=== PATIENT | female | born 1970 | race Caucasian/White ===

== ENCOUNTER 2016-03-31 09:43 | Emergency (ER) | payer OTHER ==
[~2016-03-31] VITALS: Ht 162.6 cm; Wt 61.2 kg
[~2016-03-31 09:43] MED LIST: ACID1TAB14 PO; ASPI81TA44 PO; Cholestyramine/Aspartame PO; EZET10TA3 PO; FAMO-63 PO; FLUC100T7 PO; HYDR-2762 PO; HYDR-971 PO; HYDR200T PO; LEVO150T PO; LEVO50TA PO; METO25TA2 PO; ORPH100T PO; OXYC-323 PO; PRAV40TA2 PO; PRED-220 PO; PRED20TA PO; PRED50TA PO; PRED5TAB PO; SULF1TAB24 PO; Vancomycin Hcl PO
[2016-03-31 10:50] VITALS: BP 146/79
[2016-03-31] MEDS ORDERED: PRED20TA PO (11:39)
--- NOTE | 2016-03-31 11:39 | PHYS DOC ---
Past Medical History Past Medical History: Arthritis, High Cholesterol, Hypertension, Kidney Stone, Other Additional Past Medical Histor: RA, CDiff Past Surgical History: Cholecystectomy, Hysterectomy, Other Additional Past Surgical Histo: cystoscopy, C4C5 fusion, ACL repair Alcohol Use: None Drug Use: None Adult General Chief Complaint Chief Complaint: Neck Pain HPI HPI Patient is a 46 year old female presents emergency department stating she is having neck pain and right upper back pain. She states the pain radiates into her chest and down into her right arm. She was seen here recently for the same type of pain and discomfort was placed on prednisone Norflex and Percocet. She states that this really didn't help she does state the prednisone helped quite a bit. She still has the Norflex but is completely out of the Percocet. She does have an appointment with her physician on Friday. Patient states that she has been placing heat on the neck and upper back area without relief. Patient denies any numbness or tingling down to her arms. She does have equal strength and equal uat tester bilaterally. Review of Systems Review of Systems Constitutional: Denies fever or chills [] Eyes: Denies change in visual acuity, redness, or eye pain [] HENT: Denies nasal congestion or sore throat [] Respiratory: Denies cough or shortness of breath [] Cardiovascular: No additional information not addressed in HPI [] GI: Denies abdominal pain, nausea, vomiting, bloody stools or diarrhea [] : Denies dysuria or hematuria [] Musculoskeletal: C/o upper right back pain and discomfort with increase pain turning the head to the left Integument: Denies rash or skin lesions [] Neurologic: Denies headache, focal weakness or sensory changes [] [] Allergies Allergies Allergies Coded Allergies Type Severity Reaction Last Updated Verified Iodinated Contrast Media - Oral and Allergy Severe Anaphylaxis 05/26/15 Yes cefdinir Allergy Severe anaphylaxis 03/19/16 Yes ceftriaxone Allergy Severe anaphylaxis 03/19/16 Yes shellfish derived Allergy Severe 05/26/15 Yes cefazolin Allergy Intermediate 05/26/15 Yes ciprofloxacin Allergy Intermediate 03/19/16 Yes codeine Allergy Intermediate MORPHINE OK, HYDROCODONE AT HOME 03/19/16 Yes erythromycin base Allergy Intermediate 12/01/14 Yes latex Allergy Intermediate Rash 05/26/15 Yes strawberry Allergy Unknown 03/19/16 Yes Physical Exam Physical Exam Constitutional: Well developed, well nourished, no acute distress, non-toxic appearance. [] HENT: Normocephalic, atraumatic, bilateral external ears normal, oropharynx moist, no oral exudates, nose normal. [] Eyes: PERRLA, EOMI, conjunctiva normal, no discharge. [] Neck: Normal range of motion, no tenderness, supple, no stridor. [] Cardiovascular:Heart rate regular rhythm, no murmur [] Lungs & Thorax: Bilateral breath sounds clear to auscultation [] Skin: Warm, dry, no erythema, no rash. [] Back: right paraspinal tenderness Extremities: No tenderness, no cyanosis, no clubbing, ROM intact, no edema. Equal uat tester, equal strength to upper extremities noted. Neurologic: Alert and oriented X 3, normal motor function, normal sensory function, no focal deficits noted. [] Psychologic: Affect normal, judgement normal, mood normal. [] Current Patient Data Vital Signs Vital Signs Date Time Temp Pulse Resp B/P Pulse Ox O2 Delivery O2 Flow Rate FiO2 03/31/16 10:50 99.0 106 18 100 Room Air 99.0 EKG EKG [] Radiology/Procedures Radiology/Procedures [] Course & Med Decision Making Course & Med Decision Making Pertinent Labs and Imaging studies reviewed. (See chart for details) Patient was recommended to continue to use the Norflex which she states she has plenty of pills left. We'll provide her with further prednisone for the next 5 days. We'll also recommended ibuprofen for pain and discomfort. Ice packs on 20 minutes off 20 minutes several times a day. Patient will be discharged home in stable condition signs and symptoms to return back to emergency department been provided. Patient agrees with treatment regimens and follow-up recommendations. [] Dragon Disclaimer Dragon Disclaimer This electronic medical record was generated, in whole or in part, using a voice recognition dictation system. Departure Departure Impression: Primary Impression: Cervical radiculopathy Disposition: HOME, SELF-CARE Condition: STABLE Referrals: EVELIA CORBETT (PCP) Patient Instructions: Soft Tissue Injury of the Neck, [id number] Additional Instructions: Activity as tolerated. Continue using her Norflex as you've been prescribed. Ibuprofen 800 mg every 8 hours with food stop taking few develop an upset stomach. Medications as prescribed. Ice packs on 20 minutes off 20 minutes several times a day. Keep your follow-up appointment that you have on Friday. Return back to emergency department sign symptoms of become worse. Scripts Prednisone 20 Mg Etvpep64 Mg PO DAILY #10 TAB Prov:CORY JIANG NP 03/31/16 CORY JIANG NP Mar 31, 2016 11:39
== END 2016-03-31 11:44 | disposition home or self-care (01) ==
LOC: ER 09:43
DX: M54.12 Radiculopathy, cervical region (principal); M19.90 Unspecified osteoarthritis, unspecified site; E78.00 Pure hypercholesterolemia, unspecified; I10 Essential (primary) hypertension; Z90.49 Acquired absence of other specified parts of digestive tract; Z87.442 Personal history of urinary calculi; Z90.710 Acquired absence of both cervix and uterus; Z91.041 Radiographic dye allergy status; Z91.040 Latex allergy status; Z88.5 Allergy status to narcotic agent; Z91.013 Allergy to seafood; Z88.8 Allergy status to other drugs, medicaments and biological substances; Z91.018 Allergy to other foods
CPT/HCPCS: 99283

== ENCOUNTER → 2016-04-05 | Outpatient (CLI) | payer OTHER ==
[2016-03-31 10:50] VITALS: BP 146/79
[~2016-04-05] MED LIST changes: +ALBU2.5V14 NEB; +BUDE10.2 IH; +IOHEXOL 180 MG/ML 10 ML VIAL. ONE; +ONDA4TAB7 PO; +VENTOLIN HFA18 GM INH; +methylPREDNISolone ACETATE 40 MG/ML VIAL. ONE; +methylPREDNISolone ACETATE 80 MG/ML VIAL. ONE
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
== END ==
LOC: PNCL 07:23
PROVIDERS: ATTEND Anesthesiology
DX: M50.123 Cervical disc disorder at C6-C7 level with radiculopathy (principal); I10 Essential (primary) hypertension; M19.90 Unspecified osteoarthritis, unspecified site; E03.9 Hypothyroidism, unspecified
CPT/HCPCS: 62321; J1030; J1040

== ENCOUNTER 2016-04-06 18:43 | Emergency (ER) | payer OTHER ==
[~2016-04-06] VITALS: Ht 162.6 cm; Wt 61.2 kg
[~2016-04-06 18:43] MED LIST changes: -IOHEXOL 180 MG/ML 10 ML VIAL. ONE; -ONDA4TAB7 PO; -methylPREDNISolone ACETATE 40 MG/ML VIAL. ONE; -methylPREDNISolone ACETATE 80 MG/ML VIAL. ONE
[2016-04-06] MEDS ORDERED: ONDANSETRON ODT 4 MG TAB.RAPDIS PO ONE (20:00)
[2016-04-06] MEDS ORDERED: HYDROMORPHONE 2 MG/ML VIAL. IM ONE (20:00)
[2016-04-06] MEDS ORDERED: OXYC-323 PO (20:40)
[2016-04-06] MEDS ORDERED: ONDA4TAB7 PO (20:40)
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
[2016-04-07 02:44] VITALS: BP 141/81
== END 2016-04-06 20:24 | disposition home or self-care (01) ==
LOC: ER 18:43
DX: M54.12 Radiculopathy, cervical region (principal); E78.00 Pure hypercholesterolemia, unspecified; I10 Essential (primary) hypertension; Z87.442 Personal history of urinary calculi; M19.90 Unspecified osteoarthritis, unspecified site; Z90.710 Acquired absence of both cervix and uterus; Z90.49 Acquired absence of other specified parts of digestive tract; Z88.2 Allergy status to sulfonamides; Z88.8 Allergy status to other drugs, medicaments and biological substances; Z88.1 Allergy status to other antibiotic agents; Z91.041 Radiographic dye allergy status; Z91.040 Latex allergy status; Z91.018 Allergy to other foods; Z88.5 Allergy status to narcotic agent
CPT/HCPCS: 96372; 99283; J1170; Q0162

== ENCOUNTER → 2016-04-11 | Outpatient (CLI) | payer OTHER ==
[2016-04-07 02:44] VITALS: BP 141/81
[~2016-04-11] MED LIST changes: +ONDA4TAB7 PO
--- NOTE | 2016-04-11 16:13 | KCIC ---
PROCEDURE CT cervical spine without contrast. HISTORY Cervical stenosis, fusion, history of fracture TECHNIQUE Noncontrast CT imaging was performed of the cervical spine, multiplanar reconstruction images submitted. Exposure: One or more of the following individualized dose reduction techniques were utilized for this exam: 1. Automated exposure control. 2. Adjustment of the mA and/or kV according to patient size. 3. Use of iterative reconstruction technique. COMPARISON 03/18/2016 MRI cervical spine exam [facility], no previous C cervical spine t exam available FINDINGS There again has been anterior cervical fusion at C4-C5 with intact anterior metallic plate and screws. There is likely at least partial interbody fusion at this level. There is mild degenerative disc disease at C3-4 and C5-C6, some endplate irregularity of C5-C6. Atlantoaxial distance is within normal limits, mild associated degenerative change. There is adequate alignment of the lateral masses C1 relative to C2. Occipital condylar-C1 articulation is maintained. C2-3: Spinal canal and neural foramina are adequate. C3-C4: There is minimal posterior bulge better seen on MRI, overall mild spinal stenosis. Osseous neural foramina are adequate. C4-5: Osseous spinal canal and neural foramina are adequate. C5-C6: There is minimal disc osteophyte complex somewhat greater in the left lateral recess. There is again likely mild spinal stenosis. There is left uncovertebral degenerative change, mild facet degenerative change. There is moderate narrowing of the left neural foramen, right neural foramen adequate. C6-7: Osseous spinal canal and neural foramina are adequate C7-T1: Osseous spinal canal and neural foramina are adequate. IMPRESSION 1. There is intact anterior cervical fusion hardware C4-5, partial interbody fusion at this level. 2. There is mild degenerative disc disease at C3-4 and C5-C6, mild spondylosis. There is again suspected mild spinal stenosis at C5-C6 and C3-4. 3. There is moderate narrowing of the left C5-C6 neural foramen due to uncovertebral degenerative change. Electronically signed by: Michi Monet MD (Apr 11, 2016 16:11:51)
== END | disposition home or self-care (01) ==
LOC: KCIC CT 13:33
PROVIDERS: ATTEND Neurological Surgery
DX: M50.322 Other cervical disc degeneration at C5-C6 level (principal); M47.892 Other spondylosis, cervical region
CPT/HCPCS: 72125

== ENCOUNTER → 2016-04-12 | Outpatient (CLI) | payer OTHER ==
[2016-04-07 02:44] VITALS: BP 141/81
--- NOTE | 2016-04-12 15:50 | KCIC ---
PROCEDURE MRI cervical spine without contrast. HISTORY Cervical radiculopathy, previous anterior cervical fusion, headaches and right arm pain TECHNIQUE Multiplanar, multi sequential non contrast MR imaging was performed of the cervical spine. COMPARISON CT cervical spine April 11, 2016, also MRI cervical spine 03/18/2016 FINDINGS As seen previously, there has been anterior cervical fusion at C4-C5. Cervical vertebral body stature and AP alignment are maintained. Cervical cord caliber is within normal limits without convincing, reproducible signal abnormality on the various image sequences. There is no significant marrow edema, some artifact created by hardware. There is mild degenerative disc disease at C3-4 and C5-C6. C2-3: Spinal canal and neural foramina are adequate. C3-C4: There is again minimal bulge. There is posterior annular tear. Central canal is minimally narrowed to 8 millimeters. Neural foramina are adequate. C4-5: Spinal canal and neural foramina are adequate. C5-C6: There is some artifact created by hardware. There is minimal disc osteophyte complex relatively greater in the left lateral recess. Central canal is minimally narrowed to approximately 9 millimeters. Right neural foramen is adequate. There is left uncovertebral and facet degenerative change, moderate narrowing of the left neural foramen. C6-7: Spinal canal and neural foramina are adequate. C7-T1: Spinal canal and neural foramina are adequate. IMPRESSION 1. There again has been anterior cervical fusion C4-5. 2. There is mild spinal stenosis C3-4 and C5-C6. 3. There is moderate narrowing of the left C5-C6 neural foramen due to facet and uncovertebral degenerative change, right neural foramen adequate at this level. 4. There is mild degenerative disc disease and spondylosis at C5-C6, mild degenerative disc disease C3-4. Electronically signed by: Michi Monet MD (Apr 12, 2016 15:49:23)
== END | disposition home or self-care (01) ==
LOC: KCIC MRI 14:12
PROVIDERS: ATTEND Neurological Surgery
DX: M48.02 Spinal stenosis, cervical region (principal); M50.31 Other cervical disc degeneration, high cervical region; M50.322 Other cervical disc degeneration at C5-C6 level; M47.892 Other spondylosis, cervical region
CPT/HCPCS: 72141

== ENCOUNTER 2016-07-13 23:23 | Inpatient (IN) | payer OTHER ==
[~2016-07-13] VITALS: Ht 162.6 cm; Wt 59.0 kg
[~2016-07-13 23:23] MED LIST changes: +EZET10TA18 PO; -EZET10TA3 PO
[2016-07-13 23:56] LABS: BASO # 0.1 x10^3/uL (0.0-0.2); BASO % 0 % (0-3); EOS % 0 % (0-3); HEMATOCRIT 41.9 % (36.0-47.0); HEMOGLOBIN 13.6 g/dL (12.0-15.5); LYMPH # 5.2 x10^3/uL (1.0-4.8); LYMPH % 33 % (24-48); MEAN CORPUSCULAR HEMOGLOBIN 29 pg (25-35); MEAN CORPUSCULAR HGB CONC 33 g/dL (31-37); MEAN CORPUSCULAR VOLUME 91 fL (79-100); MONO % 7 % (0-9); NEUT % 59 % (31-73); PLATELET COUNT 356 x10^3/uL (140-400); RED BLOOD COUNT 4.62 x10^6/uL (3.50-5.40); RED CELL DISTRIBUTION WIDTH 14.3 % (11.5-14.5); WHITE BLOOD COUNT 15.9 x10^3/uL (4.0-11.0)
[2016-07-14] LABS: BILIRUBIN,URINE NEGATIVE (NEG); GLUCOSE,URINE NEGATIVE (NEG); NITRITE,URINE NEGATIVE (NEG); PH,URINE 6.5; PROTEIN,URINE NEGATIVE (NEG-TRACE); UROBILINOGEN,URINE 0.2 mg/dL (0.2 mg/dL)
[2016-07-14] MEDS ORDERED: IV NORMAL SALINE 1000ML BAG 1,000 ML IV ONE
[2016-07-14] MEDS ORDERED: KETOROLAC TROMETHAMINE 30 MG/ML INJ. IV ONE
[2016-07-14] MEDS ORDERED: MORPHINE SULFATE 4 MG/ML DISP.SYRIN. IV ONE
--- NOTE | 2016-07-14 00:09 | PHYS DOC ---
Past Medical History Past Medical History: Kidney Stone Additional Past Medical Histor: pancreatitis, C-diff, thyroid cancer, rheumatoid arthritis Past Surgical History: Hysterectomy, Other Additional Past Surgical Histo: thyroidectomy Alcohol Use: None Drug Use: None Adult General Chief Complaint Chief Complaint: FLANK PAIN HPI HPI This is a 46-year-old female who's had some right-sided flank pain that wraps around from her right flank her right upper quadrant for the last day. Patient states she's had multiple episodes of nausea and vomiting as well. She states she's had some dysuria type symptoms but denies any hematuria. She rates her pain a 7 out of 10 on the pain scale. She states she's had history of gallbladder surgery. On arrival, the patient does not appear to be in any acute distress. Patient is afebrile and nontoxic in appearance. Review of Systems Review of Systems Constitutional: Denies fever or chills [] Eyes: Denies change in visual acuity, redness, or eye pain [] HENT: Denies nasal congestion or sore throat [] Respiratory: Denies cough or shortness of breath [] Cardiovascular: No additional information not addressed in HPI [] GI: Denies abdominal pain, nausea, vomiting, bloody stools or diarrhea [] : Has dysuria, denies hematuria [] Musculoskeletal: Denies back pain or joint pain [] Integument: Denies rash or skin lesions [] Neurologic: Denies headache, focal weakness or sensory changes [] Endocrine: Denies polyuria or polydipsia [] Current Medications Current Medications Current Medications Medications (Trade) Dose Ordered Sig/Adia Start Time Stop Time Status Last Admin Dose Admin Ceftriaxone Sodium 0 ml @ As Directed STK-MED ONCE 07/14/16 01:05 07/14/16 01:06 DC Diphenhydramine HCl (Benadryl) 50 mg 1X ONCE 07/14/16 01:30 07/14/16 01:31 DC Hydromorphone HCl (Dilaudid) 1 mg 1X ONCE 07/14/16 01:00 07/14/16 01:01 DC 07/14/16 01:20 1 MG Ketorolac Tromethamine (Toradol) 30 mg 1X ONCE 07/14/16 00:00 07/14/16 00:01 DC 07/14/16 00:10 30 MG Levofloxacin/ Dextrose 150 ml @ 100 mls/hr 1X ONCE 07/14/16 01:30 07/14/16 02:59 DC 07/14/16 01:19 100 MLS/HR Morphine Sulfate 4 mg 1X ONCE 07/14/16 00:00 07/14/16 00:01 DC 07/14/16 00:10 4 MG Ondansetron HCl (Zofran) 4 mg 1X ONCE 07/14/16 01:30 07/14/16 01:31 DC 07/14/16 01:20 4 MG Sodium Chloride 1,000 ml @ 1,000 mls/hr 1X ONCE 07/14/16 00:00 07/14/16 00:59 DC 07/14/16 00:10 1,000 MLS/HR Allergies Allergies Allergies Coded Allergies Type Severity Reaction Last Updated Verified Iodinated Contrast Media - Oral and Allergy Severe Anaphylaxis 05/26/15 Yes cefdinir Allergy Severe anaphylaxis 03/19/16 Yes ceftriaxone Allergy Severe anaphylaxis 03/19/16 Yes shellfish derived Allergy Severe 05/26/15 Yes cefazolin Allergy Intermediate 05/26/15 Yes ciprofloxacin Allergy Intermediate RASH ONLY 07/14/16 Yes codeine Allergy Intermediate MORPHINE OK, HYDROCODONE AT HOME 03/19/16 Yes erythromycin base Allergy Intermediate 12/01/14 Yes latex Allergy Intermediate Rash 05/26/15 Yes strawberry Allergy Unknown 03/19/16 Yes Physical Exam Physical Exam Constitutional: Well developed, well nourished, no acute distress, non-toxic appearance. [] HENT: Normocephalic, atraumatic, bilateral external ears normal, oropharynx moist, no oral exudates, nose normal. [] Eyes: PERRLA, EOMI, conjunctiva normal, no discharge. [] Neck: Normal range of motion, no tenderness, supple, no stridor. [] Cardiovascular:Heart rate regular rhythm, no murmur [] Lungs & Thorax: Bilateral breath sounds clear to auscultation [] Abdomen: Bowel sounds normal, soft, no tenderness, no masses, no pulsatile masses. [] Skin: Warm, dry, no erythema, no rash. [] Back: No tenderness, right CVA tenderness. [] Extremities: No tenderness, no cyanosis, no clubbing, ROM intact, no edema. [] Neurologic: Alert and oriented X 3, normal motor function, normal sensory function, no focal deficits noted. [] Psychologic: Affect normal, judgement normal, mood normal. [] Current Patient Data Vital Signs Vital Signs Date Time Temp Pulse Resp B/P (MAP) Pulse Ox O2 Delivery O2 Flow Rate FiO2 07/14/16 02:30 68 18 141/79 (99) 96 Room Air 07/13/16 23:54 99.3 99.3 Lab Values Laboratory Tests Test 07/13/16 23:40 07/13/16 23:50 White Blood Count 15.9 x10^3/uL (4.0-11.0) H Red Blood Count 4.62 x10^6/uL (3.50-5.40) Hemoglobin 13.6 g/dL (12.0-15.5) Hematocrit 41.9 % (36.0-47.0) Mean Corpuscular Volume 91 fL (79-100) Mean Corpuscular Hemoglobin 29 pg (25-35) Mean Corpuscular Hemoglobin Concent 33 g/dL (31-37) Red Cell Distribution Width 14.3 % (11.5-14.5) Platelet Count 356 x10^3/uL (140-400) Neutrophils (%) (Auto) 59 % (31-73) Lymphocytes (%) (Auto) 33 % (24-48) Monocytes (%) (Auto) 7 % (0-9) Eosinophils (%) (Auto) 0 % (0-3) Basophils (%) (Auto) 0 % (0-3) Neutrophils # (Auto) 9.4 x10^3uL (1.8-7.7) H Lymphocytes # (Auto) 5.2 x10^3/uL (1.0-4.8) H Monocytes # (Auto) 1.2 x10^3/uL (0.0-1.1) H Eosinophils # (Auto) 0.0 x10^3/uL (0.0-0.7) Basophils # (Auto) 0.1 x10^3/uL (0.0-0.2) Sodium Level 143 mmol/L (136-145) Potassium Level 3.9 mmol/L (3.5-5.1) Chloride Level 105 mmol/L (98-107) Carbon Dioxide Level 32 mmol/L (21-32) Anion Gap 6 (6-14) Blood Urea Nitrogen 19 mg/dL (7-20) Creatinine 0.7 mg/dL (0.6-1.0) Estimated GFR (Cockcroft-Gault) 90.1 Glucose Level 91 mg/dL (70-99) Calcium Level 8.6 mg/dL (8.5-10.1) Urine Collection Type U cath Urine Color Yellow Urine Clarity Clear Urine pH 6.5 Urine Specific Piru 1.020 Urine Protein Negative mg/dL (NEG-TRACE) Urine Glucose (UA) Negative mg/dL (NEG) Urine Ketones (Stick) Negative mg/dL (NEG) Urine Blood Negative (NEG) Urine Nitrite Negative (NEG) Urine Bilirubin Negative (NEG) Urine Urobilinogen Dipstick 0.2 mg/dL (0.2 mg/dL) Urine Leukocyte Esterase Moderate (NEG) Urine RBC 3-5 /HPF (0-2) Urine WBC >40 /HPF (0-4) Urine Squamous Epithelial Cells Few /LPF Urine Bacteria Few /HPF (0-FEW) Laboratory Tests 07/13/16 23:40 Laboratory Tests 07/13/16 23:40 EKG EKG [] Radiology/Procedures Radiology/Procedures CT abdomen and pelvis without contrast: Reason for examination: Right flank pain for one day. No hematuria. Helical images were obtained through the abdomen and pelvis with no intravenous or oral contrast administered. Reconstruction was performed in sagittal and coronal plane. Exposure: One or more of the following individualized dose reduction techniques were utilized for this examination: 1. Automated exposure control 2. Adjustment of the mA and/or kV according to patient size 3. Use of iterative reconstruction technique. The lung bases are clear. The heart size is normal with no pericardial effusion seen. The liver shows no focal lesions. There is some pneumobilia. Gallbladder is surgically absent. No abnormality is seen at the spleen, adrenal glands or pancreas. The abdominal aorta and inferior vena cava show no abnormalities. The kidneys bilaterally show no masses. There are nonobstructing renal calculi bilaterally. The right renal pelvis is mildly prominent and there does appear to be a tiny calculus in the right pelvis which is probably in the distal right ureter and measures approximately 3.7 mm in size. No abnormality seen in the appendix. The intestinal tract shows moderate amount of fecal material within the colon. There is no evidence of diverticulitis. There is no evidence of bowel obstruction or abnormally thickened bowel grijalva. No abnormality is seen at the bladder or vaginal cuff. No free fluid or free air is seen in the abdomen. No acute bony abnormalities are seen. IMPRESSION: Pneumobilia post cholecystectomy. Bilateral nonobstructing renal calculi. Mild right hydronephrosis with a 3.7 mm calculus in the distal right ureter. Electronically signed by: Rupa Gruber MD (07/14/2016 2:24 AM) Course & Med Decision Making Course & Med Decision Making Pertinent Labs and Imaging studies reviewed. (See chart for details) This 46-year-old female who's having some right-sided flank pain will have full laboratory work including a UA and a CT of her abdomen pelvis without contrast to rule out a ureteral stone as the cause of her symptoms. She has required multiple doses of Dilaudid. Her laboratory workup is fairly unremarkable other than a urinalysis that demonstrates moderate amount of leukocyte esterase and WBCs. Her CT of her abdomen and pelvis demonstrated a mild right-sided hydronephrosis with a 3.7 mm stone in the distal right ureter. In light of the fact that she has a UTI and a stone I will be admitting her for further treatment. A dose of IV Levaquin was given as the patient has significant cephalosporin allergy. A urology consult will be placed. I'll discuss the need to admit the patient with the hospitalist, Dr. Shen. As needed Dilaudid orders were given for her continued pain. Dragon Disclaimer Dragon Disclaimer This electronic medical record was generated, in whole or in part, using a voice recognition dictation system. Departure Departure Impression: Primary Impression: Pyelonephritis Additional Impression: Ureteral stone Disposition: ADMITTED INPATIENT Admitting Physician: Paula Shen Condition: STABLE Referrals: EVELIA CORBETT (PCP) Problem Qualifiers STEVE MORALES DO Jul 14, 2016 00:09
[2016-07-14 00:10] LABS: CALCIUM 8.6 mg/dL (8.5-10.1); CREATININE 0.7 mg/dL (0.6-1.0); GFR 90.1; POTASSIUM 3.9 mmol/L (3.5-5.1)
[2016-07-14 00:55] LABS: BACTERIA,URINE FEW /HPF (0-FEW); SQUAMOUS EPITHELIAL CELL,UR FEW /LPF; WBC,URINE >40 /HPF (0-4)
[2016-07-14] MEDS ORDERED: HYDROmorphone 2 MG/ML VIAL IV ONE ×2 (01:00→03:00)
[2016-07-14] MEDS ORDERED: CEFTRIAXONE 1 GM IV ONE (01:05)
[2016-07-14] MEDS ORDERED: [UNRECOGNIZED DRUG - OTHER] IV ONE (01:05)
[2016-07-14] MEDS ORDERED: ONDANSETRON PF 4 MG/2 ML VIAL. IV ONE ×2 (01:30)
[2016-07-14] MEDS ORDERED: diphenhydrAMINE 50 MG/ML VIAL IVP ONE (01:30)
--- NOTE | 2016-07-14 02:27 | RAD ---
CT abdomen and pelvis without contrast: Reason for examination: Right flank pain for one day. No hematuria. Helical images were obtained through the abdomen and pelvis with no intravenous or oral contrast administered. Reconstruction was performed in sagittal and coronal plane. Exposure: One or more of the following individualized dose reduction techniques were utilized for this examination: 1. Automated exposure control 2. Adjustment of the mA and/or kV according to patient size 3. Use of iterative reconstruction technique. The lung bases are clear. The heart size is normal with no pericardial effusion seen. The liver shows no focal lesions. There is some pneumobilia. Gallbladder is surgically absent. No abnormality is seen at the spleen, adrenal glands or pancreas. The abdominal aorta and inferior vena cava show no abnormalities. The kidneys bilaterally show no masses. There are nonobstructing renal calculi bilaterally. The right renal pelvis is mildly prominent and there does appear to be a tiny calculus in the right pelvis which is probably in the distal right ureter and measures approximately 3.7 mm in size. No abnormality seen in the appendix. The intestinal tract shows moderate amount of fecal material within the colon. There is no evidence of diverticulitis. There is no evidence of bowel obstruction or abnormally thickened bowel grijalva. No abnormality is seen at the bladder or vaginal cuff. No free fluid or free air is seen in the abdomen. No acute bony abnormalities are seen. IMPRESSION: Pneumobilia post cholecystectomy. Bilateral nonobstructing renal calculi. Mild right hydronephrosis with a 3.7 mm calculus in the distal right ureter. Electronically signed by: Rupa Gruber MD (07/14/2016 2:24 AM)
[2016-07-14] MEDS ORDERED: ACETAMINOPHEN 325 MG TABLET. PO PRN (02:45)
[2016-07-14] MEDS ORDERED: ONDANSETRON PF 4 MG/2 ML VIAL. IV PRN (03:00)
[2016-07-14 04:00] VITALS: BP 132/78
[2016-07-14] MEDS: HYDROmorphone 2 MG/ML VIAL IV PRN ×9 (04:47→22:24)
[2016-07-14] MEDS: IV NORMAL SALINE 1000ML BAG 1,000 ML IV SCH ×3 (04:48→17:44)
[2016-07-14 07:00] VITALS: BP 131/82
[2016-07-14 11:00] VITALS: BP 132/76
[2016-07-14] MEDS ORDERED: PROCHLORPERAZINE 10 MG/2 ML VIAL. IV PRN (13:00)
[2016-07-14] MEDS: KETOROLAC 15 MG/ML VIAL. IV PRN ×2 (13:17→19:54)
[2016-07-14] MEDS: TAMSULOSIN 0.4 MG CAP.ER.24H. PO SCH (14:30)
[2016-07-14 15:00] VITALS: BP 126/73
[2016-07-14] MEDS: EZETIMIBE 10 MG TABLET. PO SCH (15:00)
[2016-07-14] MEDS: LEVOTHYROXINE 100 MCG TABLET PO SCH (15:00)
[2016-07-14] MEDS: METOPROLOL SUCC 24HR ER 25 MG TAB.ER.24H. PO SCH (15:00)
[2016-07-14] MEDS: ONDANSETRON PF 4 MG/2 ML VIAL. IV PRN ×2 (15:36→22:24)
[2016-07-14 19:00] VITALS: BP 128/78
--- NOTE | 2016-07-14 19:23 | HP ---
ADMIT DATE: 07/14/2016 CHIEF COMPLAINT: Flank pain. HISTORY OF PRESENT ILLNESS: The patient is a pleasant 46-year-old female who presents with flank pain. She ranks it at 9/10. She has associated nausea. It has been occurring for a couple of days off and on. She has known previous kidney stones. We did a CAT scan ____ she has got another kidney stone. We are going to admit the patient and consult Dr. Oates. PAST MEDICAL HISTORY: Kidney stones, pancreatitis, C. difficile, thyroid cancer, rheumatoid arthritis, hysterectomy and thyroidectomy. ALLERGIES: IODINE, CEFAZOLIN, CIPRO, CODEINE, ERYTHROMYCIN, LATEX, STRAWBERRIES. FAMILY HISTORY: Kidney stones. SOCIAL HISTORY: She does not drink, smoke or take drugs. MEDICATIONS: Reviewed, please refer to the MRAD. REVIEW OF SYSTEMS: GENERAL: No history of weight change, weakness or fevers. SKIN: No bruising, hair changes or rashes. EYES: No blurred, double or loss of vision. NOSE AND THROAT: No history of nosebleeds, hoarseness or sore throat. HEART: No history of palpitations, chest pain or shortness of breath on exertion. LUNGS: Denies cough, hemoptysis, wheezing or shortness of breath. GASTROINTESTINAL: She complains of flank pain and nausea. GENITOURINARY: No history of frequency, urgency, hesitancy or nocturia. NEUROLOGIC: Denies history of numbness, tingling, tremor or weakness. PSYCHIATRIC: No history of panic, anxiety or depression. ENDOCRINE: No history of heat or cold intolerance, polyuria or polydipsia. EXTREMITIES: Denies muscle weakness, joint pain, pain on walking or stiffness. PHYSICAL EXAMINATION: VITAL SIGNS: Temperature afebrile, pulse 62, respirations 18, blood pressure 152/89. GENERAL: She is alert, cooperative, complaining of pain. HEART: Normal S1, S2. LUNGS: Clear. ABDOMEN: Soft. Decreased bowel sounds, tender in the right quadrant. EXTREMITIES: No edema. SKIN: No rashes. PSYCHIATRIC: She is anxious. VASCULAR: Good capillary refill. ENDOCRINE: No thyromegaly. LYMPHATICS: No cervical nodes. HEMATOPOIETIC: No bruising. LABORATORY DATA: White count 15, hemoglobin 14, platelets 356. ASSESSMENT AND PLAN: Symptomatic kidney stones. The patient has been admitted. We will strain her urine, IV antibiotics, IV fluids, p.r.n. narcotics, consult Dr. Oates, continue home medicines. PROGNOSIS: Guarded. ALVINO DUQUE DO DR: NICOLAS/sarah JOB#: [id number] / [id number]
[2016-07-14] MEDS: ATORVASTATIN CALCIUM 10 MG TABLET. PO SCH (19:54)
[2016-07-14 23:00] VITALS: BP 120/65
--- NOTE | 2016-07-15 00:03 | ACF ---
Admission Forms Criteria PYELONEPHRITIS, ACUTE Clinical Indications for Admission to Inpatient Care (Place 'X' for any and all applicable criteria): Admission is indicated for ANY ONE of the following 1,2,3,4,5 [ ]I. Outpatient treatment has failed or is not feasible (eg, multidrug- resistant organism).5 [ ]II. beyond 24 weeks' gestation6 [ ]III. Hemodynamic instability [ ]IV. Immunocompromised state (eg, AIDS, diabetes, sickle cell disease) [X]V. Known renal or urologic abnormalities (eg, indwelling catheter, structural abnormalities, renal calculi, urinary stent, previous urologic surgery) [ ]. Condition that requires drainage procedure, including ANY ONE of the following: [ ]a) Urinary obstruction [ ]b) Pyelitis [ ]c) Pyonephrosis [ ]d) Renal or perinephric abscess [ ]e) Emphysematous pyelonephritis 7 [ ]VII. Inpatient admission required rather than observation care (Also use Pyelonephritis, Acute: Observation Care Criteria as appropriate) because of ANY ONE of the following: [ ]a) High fever or infection requiring inpatient admission as indicated by ANY ONE of [id number] [ ]A. Documented bacteremia [ ]B. Temp>104.9 [id number] (oral) [ ]C. Temp>103.10F (oral) or <96.80F (rectal) that does not respond to all emergency treatment [ ]b) Acute renal failure [ ]c) Other significant finding or clinical condition judged not to be within the scope of observation care [ ]d) IV fluid to replace significant ongoing (eg, for over 24hrs) losses (> 3 L/m2 per day) [ ]e) Other condition,treatment or monitoring requiring inpatient admission The original [facility] content created by [facility] has been revised. The portions of the content which have been revised are identified through the use of italic text or in bold, and [facility] has neither reviewed nor approved the modified material. All other unmodified content is copyright [facility]. Please see references footnoted in the original [facility] edition 2016 Admission Criteria Met?: Yes DARRELL LOMBARDO Jul 15, 2016 00:03
[2016-07-15] MEDS: HYDROmorphone 2 MG/ML VIAL IV PRN ×10 (00:41→23:01)
--- NOTE | 2016-07-15 00:42 | CONS ---
DATE OF CONSULTATION: 07/14/2016 CHIEF COMPLAINT: Acute right flank pain. HISTORY OF PRESENT ILLNESS: This is a 46-year-old female admitted through the Emergency Room. She was experiencing acute right flank pain. A CT scan was performed which revealed a 4 mm calculus in the distal right ureter with mild obstructive changes. She also had bilateral nephrolithiasis. UROLOGICAL HISTORY: The patient has a history of multiple kidney stones. She states that she had 3 kidney stones last year. She is a patient of Dr. Stinson, a urologist in the [facility]. She has not been placed on medical preventive therapy in the past. She states that her stones have been calcium in nature. Occasionally, the patient states that she has passed her stones spontaneously, but other times she has needed intervention. PAST MEDICAL HISTORY: Significant for multiple kidney stones in the past, pancreatitis, C. diff, thyroid cancer and rheumatoid arthritis. PAST SURGICAL HISTORY: The patient has had a hysterectomy, thyroidectomy and cystoscopy procedures for kidney stones. ALLERGIES: THE PATIENT IS ALLERGIC TO MULTIPLE MEDICATIONS INCLUDING IV CONTRAST, CEFAZOLIN, CEFTRIAXONE, CIPROFLOXACIN, CODEINE, ERYTHROMYCIN, LATEX, SHELLFISH. REVIEW OF SYSTEMS: A 14-point review of systems performed, most significant is her HPI and history of multiple kidney stones in the past. PHYSICAL EXAMINATION: GENERAL DESCRIPTION: A 46-year-old female. She is alert and oriented, does not appear to be in any acute pain or discomfort at this time. ABDOMEN: Soft, nontender. Negative for guarding or rigidity, some mild right lower flank discomfort to palpation, the left flank was normal. No suprapubic tenderness. EXTREMITIES: Good range of motion. Negative for cyanosis or edema. LABORATORY STUDIES: The patient's white blood cell count slightly elevated at 15.9, hemoglobin 13.6, hematocrit 41.9, platelet count was adequate. Metabolic profile; normal electrolytes, BUN 19, creatinine 0.7, calcium 8.6. Urinalysis; juana in color, moderate leukocytes, 3-5 red blood cells, greater than 40 white blood cells, a few bacteria. Culture is pending at this time. X-RAY STUDIES: Noncontrast CT scan performed while the patient was in the Emergency Room reveals mild right hydronephrosis secondary to a 3.7 mm calculus in the distal right ureter. IMPRESSION: 1. Acute right ureteral colic - improved. 2. Distal right ureteral calculus (3.7 mm). 3. Bilateral nephrolithiasis. 4. Urinary tract infection. PLAN: 1. The patient has been placed on IV hydration at 125 mL an hour. 2. Flomax 0.4 mg daily. 3. We will strain her urine and see if we can get her to pass the stone with medical expulsive therapy. 4. I told the patient if she did not pass the stone, we probably schedule her for a cystoscopy, stent placement and then discharge her with the stent, so that she can follow up with her regular urologist, Dr. Stinson. She appears to understand and is agreeable. ROB HOWARD DO DR: KUMAR/sarah JOB#: [id number] / [id number]
[2016-07-15] MEDS: KETOROLAC 15 MG/ML VIAL. IV PRN ×2 (02:46→10:20)
[2016-07-15] MEDS: ONDANSETRON PF 4 MG/2 ML VIAL. IV PRN ×3 (02:46→23:05)
[2016-07-15 03:00] VITALS: BP 125/76
[2016-07-15] MEDS: LEVOTHYROXINE 100 MCG TABLET PO SCH (05:01)
[2016-07-15 05:41] LABS: BASO % 0 % (0-3); EOS % 1 % (0-3); HEMATOCRIT 36.8 % (36.0-47.0); HEMOGLOBIN 12.2 g/dL (12.0-15.5); LYMPH # 2.8 x10^3/uL (1.0-4.8); LYMPH % 26 % (24-48); MEAN CORPUSCULAR HEMOGLOBIN 30 pg (25-35); MEAN CORPUSCULAR HGB CONC 33 g/dL (31-37); MEAN CORPUSCULAR VOLUME 90 fL (79-100); MONO % 6 % (0-9); NEUT % 67 % (31-73); PLATELET COUNT 261 x10^3/uL (140-400); RED BLOOD COUNT 4.09 x10^6/uL (3.50-5.40); RED CELL DISTRIBUTION WIDTH 13.9 % (11.5-14.5); WHITE BLOOD COUNT 10.8 x10^3/uL (4.0-11.0)
[2016-07-15 05:57] LABS: CALCIUM 8.7 mg/dL (8.5-10.1); CREATININE 0.6 mg/dL (0.6-1.0); GFR 107.6; POTASSIUM 3.9 mmol/L (3.5-5.1)
[2016-07-15 07:00] VITALS: BP 124/74
[2016-07-15] MEDS: METOPROLOL SUCC 24HR ER 25 MG TAB.ER.24H. PO SCH (08:34)
[2016-07-15] MEDS: TAMSULOSIN 0.4 MG CAP.ER.24H. PO SCH (08:34)
[2016-07-15] MEDS: EZETIMIBE 10 MG TABLET. PO SCH (08:34)
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
[2016-07-15 10:47] VITALS: BP 112/77
[2016-07-15] MEDS: LACTOBACILLUS ACIDOPH & BULGAR 1 TABLET. PO SCH ×2 (13:13→17:37)
[2016-07-15 14:53] VITALS: BP 123/79
[2016-07-15] MEDS: IV NORMAL SALINE 1000ML BAG 1,000 ML IV SCH (16:39)
--- NOTE | 2016-07-15 16:47 | RAD ---
MR angiogram neck: Technique: 2-D [id number] MR angiogram of the neck was obtained. Additional 3-D [id number] MR angiogram through the region of the carotid bifurcations was also performed. Additional maximum intensity pixel projections were also obtained and presented in rotating format. Additional 3-D analysis was also performed. FINDINGS: No hemodynamically significant stenosis is identified in any of the visualized vessels of the neck. There is no evidence of dissection. The carotid bifurcations are widely patent bilaterally. There is antegrade flow in both vertebral arteries. The origins of the great vessels are within normal limits. IMPRESSION: Unremarkable MR angiogram of the neck. No evidence of hemodynamically significant stenosis. Electronically signed by: Andrea Delgado MD (07/15/2016 4:43 PM)
--- NOTE | 2016-07-15 16:59 | PDOC ---
Provider Note Provider Note Urology: Patient states she is still having right flank pain, she is on phone, does not appear to be in acute distress. Plan: I KUB in AM, may need cysto-stent. ROB HOWARD DO Jul 15, 2016 16:59
--- NOTE | 2016-07-15 17:41 | PDOC ---
PROGRESS NOTES Chief Complaint Chief Complaint Ureterolithiasis ASSESSMENT AND PLAN: 1. Renal colic R: sl improved. 3.7 mm stone in distal ureter. appreciate Dr Oates's input: conservative rx with IVF, flomax; if pain persists, plan for cystoscopy with stent placement 2. Pain control: continue current regimen (dilaudid PRN) 3. UTI: culture with low count mixed urogenital shekhar. no Abx indicated. 4. Diarrhea: hx of recurrent C.diff. PCR pending. HTN, HLD: well controlled. continue home meds History of Present Illness History of Present Illness pain tolerable on dilaudid. 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 Vitals Vitals Vital Signs Date Time Temp Pulse Resp B/P (MAP) Pulse Ox O2 Delivery O2 Flow Rate FiO2 07/15/16 16:39 Room Air 07/15/16 14:53 98.1 91 18 123/79 (94) 96 98.1 Physical Exam General: Alert, Oriented X3, Cooperative, No acute distress Heart: Regular rate Lungs: Clear, Other Abdomen: Normal bowel sounds, Other Extremities: No edema Skin: No rashes Labs LABS Laboratory Tests Test 07/15/16 05:20 White Blood Count 10.8 x10^3/uL (4.0-11.0) Red Blood Count 4.09 x10^6/uL (3.50-5.40) Hemoglobin 12.2 g/dL (12.0-15.5) Hematocrit 36.8 % (36.0-47.0) Mean Corpuscular Volume 90 fL (79-100) Mean Corpuscular Hemoglobin 30 pg (25-35) Mean Corpuscular Hemoglobin Concent 33 g/dL (31-37) Red Cell Distribution Width 13.9 % (11.5-14.5) Platelet Count 261 x10^3/uL (140-400) Neutrophils (%) (Auto) 67 % (31-73) Lymphocytes (%) (Auto) 26 % (24-48) Monocytes (%) (Auto) 6 % (0-9) Eosinophils (%) (Auto) 1 % (0-3) Basophils (%) (Auto) 0 % (0-3) Neutrophils # (Auto) 7.2 x10^3uL (1.8-7.7) Lymphocytes # (Auto) 2.8 x10^3/uL (1.0-4.8) Monocytes # (Auto) 0.7 x10^3/uL (0.0-1.1) Eosinophils # (Auto) 0.1 x10^3/uL (0.0-0.7) Basophils # (Auto) 0.0 x10^3/uL (0.0-0.2) Sodium Level 144 mmol/L (136-145) Potassium Level 3.9 mmol/L (3.5-5.1) Chloride Level 107 mmol/L (98-107) Carbon Dioxide Level 33 mmol/L (21-32) Anion Gap 4 (6-14) Blood Urea Nitrogen 7 mg/dL (7-20) Creatinine 0.6 mg/dL (0.6-1.0) Estimated GFR (Cockcroft-Gault) 107.6 Glucose Level 85 mg/dL (70-99) Calcium Level 8.7 mg/dL (8.5-10.1) Comment Review of Relevant I have reviewed the following items kristen (where applicable) has been applied. Labs Laboratory Tests Test 07/13/16 23:40 07/13/16 23:50 07/15/16 05:20 White Blood Count 15.9 x10^3/uL (4.0-11.0) 10.8 x10^3/uL (4.0-11.0) Red Blood Count 4.62 x10^6/uL (3.50-5.40) 4.09 x10^6/uL (3.50-5.40) Hemoglobin 13.6 g/dL (12.0-15.5) 12.2 g/dL (12.0-15.5) Hematocrit 41.9 % (36.0-47.0) 36.8 % (36.0-47.0) Mean Corpuscular Volume 91 fL (79-100) 90 fL (79-100) Mean Corpuscular Hemoglobin 29 pg (25-35) 30 pg (25-35) Mean Corpuscular Hemoglobin Concent 33 g/dL (31-37) 33 g/dL (31-37) Red Cell Distribution Width 14.3 % (11.5-14.5) 13.9 % (11.5-14.5) Platelet Count 356 x10^3/uL (140-400) 261 x10^3/uL (140-400) Neutrophils (%) (Auto) 59 % (31-73) 67 % (31-73) Lymphocytes (%) (Auto) 33 % (24-48) 26 % (24-48) Monocytes (%) (Auto) 7 % (0-9) 6 % (0-9) Eosinophils (%) (Auto) 0 % (0-3) 1 % (0-3) Basophils (%) (Auto) 0 % (0-3) 0 % (0-3) Neutrophils # (Auto) 9.4 x10^3uL (1.8-7.7) 7.2 x10^3uL (1.8-7.7) Lymphocytes # (Auto) 5.2 x10^3/uL (1.0-4.8) 2.8 x10^3/uL (1.0-4.8) Monocytes # (Auto) 1.2 x10^3/uL (0.0-1.1) 0.7 x10^3/uL (0.0-1.1) Eosinophils # (Auto) 0.0 x10^3/uL (0.0-0.7) 0.1 x10^3/uL (0.0-0.7) Basophils # (Auto) 0.1 x10^3/uL (0.0-0.2) 0.0 x10^3/uL (0.0-0.2) Sodium Level 143 mmol/L (136-145) 144 mmol/L (136-145) Potassium Level 3.9 mmol/L (3.5-5.1) 3.9 mmol/L (3.5-5.1) Chloride Level 105 mmol/L (98-107) 107 mmol/L (98-107) Carbon Dioxide Level 32 mmol/L (21-32) 33 mmol/L (21-32) Anion Gap 6 (6-14) 4 (6-14) Blood Urea Nitrogen 19 mg/dL (7-20) 7 mg/dL (7-20) Creatinine 0.7 mg/dL (0.6-1.0) 0.6 mg/dL (0.6-1.0) Estimated GFR (Cockcroft-Gault) 90.1 107.6 Glucose Level 91 mg/dL (70-99) 85 mg/dL (70-99) Calcium Level 8.6 mg/dL (8.5-10.1) 8.7 mg/dL (8.5-10.1) Urine Collection Type U cath Urine Color Yellow Urine Clarity Clear Urine pH 6.5 Urine Specific [place] 1.020 Urine Protein Negative mg/dL (NEG-TRACE) Urine Glucose (UA) Negative mg/dL (NEG) Urine Ketones (Stick) Negative mg/dL (NEG) Urine Blood Negative (NEG) Urine Nitrite Negative (NEG) Urine Bilirubin Negative (NEG) Urine Urobilinogen Dipstick 0.2 mg/dL (0.2 mg/dL) Urine Leukocyte Esterase Moderate (NEG) Urine RBC 3-5 /HPF (0-2) Urine WBC >40 /HPF (0-4) Urine Squamous Epithelial Cells Few /LPF Urine Bacteria Few /HPF (0-FEW) Laboratory Tests Test 07/15/16 05:20 White Blood Count 10.8 x10^3/uL (4.0-11.0) Red Blood Count 4.09 x10^6/uL (3.50-5.40) Hemoglobin 12.2 g/dL (12.0-15.5) Hematocrit 36.8 % (36.0-47.0) Mean Corpuscular Volume 90 fL (79-100) Mean Corpuscular Hemoglobin 30 pg (25-35) Mean Corpuscular Hemoglobin Concent 33 g/dL (31-37) Red Cell Distribution Width 13.9 % (11.5-14.5) Platelet Count 261 x10^3/uL (140-400) Neutrophils (%) (Auto) 67 % (31-73) Lymphocytes (%) (Auto) 26 % (24-48) Monocytes (%) (Auto) 6 % (0-9) Eosinophils (%) (Auto) 1 % (0-3) Basophils (%) (Auto) 0 % (0-3) Neutrophils # (Auto) 7.2 x10^3uL (1.8-7.7) Lymphocytes # (Auto) 2.8 x10^3/uL (1.0-4.8) Monocytes # (Auto) 0.7 x10^3/uL (0.0-1.1) Eosinophils # (Auto) 0.1 x10^3/uL (0.0-0.7) Basophils # (Auto) 0.0 x10^3/uL (0.0-0.2) Sodium Level 144 mmol/L (136-145) Potassium Level 3.9 mmol/L (3.5-5.1) Chloride Level 107 mmol/L (98-107) Carbon Dioxide Level 33 mmol/L (21-32) Anion Gap 4 (6-14) Blood Urea Nitrogen 7 mg/dL (7-20) Creatinine 0.6 mg/dL (0.6-1.0) Estimated GFR (Cockcroft-Gault) 107.6 Glucose Level 85 mg/dL (70-99) Calcium Level 8.7 mg/dL (8.5-10.1) Microbiology 07/14/16 Urine Culture - Preliminary, Resulted 07/14/16 Urine Culture Result 1 (ALEJANDRO) - Preliminary, Resulted Medications Current Medications Ketorolac Tromethamine (Toradol) 30 mg 1X ONCE IV Last administered on 00:10; Start 07/14/16 at 00:00; Stop 07/14/16 at 00:01; Status DC Morphine Sulfate 4 mg 1X ONCE IV Last administered on 07/14/16 00:10; Start at 00:00; Stop 07/14/16 at 00:01; Status DC Ondansetron HCl (Zofran) 4 mg 1X ONCE IV Last administered on 07/14/16 00:09; Start 07/14/16 at 00:00; Stop 07/14/16 at 00:01; Status DC Sodium Chloride 1,000 ml @ 1,000 mls/hr 1X ONCE IV Last administered on 00:10; Start 07/14/16 at 00:00; Stop 07/14/16 at 00:59; Status DC Hydromorphone HCl (Dilaudid) 1 mg 1X ONCE IV Last administered on 07/14/16 01: 20; Start 07/14/16 at 01:00; Stop 07/14/16 at 01:01; Status DC Ceftriaxone Sodium 50 ml @ 100 mls/hr 1X ONCE IV ; Start 07/14/16 at 01:00; Stop 07/14/16 at 01:29; Status UNV Levofloxacin/ Dextrose 150 ml @ 100 mls/hr 1X ONCE IV Last administered on 01:19; Start 07/14/16 at 01:30; Stop 07/14/16 at 02:59; Status DC Ceftriaxone Sodium 0 ml @ As Directed STK-MED ONCE IV ; Start 07/14/16 at 01:05; Stop 07/14/16 at 01:06; Status DC Ondansetron HCl (Zofran) 4 mg 1X ONCE IV Last administered on 07/14/16 01:20; Start 07/14/16 at 01:30; Stop 07/14/16 at 01:31; Status DC Diphenhydramine HCl (Benadryl) 50 mg 1X ONCE IVP ; Start 07/14/16 at 01:30; Stop 07/14/16 at 01:31; Status DC Ondansetron HCl (Zofran) 4 mg PRN Q8HRS PRN IV NAUSEA/VOMITING Last administered on 07/14/16 08:54; Start 07/14/16 at 03:00; Stop 07/14/16 at 15:21; Status DC Sodium Chloride 1,000 ml @ 125 mls/hr Q8H IV Last administered on 07/14/16 17: 44; Start 07/14/16 at 03:00; Stop 07/15/16 at 02:59; Status DC Acetaminophen (Tylenol) 650 mg PRN Q4HRS PRN PO FEVER; Start 07/14/16 at 02:45; Stop 07/15/16 at 02:44; Status DC Hydromorphone HCl (Dilaudid) 1 mg 1X ONCE IV Last administered on 07/14/16 03: 27; Start 07/14/16 at 03:00; Stop 07/14/16 at 03:01; Status DC Hydromorphone HCl (Dilaudid) 1 mg PRN Q2HR PRN IV PAIN Last administered on 07/15 16:39; Start 07/14/16 at 03:00 Ketorolac Tromethamine (Toradol) 15 mg PRN Q6HRS PRN IV PAIN Last administered on 07/15/16 10:20; Start 07/14/16 at 13:00; Stop 07/19/16 at 12:59 Prochlorperazine Edisylate (Compazine) 10 mg PRN Q6HRS PRN IV NAUSEA/VOMITING; Start 07/14/16 at 13:00; Stop 07/14/16 at 17:42; Status DC Tamsulosin HCl (Flomax) 0.4 mg DAILY PO Last administered on 07/15/16 08:34; Start 07/14/16 at 14:30 EZETIMIBE (Zetia) 10 mg DAILY PO Last administered on 07/15/16 08:34; Start 07/14/16 at 15:00 Levothyroxine Sodium (Synthroid) 100 mcg DAILY07 PO Last administered on 05:01; Start 07/14/16 at 15:00 Metoprolol Succinate (Toprol Xl) 25 mg DAILY PO Last administered on 07/15/16 08:34; Start 07/14/16 at 15:00 Atorvastatin Calcium (Lipitor) 10 mg QHS PO Last administered on 07/14/16 19:54 ; Start 07/14/16 at 21:00 Ondansetron HCl (Zofran) 4 mg PRN Q6HRS PRN IV NAUSEA/VOMITING Last administered on 07/15/16 10:20; Start 07/14/16 at 15:20 Lactobacillus Acidophilus (Bacid, Colleen-Bid) 1 tab TIDWMEALS PO Last administered on 07/15/16 13:13; Start 07/15/16 at 12:00 Sodium Chloride 1,000 ml @ 150 mls/hr Q6H40M IV Last administered on 07/15/16 16:39; Start 07/15/16 at 16:00 Active Scripts Active Zofran (Ondansetron Hcl) 4 Mg Tablet 4 Mg PO BID PRN Percocet 5-325 Mg Tablet (Oxycodone/Acetaminophen) 1 Each Tablet 1 Tab PO PRN Q6HRS PRN Prednisone 20 Mg Tablet 20 Mg PO DAILY Toprol Xl (Metoprolol Succinate) 25 Mg Tab.er.24h 25 Mg PO DAILY Synthroid (Levothyroxine Sodium) 50 Mcg Tablet 100 Mcg PO DAILY07 Reported Albuterol Sulfate Conc Neb Soln (Albuterol Sulfate) 2.5 Mg/0.5 Ml Vial.neb 1 Vial NEB Q6HRS Ventolin Hfa Inhaler (Albuterol Sulfate) 18 Gm Hfa.aer.ad 2 Puff INH QID Symbicort 160-4.5 Mcg Inhaler (Budesonide/Formoterol Fumarate) 10.2 Gm Hfa.aer.ad 2 Puff IH BID Pravastatin Sodium 40 Mg Tablet 40 Mg PO DAILY Zetia (Ezetimibe) 10 Mg Tablet 10 Mg PO DAILY Vitals/I & O Vital Sign - Last 24 Hours 07/14/16 07/14/16 07/14/16 07/14/16 19:00 19:10 19:55 22:24 Temp 97.9 97.9 Pulse 99 Resp 18 18 18 B/P (MAP) 128/78 (95) Pulse Ox 98 O2 Delivery Room Air Room Air Room Air Room Air 07/14/16 07/15/16 07/15/16 07/15/16 23:00 00:41 02:46 03:00 Temp 99.0 98.1 99.0 98.1 Pulse 106 94 Resp 18 20 20 18 B/P (MAP) 120/65 (83) 125/76 (92) Pulse Ox 96 97 O2 Delivery Room Air Nasal Cannula Room Air Room Air 07/15/16 07/15/16 07/15/16 07/15/16 05:02 05:32 07:00 08:34 Temp 98.1 98.1 Pulse 84 84 Resp 20 20 18 B/P (MAP) 124/74 (91) 124/74 Pulse Ox 98 O2 Delivery Room Air Room Air 07/15/16 07/15/16 07/15/16 07/15/16 08:35 10:47 11:46 14:19 Temp 98.1 98.1 Pulse 81 Resp 18 B/P (MAP) 112/77 (89) Pulse Ox 96 O2 Delivery Room Air Room Air Room Air Room Air 07/15/16 07/15/16 07/15/16 14:53 15:11 16:39 Temp 98.1 98.1 Pulse 91 Resp 18 B/P (MAP) 123/79 (94) Pulse Ox 96 O2 Delivery Room Air Room Air Room Air Intake and Output 07/14/16 07/14/16 07/15/16 15:00 23:00 07:00 Intake Total 100 ml Balance 100 ml HAWA DAVID MD Jul 15, 2016 17:40
[2016-07-15] MEDS: VANCOMYCIN 250 MG/5 ML ORAL SOLUTION. PO SCH ×2 (18:35→20:45)
[2016-07-15 19:20] VITALS: BP 133/79
[2016-07-15] MEDS: ATORVASTATIN CALCIUM 10 MG TABLET. PO SCH (20:45)
[2016-07-15 23:13] VITALS: BP 127/81
[2016-07-16] VITALS (7 sets, daily range): BP systolic 105–164; BP diastolic 50–91
[2016-07-16] MEDS: IV NORMAL SALINE 1000ML BAG 1,000 ML IV SCH ×3 (00:14→13:08)
[2016-07-16] MEDS: HYDROmorphone 2 MG/ML VIAL IV PRN ×10 (01:14→23:39)
[2016-07-16] MEDS: LEVOTHYROXINE 100 MCG TABLET PO SCH (06:05)
[2016-07-16] MEDS: ONDANSETRON PF 4 MG/2 ML VIAL. IV PRN ×4 (06:06→23:38)
[2016-07-16] MEDS: EZETIMIBE 10 MG TABLET. PO SCH (08:30)
[2016-07-16] MEDS: VANCOMYCIN 250 MG/5 ML ORAL SOLUTION. PO SCH (08:30)
[2016-07-16] MEDS: LACTOBACILLUS ACIDOPH & BULGAR 1 TABLET. PO SCH ×3 (08:30→16:23)
[2016-07-16] MEDS: TAMSULOSIN 0.4 MG CAP.ER.24H. PO SCH (08:31)
[2016-07-16] MEDS: METOPROLOL SUCC 24HR ER 25 MG TAB.ER.24H. PO SCH (08:31)
--- NOTE | 2016-07-16 09:01 | PDOC ---
Infectious Disease Note Vital Sign Vital Signs Vital Signs Date Time Temp Pulse Resp B/P (MAP) Pulse Ox O2 Delivery O2 Flow Rate FiO2 07/16/16 08:31 83 105/50 07/16/16 08:30 Room Air 07/16/16 07:00 98.1 18 98 98.1 07/15/16 20:46 96.0 Objective Assessment Recurrent C diff Ureteral stone Kidney stone UTI ? culture neg so far Leukocytosis and fever Plan Plan of Care cont po vanc bid ok, chronic suppressive for the time being pt may need antibiotics with stent placement and once stent and stone removed in 3-4 wks then will see her in office to talk about fecal transplant. CHE CHILDRESS MD Jul 16, 2016 09:01
--- NOTE | 2016-07-16 10:10 | PDOC ---
Provider Note Provider Note patient seen have been following her for a right cervical radiculopathy but no compressive lesion seen in her cervical spine on MRI EMG/ NCS of right upper ext was normal unable to have myelogram because of severe contrast allergy MRA of neck was negative will ask neurology to see Ordered brachial MRI full consult to follow TAMIE HUITRON MD Jul 16, 2016 10:10
--- NOTE | 2016-07-16 11:20 | PDOC ---
Subjective: Subjective: In restroom when I stopped by - through door says "doing terrible!" Objective: Objective: D/w Dr. Rio Palma. 10 rounds of antibiotics last year. C Diff neg this time, but likely to still be a problem w/ ongoing antibiotic use. Started back on vancomycin w/ plans to discuss fecal transplant as outpatient after kidney issues resolved. Per RN - going for KUB per Dr. Oates later. Vital Signs: Vital Signs Date Time Temp Pulse Resp B/P (MAP) Pulse Ox O2 Delivery O2 Flow Rate FiO2 07/16/16 11:00 99.7 93 18 142/91 (108) 93 Room Air 99.7 07/16/16 10:54 96.0 Imaging: Neck MRA IMPRESSION: Unremarkable MR angiogram of the neck. No evidence of hemodynamically significant stenosis. PE: no exam, talked while in restroom A/P: Recurrent C Diff, n/v, bloating -neg this admission, ID following, back on oral vanco Right flank/abd pain -urology following, plans for KUB per Dr. Oates's note -- I don't see that KUB is ordered - will check w/ RN. MICHELLE LUBIN Jul 16, 2016 11:20
[2016-07-16] MEDS ORDERED: HYDROmorphone 2 MG/ML VIAL IV PRN (12:45)
--- NOTE | 2016-07-16 12:49 | PDOC ---
PROGRESS NOTES Chief Complaint Chief Complaint Ureterolithiasis ASSESSMENT AND PLAN: 1. Renal colic R: ongoing. 3.7 mm stone in distal ureter. plan for cystoscopy in AM w/Dr Oates 2. Pain control: dilaudid PRN with liberalizing dose to 1-2 mg 3. UTI: culture with low count mixed urogenital shekhar. no Abx indicated. 4. Diarrhea: hx of recurrent C.diff, but PCR negative! appreciate Dr Palma's input: keep prophylactic PO vanco for now 5. HTN, HLD: well controlled. continue home meds 6. Cervical radiculopathy: MRA neg, Dr Belcher following. further studies ordered as well as neurology consult History of Present Illness History of Present Illness in tears, still in pain. wants scope done GARRETT. Vitals Vitals Vital Signs Date Time Temp Pulse Resp B/P (MAP) Pulse Ox O2 Delivery O2 Flow Rate FiO2 07/16/16 11:26 Room Air 07/16/16 11:00 99.7 93 18 142/91 (108) 93 99.7 07/16/16 10:54 96.0 Physical Exam General: Alert, Oriented X3, Cooperative, No acute distress Heart: Regular rate Lungs: Clear, Other Abdomen: Normal bowel sounds, Other Extremities: No edema Skin: No rashes HAWA DAVID MD Jul 16, 2016 12:49
--- NOTE | 2016-07-16 12:53 | PDOC2 ---
NEUROLOGY CONSULT Date of Admission Date of Admission DATE: 07/16/16 TIME: 12:42 Reason for Consult Reason for Consult: Right cervical radiculopathy Referring Physician Referring Physician: Dr. Ye Young PCP: Ms. Feliz Source Source: Chart review, Patient History of Present Illness History of Present Illness The patient is a 46-year-old right-handed female admitted for renal colic who has been having some neck problems. She had a cervical fracture and underwent C4 -5 hardware installation several years ago, with Dr. Goddard. About 4 months ago she started noticing next stiffness and pain, pain and numbness in the right shoulder and arm to the point where she has trouble lifting the right arm. She saw a pain physician who gave her an epidural injection without relief. She then saw Dr. Marquez for an EMG, which was negative. She has been seeing Dr. Belcher who has ordered imaging of the cervical spine as reviewed below. The patient has not figured out any inciting or mitigating features. She describes constant achy pain. There has been no intervening significant injury. 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), pancreatitis) Heme/Onc: B12 deficiency, Cancer ( thyroid) Musculoskeletal: low back pain Rheumatologic: Rheumatoid arthritis Renal/: Other ( kidney stones) Past Surgical History Past Surgical History: Cholecystectomy, Hysterectomy, Other ( lithotripsy, left tibia, thyroidectomy) Family History Family History: Cancer Social History Social History , no tobacco or alcohol Current Medications Current Medications Current Medications Ketorolac Tromethamine (Toradol) 30 mg 1X ONCE IV Last administered on 00:10; Start 07/14/16 at 00:00; Stop 07/14/16 at 00:01; Status DC Morphine Sulfate 4 mg 1X ONCE IV Last administered on 07/14/16 00:10; Start at 00:00; Stop 07/14/16 at 00:01; Status DC Ondansetron HCl (Zofran) 4 mg 1X ONCE IV Last administered on 07/14/16 00:09; Start 07/14/16 at 00:00; Stop 07/14/16 at 00:01; Status DC Sodium Chloride 1,000 ml @ 1,000 mls/hr 1X ONCE IV Last administered on 00:10; Start 07/14/16 at 00:00; Stop 07/14/16 at 00:59; Status DC Hydromorphone HCl (Dilaudid) 1 mg 1X ONCE IV Last administered on 07/14/16 01: 20; Start 07/14/16 at 01:00; Stop 07/14/16 at 01:01; Status DC Ceftriaxone Sodium 50 ml @ 100 mls/hr 1X ONCE IV ; Start 07/14/16 at 01:00; Stop 07/14/16 at 01:29; Status UNV Levofloxacin/ Dextrose 150 ml @ 100 mls/hr 1X ONCE IV Last administered on 01:19; Start 07/14/16 at 01:30; Stop 07/14/16 at 02:59; Status DC Ceftriaxone Sodium 0 ml @ As Directed STK-MED ONCE IV ; Start 07/14/16 at 01:05; Stop 07/14/16 at 01:06; Status DC Ondansetron HCl (Zofran) 4 mg 1X ONCE IV Last administered on 07/14/16 01:20; Start 07/14/16 at 01:30; Stop 07/14/16 at 01:31; Status DC Diphenhydramine HCl (Benadryl) 50 mg 1X ONCE IVP ; Start 07/14/16 at 01:30; Stop 07/14/16 at 01:31; Status DC Ondansetron HCl (Zofran) 4 mg PRN Q8HRS PRN IV NAUSEA/VOMITING Last administered on 07/14/16 08:54; Start 07/14/16 at 03:00; Stop 07/14/16 at 15:21; Status DC Sodium Chloride 1,000 ml @ 125 mls/hr Q8H IV Last administered on 07/14/16 17: 44; Start 07/14/16 at 03:00; Stop 07/15/16 at 02:59; Status DC Acetaminophen (Tylenol) 650 mg PRN Q4HRS PRN PO FEVER; Start 07/14/16 at 02:45; Stop 07/15/16 at 02:44; Status DC Hydromorphone HCl (Dilaudid) 1 mg 1X ONCE IV Last administered on 07/14/16 03: 27; Start 07/14/16 at 03:00; Stop 07/14/16 at 03:01; Status DC Hydromorphone HCl (Dilaudid) 1 mg PRN Q2HR PRN IV PAIN Last administered on 07/16 10:54; Start 07/14/16 at 03:00 Ketorolac Tromethamine (Toradol) 15 mg PRN Q6HRS PRN IV PAIN Last administered on 07/15/16 10:20; Start 07/14/16 at 13:00; Stop 07/19/16 at 12:59 Prochlorperazine Edisylate (Compazine) 10 mg PRN Q6HRS PRN IV NAUSEA/VOMITING; Start 07/14/16 at 13:00; Stop 07/14/16 at 17:42; Status DC Tamsulosin HCl (Flomax) 0.4 mg DAILY PO Last administered on 07/16/16 08:31; Start 07/14/16 at 14:30 EZETIMIBE (Zetia) 10 mg DAILY PO Last administered on 07/16/16 08:30; Start 07/14/16 at 15:00 Levothyroxine Sodium (Synthroid) 100 mcg DAILY07 PO Last administered on 06:05; Start 07/14/16 at 15:00 Metoprolol Succinate (Toprol Xl) 25 mg DAILY PO Last administered on 07/15/16 08:34; Start 07/14/16 at 15:00 Atorvastatin Calcium (Lipitor) 10 mg QHS PO Last administered on 07/15/16 20:45 ; Start 07/14/16 at 21:00 Ondansetron HCl (Zofran) 4 mg PRN Q6HRS PRN IV NAUSEA/VOMITING Last administered on 07/16/16 10:55; Start 07/14/16 at 15:20 Lactobacillus Acidophilus (Bacid, Colleen-Bid) 1 tab TIDWMEALS PO Last administered on 07/16/16 08:30; Start 07/15/16 at 12:00 Sodium Chloride 1,000 ml @ 150 mls/hr Q6H40M IV Last administered on 07/16/16 06:05; Start 07/15/16 at 16:00 Vancomycin HCl 250 mg [id number] PO Last administered on 07/16/16 08:30; Start 07/15/16 at 18:00; Stop 07/16/16 at 09:08; Status DC Vancomycin HCl 250 mg BID PO ; Start 07/16/16 at 21:00 Ondansetron HCl (Zofran) 4 mg PRN Q6HRS PRN IV NAUSEA/VOMITING; Start 07/17/16 at 07:00; Stop 07/18/16 at 06:59; Status UNV Fentanyl Citrate (Fentanyl 2ml Vial) 25 mcg PRN Q5MIN PRN IV MILD PAIN; Start 07/17/16 at 07:00; Stop 07/18/16 at 06:59; Status UNV Fentanyl Citrate (Fentanyl 2ml Vial) 50 mcg PRN Q5MIN PRN IV MODERATE PAIN; Start 07/17/16 at 07:00; Stop 07/18/16 at 06:59; Status UNV Morphine Sulfate 1 mg PRN Q10MIN PRN IV SEVERE PAIN; Start 07/17/16 at 07:00; Stop 07/18/16 at 06:59; Status UNV Ringer's Solution 1,000 ml @ 0 mls/hr Q0M IV ; Start 07/17/16 at 07:00; Stop 07/17/16 at 18:59; Status UNV Lidocaine HCl 2 ml PRN 1X PRN ID PRIOR TO IV START; Start 07/17/16 at 07:00; Stop 07/18/16 at 06:59; Status UNV Hydromorphone HCl (Dilaudid) 0.5 mg PRN Q10MIN PRN IV SEV PAIN, Second choice; Start 07/17/16 at 07:00; Stop 07/18/16 at 06:59; Status UNV Prochlorperazine Edisylate (Compazine) 5 mg PACU PRN PRN IV NAUSEA, MRX1; Start 07/17/16 at 07:00; Stop 07/18/16 at 06:59; Status UNV Active Scripts Active Zofran (Ondansetron Hcl) 4 Mg Tablet 4 Mg PO BID PRN Percocet 5-325 Mg Tablet (Oxycodone/Acetaminophen) 1 Each Tablet 1 Tab PO PRN Q6HRS PRN Prednisone 20 Mg Tablet 20 Mg PO DAILY Toprol Xl (Metoprolol Succinate) 25 Mg Tab.er.24h 25 Mg PO DAILY Synthroid (Levothyroxine Sodium) 50 Mcg Tablet 100 Mcg PO DAILY07 Reported Albuterol Sulfate Conc Neb Soln (Albuterol Sulfate) 2.5 Mg/0.5 Ml Vial.neb 1 Vial NEB Q6HRS Ventolin Hfa Inhaler (Albuterol Sulfate) 18 Gm Hfa.aer.ad 2 Puff INH QID Symbicort 160-4.5 Mcg Inhaler (Budesonide/Formoterol Fumarate) 10.2 Gm Hfa.aer.ad 2 Puff IH BID Pravastatin Sodium 40 Mg Tablet 40 Mg PO DAILY Zetia (Ezetimibe) 10 Mg Tablet 10 Mg PO DAILY Allergies Allergies: Coded Allergies: Iodinated Contrast Media - Oral and (Verified Allergy, Severe, Anaphylaxis , 05/26/15) cefdinir (Verified Allergy, Severe, anaphylaxis, 03/19/16) ceftriaxone (Verified Allergy, Severe, anaphylaxis, 03/19/16) shellfish derived (Verified Allergy, Severe, 05/26/15) cefazolin (Verified Allergy, Intermediate, 05/26/15) ciprofloxacin (Verified Allergy, Intermediate, RASH ONLY, 07/14/16) codeine (Verified Allergy, Intermediate, MORPHINE OK, HYDROCODONE AT HOME , 03/19/16) erythromycin base (Verified Allergy, Intermediate, 12/01/14) latex (Verified Allergy, Intermediate, Rash, 05/26/15) strawberry (Verified Allergy, Unknown, 03/19/16) ROS Review of System Negative for fevers, chills, weight loss, shortness of breath, chest pain, indigestion, hematochezia, melena, dysuria. Full 14-point review systems is negative. Physical Exam Physical Examination PHYSICAL EXAMINATION: Vital signs: see above. General appearance is normal and in no acute distress. HEENT: Normocephalic and nontraumatic. Eyes, nose, ears, and throat are unremarkable. Neck is supple. No lymphadenopathy. No bruits are heard over the carotid artery. No crepitus. Extremities: painful elevation of the right shoulder NEUROLOGICAL EXAMINATION: Mental Status Examination: Alert. Oriented to time, place, and person. Answers questions and follows commends. Pupils are equal round and reactive to light and accommodation. Extraocular movements are intact. Visual field exam shows no defect on the direct confrontation. No motor or sensory deficits on the facial exam. Uvula in the midline and the soft palate elevated symmetrically. No deviation of the tongue to any direction. Gross hearing is normal. Shoulder shrug normal. Muscle tone is normal. Muscle strength is 5, with splitting of the right shoulder. Deep tendon reflexes are 2+ all around. Plantar reflex is with flexion response bilaterally. Tqapgi-[id number]-[id number] test performance is accurate. Tandem walk test is accurate. Alternative movements are accurate. Romberg test is negative. Gait is normal. Sensory exam shows pinprick loss in the entire right shoulder extending down to the elbow. No cerebellar signs are elicited. Vitals VITALS Vital Signs Date Time Temp Pulse Resp B/P (MAP) Pulse Ox O2 Delivery O2 Flow Rate FiO2 07/16/16 11:26 Room Air 07/16/16 11:00 99.7 93 18 142/91 (108) 93 99.7 07/16/16 10:54 96.0 Labs Labs Laboratory Tests Test 07/15/16 05:20 07/15/16 07:55 White Blood Count 10.8 x10^3/uL (4.0-11.0) Red Blood Count 4.09 x10^6/uL (3.50-5.40) Hemoglobin 12.2 g/dL (12.0-15.5) Hematocrit 36.8 % (36.0-47.0) Mean Corpuscular Volume 90 fL (79-100) Mean Corpuscular Hemoglobin 30 pg (25-35) Mean Corpuscular Hemoglobin Concent 33 g/dL (31-37) Red Cell Distribution Width 13.9 % (11.5-14.5) Platelet Count 261 x10^3/uL (140-400) Neutrophils (%) (Auto) 67 % (31-73) Lymphocytes (%) (Auto) 26 % (24-48) Monocytes (%) (Auto) 6 % (0-9) Eosinophils (%) (Auto) 1 % (0-3) Basophils (%) (Auto) 0 % (0-3) Neutrophils # (Auto) 7.2 x10^3uL (1.8-7.7) Lymphocytes # (Auto) 2.8 x10^3/uL (1.0-4.8) Monocytes # (Auto) 0.7 x10^3/uL (0.0-1.1) Eosinophils # (Auto) 0.1 x10^3/uL (0.0-0.7) Basophils # (Auto) 0.0 x10^3/uL (0.0-0.2) Sodium Level 144 mmol/L (136-145) Potassium Level 3.9 mmol/L (3.5-5.1) Chloride Level 107 mmol/L (98-107) Carbon Dioxide Level 33 mmol/L (21-32) Anion Gap 4 (6-14) Blood Urea Nitrogen 7 mg/dL (7-20) Creatinine 0.6 mg/dL (0.6-1.0) Estimated GFR (Cockcroft-Gault) 107.6 Glucose Level 85 mg/dL (70-99) Calcium Level 8.7 mg/dL (8.5-10.1) Clostridium difficile Toxin (PCR) Negative (Negative) Images Images Neck MRA, 07/15/16: MR angiogram neck: Technique: 2-D [id number] MR angiogram of the neck was obtained. Additional 3-D [id number] MR angiogram through the region of the carotid bifurcations was also performed. Additional maximum intensity pixel projections were also obtained and presented in rotating format. Additional 3-D analysis was also performed. FINDINGS: No hemodynamically significant stenosis is identified in any of the visualized vessels of the neck. There is no evidence of dissection. The carotid bifurcations are widely patent bilaterally. There is antegrade flow in both vertebral arteries. The origins of the great vessels are within normal limits. IMPRESSION: Unremarkable MR angiogram of the neck. No evidence of hemodynamically significant stenosis. Cervical MRI, 04/12/16: FINDINGS As seen previously, there has been anterior cervical fusion at C4-C5. Cervical vertebral body stature and AP alignment are maintained. Cervical cord caliber is within normal limits without convincing, reproducible signal abnormality on the various image sequences. There is no significant marrow edema, some artifact created by hardware. There is mild degenerative disc disease at C3-4 and C5-C6. C2-3: Spinal canal and neural foramina are adequate. C3-C4: There is again minimal bulge. There is posterior annular tear. Central canal is minimally narrowed to 8 millimeters. Neural foramina are adequate. C4-5: Spinal canal and neural foramina are adequate. C5-C6: There is some artifact created by hardware. There is minimal disc osteophyte complex relatively greater in the left lateral recess. Central canal is minimally narrowed to approximately 9 millimeters. Right neural foramen is adequate. There is left uncovertebral and facet degenerative change, moderate narrowing of the left neural foramen. C6-7: Spinal canal and neural foramina are adequate. C7-T1: Spinal canal and neural foramina are adequate. IMPRESSION 1. There again has been anterior cervical fusion C4-5. 2. There is mild spinal stenosis C3-4 and C5-C6. 3. There is moderate narrowing of the left C5-C6 neural foramen due to facet and uncovertebral degenerative change, right neural foramen adequate at this level. 4. There is mild degenerative disc disease and spondylosis at C5-C6, mild degenerative disc disease C3-4. Cervical CT, 04/11/16 FINDINGS There again has been anterior cervical fusion at C4-C5 with intact anterior metallic plate and screws. There is likely at least partial interbody fusion at this level. There is mild degenerative disc disease at C3-4 and C5-C6, some endplate irregularity of C5-C6. Atlantoaxial distance is within normal limits, mild associated degenerative change. There is adequate alignment of the lateral masses C1 relative to C2. Occipital condylar-C1 articulation is maintained. C2-3: Spinal canal and neural foramina are adequate. C3-C4: There is minimal posterior bulge better seen on MRI, overall mild spinal stenosis. Osseous neural foramina are adequate. C4-5: Osseous spinal canal and neural foramina are adequate. C5-C6: There is minimal disc osteophyte complex somewhat greater in the left lateral recess. There is again likely mild spinal stenosis. There is left uncovertebral degenerative change, mild facet degenerative change. There is moderate narrowing of the left neural foramen, right neural foramen adequate. C6-7: Osseous spinal canal and neural foramina are adequate C7-T1: Osseous spinal canal and neural foramina are adequate. IMPRESSION 1. There is intact anterior cervical fusion hardware C4-5, partial interbody fusion at this level. 2. There is mild degenerative disc disease at C3-4 and C5-C6, mild spondylosis. There is again suspected mild spinal stenosis at C5-C6 and C3-4. 3. There is moderate narrowing of the left C5-C6 neural foramen due to uncovertebral degenerative change. Assessment/Plan Assessment/Plan Impression: Right shoulder pain, perhaps musculoskeletal. The distribution of sensory loss is not anatomic but could be explained from referred pain from the shoulder or from a very extensive brachial plexus lesion. I find no evidence of cervical radiculopathy or myelopathy. Recommendations: Agree with MRI of the brachial plexus I added on MRI of the right shoulder Further recommendations depending on the above. She may benefit from more physical therapy, more pain-clinic procedures, addition of gabapentin, orthopedic referral, for instance. Thank you for letting me help with the patient's care. CICI LAO MD Jul 16, 2016 12:53
[2016-07-16] MEDS ORDERED: PHENYLEPH/MINERAL OIL/PETROLAT RECTAL OINTMENT 28GM TUBE. RC PRN (13:00)
--- NOTE | 2016-07-16 13:54 | RAD ---
Indication right ureteral stone. Single KUB was obtained. Note is made of the CT examination 2 days previously. the abdominal gas pattern is unremarkable. There are calcifications in the pelvis which are compatible with phleboliths.. One representing a distal ureteral calculus is not entirely excluded. It is conceivable that the small calculus on the CT examination is radiolucent.
[2016-07-16] MEDS: COLESTIPOL HCL 1 GM TABLET PO SCH ×2 (14:00→20:58)
[2016-07-16] MEDS ORDERED: GADOBUTROL 7.5 MMOL/7.5 ML VIAL IV ONE (15:45)
--- NOTE | 2016-07-16 16:24 | RAD ---
MR of right shoulder HISTORY: Shoulder pain. Unable to lift arm for 3 months. TECHNIQUE: Routine multiplanar sequences are obtained. FINDINGS: The acromioclavicular joint is intact. There is mild signal within the supraspinatus and infraspinatus tendons compatible with tendinosis. No measurable tear. Subscapularis tendon is intact. No significant subdeltoid bursal effusion. Thick cordlike middle glenohumeral ligament with a small anterosuperior labrum compatible with a [place] complex, a normal variant. Limited evaluation of the superior labrum due to motion degradation. There is mild signal within the superior labrum compatible degeneration or possibly a tear. Biceps tendon is intact. No bone lesion. No acute fracture. No acute soft tissue injury. IMPRESSION: 1. No evidence of rotator cuff tear. 2. Limited labral evaluation due to motion degradation, but small superior labral tear is possible. Electronically signed by: Vitaliy Mcclelland MD (07/16/2016 4:21 PM)
--- NOTE | 2016-07-16 16:32 | RAD ---
MR BRACHIAL PLEXUS HISTORY: no priors...PT C/O SHOULDER PAIN AND UNABLE TO LIFT ARM X 3MONTHS...UNABLE TO GET GOOD FAT SUPPRESS ON EXAM DO TO ALL METAL INTERFERENCE Technique: Coronal T1, axial T1, axial T2 coronal inversion recovery, coronal T2 fat saturation, and sagittal T1-weighted images were obtained. FINDINGS: There is some susceptibility artifact in region of the cervical spine from the presence of metallic fusion hardware. No regions of abnormal signal seen in the region of the brachial plexus. No muscle atrophy or abnormal muscle signal is seen. Visualized lung apices are clear. No mass lesion is identified. No abnormal bone marrow signal is seen. Visualized vascular structures are within normal limits. IMPRESSION: No abnormalities identified along the course of the brachial plexus. Electronically signed by: Andrea Delgado MD (07/16/2016 4:28 PM)
[2016-07-16] MEDS: ATORVASTATIN CALCIUM 10 MG TABLET. PO SCH (20:58)
[2016-07-16] MEDS ORDERED: VANCOMYCIN 250 MG/5 ML ORAL SOLUTION. PO SCH (21:00)
[2016-07-17] VITALS (9 sets, daily range): BP systolic 115–137; BP diastolic 68–98
--- NOTE | 2016-07-17 01:44 | CONS ---
DATE OF CONSULTATION: 07/16/2016 REQUESTING PHYSICIAN: Dr. Young. REASON FOR CONSULTATION: UTI, kidney stones and recurrent C. diff. HISTORY OF PRESENT ILLNESS: This is a 46-year-old female who is known to us from multiple prior encounters. 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 The patient had at least 10 rounds of antibiotics last year she says, two rounds or more this year. The patient evidently had outpatient C. diff positive in June, but for some reason now she had stopped the vancomycin. I do not know whether she was recommended or she did it her own and now she comes in with right-sided flank pain. She is found to have a ureteral stone, but she also has chronic bilateral kidney stones, mild obstruction, evidence for UTI or at least pyuria and the patient has had fever she says and leukocytosis when she came in. The patient is currently not on any antibiotics other than p.o. vancomycin has been started. Stool for C. diff done is negative. The patient, because of her ureteral stone, may need a cystoscopy and stenting. It may be planned. The patient is alert, awake, very comfortable. No nausea, vomiting or diarrhea. This right-sided flank pain but appears to have been improving. Denies any urinary symptoms. Denies any other complaints or problems. 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 She is known to have bilateral kidney stones. The patient also has rheumatoid arthritis, anxiety disorder, depression and hypothyroidism. The patient has thyroid cancer, status post radiation done. SOCIAL HISTORY: Negative for smoking, alcohol or drug use. ALLERGIES: LISTED ALLERGIC TO CIPRO, CEFAZOLIN, CEFDINIR, ERYTHROMYCIN. CURRENT MEDICATIONS: Reviewed. The patient is on p.o. vancomycin. ROS : as per HPI, rest neg. PHYSICAL EXAMINATION: GENERAL: Alert, oriented female, not in distress. Vitals are stable. VITAL SIGNS: The patient when she came in T-max was 99. HEENT: NAD. NECK: Supple, no JVP, no lymphadenopathy. LUNGS: Clear. HEART: S1, S2 regular. ABDOMEN: Benign. EXTREMITIES: No edema or cyanosis. SKIN: Unremarkable. NEUROLOGIC: Maybe mild right CVA tenderness. The patient is neurologically intact. LABORATORY DATA: White count on admission was 15.9. BUN and creatinine is negative. Urinalysis showed more than 40 wbc. Her C. diff was negative. Blood culture is old. Urine culture is negative. The patient had abdominal CT, which showed bilateral nonobstructing renal calculi, mild right hydronephrosis with 3.7 mm calculus in the distal right ureter. IMPRESSION: 1. History of recurrent Clostridium difficile. Right now Clostridium difficile is negative. 2. Ureteral stone with mild hydronephrosis. 3. Bilateral kidney stones. 4. Urinary tract infection/pyuria. Cultures are negative so far. 5. Leukocytosis and low-grade fever when she came in, which has improved. RECOMMENDATIONS: I would continue p.o. vancomycin and I would change to twice a day as a chronic suppressive especially when she is going to require some antibiotics as a part of procedure and most likely she is going to require a ureteral stent. I would continue p.o. vancomycin until the stent and stone is removed and then I can sit down within the office after that to discuss possible re-fecal transplant. Unfortunately, she is a poor candidate because of continued need for antibiotics and the benefit goes away for fecal transplant. This was in detail discussed with the patient. Thank you very much, Dr. Young for giving me the opportunity to participate in this patient's care. CHE CHILDRESS MD DR: RICKY/sarah JOB#: [id number] / [id number] [place]
[2016-07-17] MEDS: HYDROmorphone 2 MG/ML VIAL IV PRN ×7 (02:08→21:18)
[2016-07-17] MEDS: ONDANSETRON PF 4 MG/2 ML VIAL. IV PRN ×3 (04:53→21:18)
[2016-07-17] MEDS: IV NORMAL SALINE 1000ML BAG 1,000 ML IV SCH (06:02)
[2016-07-17 06:21] LABS: BASO % 0 % (0-3); EOS % 3 % (0-3); HEMATOCRIT 38.8 % (36.0-47.0); HEMOGLOBIN 12.8 g/dL (12.0-15.5); LYMPH # 3.1 x10^3/uL (1.0-4.8); LYMPH % 26 % (24-48); MEAN CORPUSCULAR HEMOGLOBIN 30 pg (25-35); MEAN CORPUSCULAR HGB CONC 33 g/dL (31-37); MEAN CORPUSCULAR VOLUME 91 fL (79-100); MONO % 6 % (0-9); NEUT % 65 % (31-73); PLATELET COUNT 285 x10^3/uL (140-400); RED BLOOD COUNT 4.27 x10^6/uL (3.50-5.40); RED CELL DISTRIBUTION WIDTH 14.1 % (11.5-14.5); WHITE BLOOD COUNT 11.8 x10^3/uL (4.0-11.0)
[2016-07-17] MEDS: LEVOTHYROXINE 100 MCG TABLET PO SCH ×2 (06:21→07:12)
[2016-07-17 06:47] LABS: ALBUMIN 3.7 g/dL (3.4-5.0); ALBUMIN/GLOBULIN RATIO 1.2 (1.0-1.7); CREATININE 0.7 mg/dL (0.6-1.0); GFR 90.1; POTASSIUM 4.1 mmol/L (3.5-5.1); TOTAL BILIRUBIN 0.5 mg/dL (0.2-1.0); TOTAL PROTEIN 6.7 g/dL (6.4-8.2)
[2016-07-17] MEDS ORDERED: IV RINGERS,LACTATED 1000ML 1,000 ML IV SCH (07:00)
[2016-07-17] MEDS ORDERED: PROCHLORPERAZINE 10 MG/2 ML VIAL. IV PRN (07:00)
[2016-07-17] MEDS ORDERED: fentaNYL PF VIAL 100 MCG/2 ML VIAL IV PRN ×2 (07:00)
[2016-07-17] MEDS ORDERED: LIDOCAINE 1% 1 ML SYRINGE. ID PRN (07:00)
[2016-07-17] MEDS ORDERED: ONDANSETRON PF 4 MG/2 ML VIAL. IV PRN (07:00)
[2016-07-17] MEDS ORDERED: HYDROmorphone 2 MG/ML VIAL IV PRN (07:00)
[2016-07-17] MEDS ORDERED: IOHEXOL 300 MG/ML 50 ML VIAL. ONE (07:05)
[2016-07-17] MEDS: LACTOBACILLUS ACIDOPH & BULGAR 1 TABLET. PO SCH ×3 (08:00→17:00)
--- NOTE | 2016-07-17 08:05 | PDOC ---
Infectious Disease Note Subjective Subjective pt feeling better, cysto planned for today ROS ROS GEN: Denies fevers, chills, sweats HEENT: Denies blurred vision, sore throat CV: Denies chest pain RESP: Denies shortness of air, cough GI: Denies n/v/d NEURO: Denies confusion, dizziness MSK: Denies weakness, joint pain/swelling Vital Sign Vital Signs Vital Signs Date Time Temp Pulse Resp B/P (MAP) Pulse Ox O2 Delivery O2 Flow Rate FiO2 07/17/16 07:11 18 97 Room Air 07/17/16 03:13 98.7 93 133/81 (98) 98.7 07/16/16 16:17 96.0 Physical Exam PHYSICAL EXAM GENERAL: NAD, Alert HEENT: PERRL, OC/OP NECK: Supple, no JVD, no LN LUNGS: Clear HEART: S1S2, no gallop, no murmur ABD: Soft, NT, no organomegaly, no rebound EXT: No edema, no cyanosis COLOR CHECKER: Alert, oriented x 3, no focal neurologic deficit SKIN: No rash IV: ok Labs Lab Laboratory Tests Test 07/16/16 08:30 07/17/16 05:50 Clostridium difficile Toxin (PCR) Negative (Negative) White Blood Count 11.8 x10^3/uL (4.0-11.0) Red Blood Count 4.27 x10^6/uL (3.50-5.40) Hemoglobin 12.8 g/dL (12.0-15.5) Hematocrit 38.8 % (36.0-47.0) Mean Corpuscular Volume 91 fL (79-100) Mean Corpuscular Hemoglobin 30 pg (25-35) Mean Corpuscular Hemoglobin Concent 33 g/dL (31-37) Red Cell Distribution Width 14.1 % (11.5-14.5) Platelet Count 285 x10^3/uL (140-400) Neutrophils (%) (Auto) 65 % (31-73) Lymphocytes (%) (Auto) 26 % (24-48) Monocytes (%) (Auto) 6 % (0-9) Eosinophils (%) (Auto) 3 % (0-3) Basophils (%) (Auto) 0 % (0-3) Neutrophils # (Auto) 7.7 x10^3uL (1.8-7.7) Lymphocytes # (Auto) 3.1 x10^3/uL (1.0-4.8) Monocytes # (Auto) 0.7 x10^3/uL (0.0-1.1) Eosinophils # (Auto) 0.3 x10^3/uL (0.0-0.7) Basophils # (Auto) 0.0 x10^3/uL (0.0-0.2) Sodium Level 142 mmol/L (136-145) Potassium Level 4.1 mmol/L (3.5-5.1) Chloride Level 101 mmol/L (98-107) Carbon Dioxide Level 33 mmol/L (21-32) Anion Gap 8 (6-14) Blood Urea Nitrogen 5 mg/dL (7-20) Creatinine 0.7 mg/dL (0.6-1.0) Estimated GFR (Cockcroft-Gault) 90.1 BUN/Creatinine Ratio 7 (6-20) Glucose Level 101 mg/dL (70-99) Calcium Level 9.0 mg/dL (8.5-10.1) Total Bilirubin 0.5 mg/dL (0.2-1.0) Aspartate Amino Transf (AST/SGOT) 25 U/L (15-37) Alanine Aminotransferase (ALT/SGPT) 50 U/L (14-59) Alkaline Phosphatase 55 U/L (46-116) Total Protein 6.7 g/dL (6.4-8.2) Albumin 3.7 g/dL (3.4-5.0) Albumin/Globulin Ratio 1.2 (1.0-1.7) Objective Assessment Recurrent C diff,, now neg Ureteral stone, with obstruction, cysto with stenting today Kidney stone UTI ? culture neg so far Leukocytosis and fever Plan Plan of Care cont po vanc bid ok, chronic suppressive for the time being stent placement today CHE CHILDRESS MD Jul 17, 2016 08:05
[2016-07-17] MEDS: TAMSULOSIN 0.4 MG CAP.ER.24H. PO SCH (08:14)
[2016-07-17] MEDS: COLESTIPOL HCL 1 GM TABLET PO SCH ×2 (08:14→21:17)
[2016-07-17] MEDS: VANCOMYCIN 125 MG/2.5 ML ORAL SOLUTION. PO SCH ×2 (08:24→21:17)
[2016-07-17] MEDS: METOPROLOL SUCC 24HR ER 25 MG TAB.ER.24H. PO SCH (08:25)
[2016-07-17] MEDS: EZETIMIBE 10 MG TABLET. PO SCH (08:27)
--- NOTE | 2016-07-17 09:55 | PDOC ---
Subjective: Subjective: Diarrhea better. Ongoing pain. No appetite. Objective: Objective: Pt reports having multiple stools, RN has seen 1. Cystoscopy today at 4:45. Vital Signs: Vital Signs Date Time Temp Pulse Resp B/P (MAP) Pulse Ox O2 Delivery O2 Flow Rate FiO2 07/17/16 09:49 Room Air 07/17/16 08:25 93 133/81 07/17/16 07:11 18 97 07/17/16 07:00 98.7 98.7 07/16/16 16:17 96.0 Labs: Laboratory Tests Test 07/17/16 05:50 White Blood Count 11.8 x10^3/uL Red Blood Count 4.27 x10^6/uL Hemoglobin 12.8 g/dL Hematocrit 38.8 % Mean Corpuscular Volume 91 fL Mean Corpuscular Hemoglobin 30 pg Mean Corpuscular Hemoglobin Concent 33 g/dL Red Cell Distribution Width 14.1 % Platelet Count 285 x10^3/uL Neutrophils (%) (Auto) 65 % Lymphocytes (%) (Auto) 26 % Monocytes (%) (Auto) 6 % Eosinophils (%) (Auto) 3 % Basophils (%) (Auto) 0 % Neutrophils # (Auto) 7.7 x10^3uL Lymphocytes # (Auto) 3.1 x10^3/uL Monocytes # (Auto) 0.7 x10^3/uL Eosinophils # (Auto) 0.3 x10^3/uL Basophils # (Auto) 0.0 x10^3/uL Sodium Level 142 mmol/L Potassium Level 4.1 mmol/L Chloride Level 101 mmol/L Carbon Dioxide Level 33 mmol/L Anion Gap 8 Blood Urea Nitrogen 5 mg/dL Creatinine 0.7 mg/dL Estimated GFR (Cockcroft-Gault) 90.1 BUN/Creatinine Ratio 7 Glucose Level 101 mg/dL Calcium Level 9.0 mg/dL Total Bilirubin 0.5 mg/dL Aspartate Amino Transf (AST/SGOT) 25 U/L Alanine Aminotransferase (ALT/SGPT) 50 U/L Alkaline Phosphatase 55 U/L Total Protein 6.7 g/dL Albumin 3.7 g/dL Albumin/Globulin Ratio 1.2 PE: GEN: NAD LUNGS: clear anteriorly HEART: RRR ABD: BS+, tender (mostly right) NEURO/PSYCH: A & O 3 A/P: Recurrent C Diff -neg this admission x 2 -on oral vanco per ID, added Colestid yesterday, also on probiotics ---> diarrhea improved Right flank/abd pain -- Cystoscopy today, will follow. MICHELLE LUBIN Jul 17, 2016 09:55
--- NOTE | 2016-07-17 09:58 | PDOC ---
PROGRESS NOTES Assessment Problems Medical Problems: (1) Pyelonephritis Status: Acute (2) Ureteral stone Status: Acute Right shoulder pain, arm and shoulder numbness, perhaps musculoskeletal. The distribution of sensory loss is not anatomic but could be explained from referred pain from the shoulder or from a very extensive brachial plexus lesion. I find no evidence of cervical radiculopathy or myelopathy.She has had negative EMG studies, cervical MRI, cervical CT, cervical MRA, and right brachial plexus MRIs. MRI right shoulder is abnormal as reviewed below. Plan She's having her renal stone addressed surgically today I consulted orthopedics Subjective No change in symptoms Objective Vital Signs Date Time Temp Pulse Resp B/P (MAP) Pulse Ox O2 Delivery O2 Flow Rate FiO2 07/17/16 09:49 Room Air 07/17/16 08:25 93 133/81 07/17/16 07:11 18 97 07/17/16 07:00 98.7 98.7 07/16/16 16:17 96.0 Intake and Output 07/17/16 07:00 Intake Total 4587 ml Balance 4587 ml Intake Oral 2117 ml IV Total 2470 ml # Voids 6 # Bowel Movements 1 PHYSICAL EXAM Alert. Oriented to time, place and person. PERRL. EOMI. CN: no focal findings. Muscle tone: normal. Muscle strength: 5/5, with splitting of the right shoulder DTR: 2+ Plantar reflex: flexor Gait: not examined in bed. Sensory: pinprick loss in the entire right shoulder extending down to the elbow. No cerebellar signs elicited. Review of Relevant I have reviewed the following items kristen (where applicable) has been applied. Labs Laboratory Tests Test 07/16/16 08:30 07/17/16 05:50 Clostridium difficile Toxin (PCR) Negative (Negative) White Blood Count 11.8 x10^3/uL (4.0-11.0) Red Blood Count 4.27 x10^6/uL (3.50-5.40) Hemoglobin 12.8 g/dL (12.0-15.5) Hematocrit 38.8 % (36.0-47.0) Mean Corpuscular Volume 91 fL (79-100) Mean Corpuscular Hemoglobin 30 pg (25-35) Mean Corpuscular Hemoglobin Concent 33 g/dL (31-37) Red Cell Distribution Width 14.1 % (11.5-14.5) Platelet Count 285 x10^3/uL (140-400) Neutrophils (%) (Auto) 65 % (31-73) Lymphocytes (%) (Auto) 26 % (24-48) Monocytes (%) (Auto) 6 % (0-9) Eosinophils (%) (Auto) 3 % (0-3) Basophils (%) (Auto) 0 % (0-3) Neutrophils # (Auto) 7.7 x10^3uL (1.8-7.7) Lymphocytes # (Auto) 3.1 x10^3/uL (1.0-4.8) Monocytes # (Auto) 0.7 x10^3/uL (0.0-1.1) Eosinophils # (Auto) 0.3 x10^3/uL (0.0-0.7) Basophils # (Auto) 0.0 x10^3/uL (0.0-0.2) Sodium Level 142 mmol/L (136-145) Potassium Level 4.1 mmol/L (3.5-5.1) Chloride Level 101 mmol/L (98-107) Carbon Dioxide Level 33 mmol/L (21-32) Anion Gap 8 (6-14) Blood Urea Nitrogen 5 mg/dL (7-20) Creatinine 0.7 mg/dL (0.6-1.0) Estimated GFR (Cockcroft-Gault) 90.1 BUN/Creatinine Ratio 7 (6-20) Glucose Level 101 mg/dL (70-99) Calcium Level 9.0 mg/dL (8.5-10.1) Total Bilirubin 0.5 mg/dL (0.2-1.0) Aspartate Amino Transf (AST/SGOT) 25 U/L (15-37) Alanine Aminotransferase (ALT/SGPT) 50 U/L (14-59) Alkaline Phosphatase 55 U/L (46-116) Total Protein 6.7 g/dL (6.4-8.2) Albumin 3.7 g/dL (3.4-5.0) Albumin/Globulin Ratio 1.2 (1.0-1.7) Laboratory Tests Test 07/17/16 05:50 White Blood Count 11.8 x10^3/uL (4.0-11.0) Red Blood Count 4.27 x10^6/uL (3.50-5.40) Hemoglobin 12.8 g/dL (12.0-15.5) Hematocrit 38.8 % (36.0-47.0) Mean Corpuscular Volume 91 fL (79-100) Mean Corpuscular Hemoglobin 30 pg (25-35) Mean Corpuscular Hemoglobin Concent 33 g/dL (31-37) Red Cell Distribution Width 14.1 % (11.5-14.5) Platelet Count 285 x10^3/uL (140-400) Neutrophils (%) (Auto) 65 % (31-73) Lymphocytes (%) (Auto) 26 % (24-48) Monocytes (%) (Auto) 6 % (0-9) Eosinophils (%) (Auto) 3 % (0-3) Basophils (%) (Auto) 0 % (0-3) Neutrophils # (Auto) 7.7 x10^3uL (1.8-7.7) Lymphocytes # (Auto) 3.1 x10^3/uL (1.0-4.8) Monocytes # (Auto) 0.7 x10^3/uL (0.0-1.1) Eosinophils # (Auto) 0.3 x10^3/uL (0.0-0.7) Basophils # (Auto) 0.0 x10^3/uL (0.0-0.2) Sodium Level 142 mmol/L (136-145) Potassium Level 4.1 mmol/L (3.5-5.1) Chloride Level 101 mmol/L (98-107) Carbon Dioxide Level 33 mmol/L (21-32) Anion Gap 8 (6-14) Blood Urea Nitrogen 5 mg/dL (7-20) Creatinine 0.7 mg/dL (0.6-1.0) Estimated GFR (Cockcroft-Gault) 90.1 BUN/Creatinine Ratio 7 (6-20) Glucose Level 101 mg/dL (70-99) Calcium Level 9.0 mg/dL (8.5-10.1) Total Bilirubin 0.5 mg/dL (0.2-1.0) Aspartate Amino Transf (AST/SGOT) 25 U/L (15-37) Alanine Aminotransferase (ALT/SGPT) 50 U/L (14-59) Alkaline Phosphatase 55 U/L (46-116) Total Protein 6.7 g/dL (6.4-8.2) Albumin 3.7 g/dL (3.4-5.0) Albumin/Globulin Ratio 1.2 (1.0-1.7) Microbiology 07/14/16 Urine Culture - Final, Complete 07/14/16 Urine Culture Result 1 (ALEJANDRO) - Final, Complete Medications Current Medications Ketorolac Tromethamine (Toradol) 30 mg 1X ONCE IV Last administered on 00:10; Start 07/14/16 at 00:00; Stop 07/14/16 at 00:01; Status DC Morphine Sulfate 4 mg 1X ONCE IV Last administered on 07/14/16 00:10; Start at 00:00; Stop 07/14/16 at 00:01; Status DC Ondansetron HCl (Zofran) 4 mg 1X ONCE IV Last administered on 07/14/16 00:09; Start 07/14/16 at 00:00; Stop 07/14/16 at 00:01; Status DC Sodium Chloride 1,000 ml @ 1,000 mls/hr 1X ONCE IV Last administered on 00:10; Start 07/14/16 at 00:00; Stop 07/14/16 at 00:59; Status DC Hydromorphone HCl (Dilaudid) 1 mg 1X ONCE IV Last administered on 07/14/16 01: 20; Start 07/14/16 at 01:00; Stop 07/14/16 at 01:01; Status DC Ceftriaxone Sodium 50 ml @ 100 mls/hr 1X ONCE IV ; Start 07/14/16 at 01:00; Stop 07/14/16 at 01:29; Status UNV Levofloxacin/ Dextrose 150 ml @ 100 mls/hr 1X ONCE IV Last administered on 01:19; Start 07/14/16 at 01:30; Stop 07/14/16 at 02:59; Status DC Ceftriaxone Sodium 0 ml @ As Directed STK-MED ONCE IV ; Start 07/14/16 at 01:05; Stop 07/14/16 at 01:06; Status DC Ondansetron HCl (Zofran) 4 mg 1X ONCE IV Last administered on 07/14/16 01:20; Start 07/14/16 at 01:30; Stop 07/14/16 at 01:31; Status DC Diphenhydramine HCl (Benadryl) 50 mg 1X ONCE IVP ; Start 07/14/16 at 01:30; Stop 07/14/16 at 01:31; Status DC Ondansetron HCl (Zofran) 4 mg PRN Q8HRS PRN IV NAUSEA/VOMITING Last administered on 07/14/16 08:54; Start 07/14/16 at 03:00; Stop 07/14/16 at 15:21; Status DC Sodium Chloride 1,000 ml @ 125 mls/hr Q8H IV Last administered on 07/14/16 17: 44; Start 07/14/16 at 03:00; Stop 07/15/16 at 02:59; Status DC Acetaminophen (Tylenol) 650 mg PRN Q4HRS PRN PO FEVER; Start 07/14/16 at 02:45; Stop 07/15/16 at 02:44; Status DC Hydromorphone HCl (Dilaudid) 1 mg 1X ONCE IV Last administered on 07/14/16 03: 27; Start 07/14/16 at 03:00; Stop 07/14/16 at 03:01; Status DC Hydromorphone HCl (Dilaudid) 1 mg PRN Q2HR PRN IV PAIN Last administered on 07/16 10:54; Start 07/14/16 at 03:00; Stop 07/16/16 at 12:45; Status DC Ketorolac Tromethamine (Toradol) 15 mg PRN Q6HRS PRN IV PAIN Last administered on 07/15/16 10:20; Start 07/14/16 at 13:00; Stop 07/19/16 at 12:59 Prochlorperazine Edisylate (Compazine) 10 mg PRN Q6HRS PRN IV NAUSEA/VOMITING; Start 07/14/16 at 13:00; Stop 07/14/16 at 17:42; Status DC Tamsulosin HCl (Flomax) 0.4 mg DAILY PO Last administered on 07/16/16 08:31; Start 07/14/16 at 14:30 EZETIMIBE (Zetia) 10 mg DAILY PO Last administered on 07/16/16 08:30; Start 07/14/16 at 15:00 Levothyroxine Sodium (Synthroid) 100 mcg DAILY07 PO Last administered on 07:12; Start 07/14/16 at 15:00 Metoprolol Succinate (Toprol Xl) 25 mg DAILY PO Last administered on 07/17/16 08:25; Start 07/14/16 at 15:00 Atorvastatin Calcium (Lipitor) 10 mg QHS PO Last administered on 07/16/16 20:58 ; Start 07/14/16 at 21:00 Ondansetron HCl (Zofran) 4 mg PRN Q6HRS PRN IV NAUSEA/VOMITING Last administered on 07/17/16 04:53; Start 07/14/16 at 15:20 Lactobacillus Acidophilus (Bacid, Colleen-Bid) 1 tab TIDWMEALS PO Last administered on 07/16/16 16:23; Start 07/15/16 at 12:00 Sodium Chloride 1,000 ml @ 50 mls/hr Q20H IV Last administered on 07/17/16 06: 02; Start 07/15/16 at 16:00 Vancomycin HCl 250 mg [id number] PO Last administered on 07/16/16 08:30; Start 07/15/16 at 18:00; Stop 07/16/16 at 09:08; Status DC Vancomycin HCl 250 mg BID PO Last administered on 07/16/16 20:58; Start at 21:00; Stop 07/17/16 at 07:57; Status DC Ondansetron HCl (Zofran) 4 mg PRN Q6HRS PRN IV NAUSEA/VOMITING; Start 07/17/16 at 07:00; Stop 07/18/16 at 06:59 Fentanyl Citrate (Fentanyl 2ml Vial) 25 mcg PRN Q5MIN PRN IV MILD PAIN; Start 07/17/16 at 07:00; Stop 07/18/16 at 06:59 Fentanyl Citrate (Fentanyl 2ml Vial) 50 mcg PRN Q5MIN PRN IV MODERATE PAIN; Start 07/17/16 at 07:00; Stop 07/18/16 at 06:59 Morphine Sulfate 1 mg PRN Q10MIN PRN IV SEVERE PAIN; Start 07/17/16 at 07:00; Stop 07/18/16 at 06:59 Ringer's Solution 1,000 ml @ 0 mls/hr Q0M IV ; Start 07/17/16 at 07:00; Stop 07/17/16 at 18:59 Lidocaine HCl 2 ml PRN 1X PRN ID PRIOR TO IV START; Start 07/17/16 at 07:00; Stop 07/18/16 at 06:59 Hydromorphone HCl (Dilaudid) 0.5 mg PRN Q10MIN PRN IV SEV PAIN, Second choice; Start 07/17/16 at 07:00; Stop 07/18/16 at 06:59 Prochlorperazine Edisylate (Compazine) 5 mg PACU PRN PRN IV NAUSEA, MRX1; Start 07/17/16 at 07:00; Stop 07/18/16 at 06:59 Hydromorphone HCl (Dilaudid) 1 mg PRN Q2HR PRN IV PAIN; Start 07/16/16 at 12:45 Hydromorphone HCl (Dilaudid) 2 mg PRN Q2HR PRN IV PAIN Last administered on 07/17 09:49; Start 07/16/16 at 13:00 Phenyleph/Shark Oil/Min Oil/Petrol (Preparation H) 1 jackie PRN Q2HRS PRN RC RECTAL PAIN; Start 07/16/16 at 13:00 Colestipol HCl (Colestid) 1 gm BID PO Last administered on 07/16/16 20:58; Start 07/16/16 at 14:00 Gadobutrol (Gadavist) 5 mmol 1X ONCE IV Last administered on 07/16/16 16:00; Start 07/16/16 at 15:45; Stop 07/16/16 at 15:46; Status DC Iohexol (Omnipaque 300 Mg/ml) 50 ml STK-MED ONCE .ROUTE ; Start 07/17/16 at 07:05 ; Stop 07/17/16 at 07:06; Status DC Vancomycin HCl 125 mg BID PO Last administered on 07/17/16 08:24; Start at 09:00 Active Scripts Active Zofran (Ondansetron Hcl) 4 Mg Tablet 4 Mg PO BID PRN Percocet 5-325 Mg Tablet (Oxycodone/Acetaminophen) 1 Each Tablet 1 Tab PO PRN Q6HRS PRN Prednisone 20 Mg Tablet 20 Mg PO DAILY Toprol Xl (Metoprolol Succinate) 25 Mg Tab.er.24h 25 Mg PO DAILY Synthroid (Levothyroxine Sodium) 50 Mcg Tablet 100 Mcg PO DAILY07 Reported Albuterol Sulfate Conc Neb Soln (Albuterol Sulfate) 2.5 Mg/0.5 Ml Vial.neb 1 Vial NEB Q6HRS Ventolin Hfa Inhaler (Albuterol Sulfate) 18 Gm Hfa.aer.ad 2 Puff INH QID Symbicort 160-4.5 Mcg Inhaler (Budesonide/Formoterol Fumarate) 10.2 Gm Hfa.aer.ad 2 Puff IH BID Pravastatin Sodium 40 Mg Tablet 40 Mg PO DAILY Zetia (Ezetimibe) 10 Mg Tablet 10 Mg PO DAILY Vitals/I & O Vital Sign - Last 24 Hours 07/16/16 07/16/16 07/16/16 07/16/16 10:54 11:00 11:26 13:09 Temp 99.7 99.7 Pulse 93 Resp 18 B/P (MAP) 142/91 (108) Pulse Ox 98 93 O2 Delivery Room Air Room Air Room Air Room Air O2 Flow Rate 96.0 07/16/16 07/16/16 07/16/16 07/16/16 16:16 16:17 16:23 18:44 Temp 98.1 98.1 98.1 98.1 Pulse 93 93 Resp 20 B/P (MAP) 164/78 (106) 164/78 (106) Pulse Ox 100 100 O2 Delivery Room Air Room Air Room Air Room Air O2 Flow Rate 96.0 07/16/16 07/16/16 07/16/16 07/16/16 19:17 19:45 20:57 23:33 Temp 98.7 98.4 98.7 98.4 Pulse 103 91 Resp 20 18 18 B/P (MAP) 130/84 (99) 133/84 (100) Pulse Ox 95 100 97 O2 Delivery Room Air Room Air Room Air Room Air 07/16/16 07/17/16 07/17/16 07/17/16 23:39 02:08 03:13 04:44 Temp 98.7 98.7 Pulse 93 Resp 20 18 18 16 B/P (MAP) 133/81 (98) Pulse Ox 97 97 97 O2 Delivery Room Air Room Air Room Air Room Air 07/17/16 07/17/16 07/17/16 07/17/16 05:17 07:00 07:11 08:14 Temp 98.7 98.7 Pulse 103 Resp 18 18 18 B/P (MAP) 115/68 (84) Pulse Ox 97 95 97 O2 Delivery Room Air Room Air Room Air 07/17/16 07/17/16 08:25 09:49 Pulse 93 B/P (MAP) 133/81 O2 Delivery Room Air Intake and Output 07/16/16 07/16/16 07/17/16 15:00 23:00 07:00 Intake Total 1377 ml 1040 ml 2170 ml Balance 1377 ml 1040 ml 2170 ml Images Right shoulder MRI: FINDINGS: The acromioclavicular joint is intact. There is mild signal within the supraspinatus and infraspinatus tendons compatible with tendinosis. No measurable tear. Subscapularis tendon is intact. No significant subdeltoid bursal effusion. Thick cordlike middle glenohumeral ligament with a small anterosuperior labrum compatible with a Dory complex, a normal variant. Limited evaluation of the superior labrum due to motion degradation. There is mild signal within the superior labrum compatible degeneration or possibly a tear. Biceps tendon is intact. No bone lesion. No acute fracture. No acute soft tissue injury. IMPRESSION: 1. No evidence of rotator cuff tear. 2. Limited labral evaluation due to motion degradation, but small superior labral tear is possible. MRI brachial plexus FINDINGS: There is some susceptibility artifact in region of the cervical spine from the presence of metallic fusion hardware. No regions of abnormal signal seen in the region of the brachial plexus. No muscle atrophy or abnormal muscle signal is seen. Visualized lung apices are clear. No mass lesion is identified. No abnormal bone marrow signal is seen. Visualized vascular structures are within normal limits. IMPRESSION: No abnormalities identified along the course of the brachial plexus. CICI LAO MD Jul 17, 2016 09:58
--- NOTE | 2016-07-17 11:29 | RAD ---
Indication right shoulder pain. Duration 3 months. Internally and externally rotated views of the right shoulder as well as a Y view were obtained. No bony abnormality is seen. Significant degenerative changes or an acute finding involving the right shoulder is not seen.
--- NOTE | 2016-07-17 14:42 | PDOC ---
PROGRESS NOTES Chief Complaint Chief Complaint Ureterolithiasis ASSESSMENT AND PLAN: 1. Renal colic R: ongoing. 3.7 mm stone in distal ureter. cystoscopy w/Dr Oates today 2. Pain control: dilaudid PRN 3. UTI: culture with low count mixed urogenital shekhar. no Abx indicated. 4. Diarrhea: hx of recurrent C.diff, but PCR negative! appreciate Dr Palma's input: keep prophylactic PO vanco for now 5. HTN, HLD: well controlled. continue home meds 6. Cervical radiculopathy: MRA neg, Dr Belcher following. further studies ordered as well as neurology consult History of Present Illness History of Present Illness going to OR, relieved Vitals Vitals Vital Signs Date Time Temp Pulse Resp B/P (MAP) Pulse Ox O2 Delivery O2 Flow Rate FiO2 07/17/16 14:34 Room Air 07/17/16 11:00 98.7 87 18 128/83 (98) 93 98.7 07/16/16 16:17 96.0 Physical Exam General: Alert, Oriented X3, Cooperative, No acute distress Heart: Regular rate Lungs: Clear, Other Abdomen: Normal bowel sounds, Other Extremities: No edema Skin: No rashes Labs LABS Laboratory Tests Test 07/17/16 05:50 White Blood Count 11.8 x10^3/uL (4.0-11.0) Red Blood Count 4.27 x10^6/uL (3.50-5.40) Hemoglobin 12.8 g/dL (12.0-15.5) Hematocrit 38.8 % (36.0-47.0) Mean Corpuscular Volume 91 fL (79-100) Mean Corpuscular Hemoglobin 30 pg (25-35) Mean Corpuscular Hemoglobin Concent 33 g/dL (31-37) Red Cell Distribution Width 14.1 % (11.5-14.5) Platelet Count 285 x10^3/uL (140-400) Neutrophils (%) (Auto) 65 % (31-73) Lymphocytes (%) (Auto) 26 % (24-48) Monocytes (%) (Auto) 6 % (0-9) Eosinophils (%) (Auto) 3 % (0-3) Basophils (%) (Auto) 0 % (0-3) Neutrophils # (Auto) 7.7 x10^3uL (1.8-7.7) Lymphocytes # (Auto) 3.1 x10^3/uL (1.0-4.8) Monocytes # (Auto) 0.7 x10^3/uL (0.0-1.1) Eosinophils # (Auto) 0.3 x10^3/uL (0.0-0.7) Basophils # (Auto) 0.0 x10^3/uL (0.0-0.2) Sodium Level 142 mmol/L (136-145) Potassium Level 4.1 mmol/L (3.5-5.1) Chloride Level 101 mmol/L (98-107) Carbon Dioxide Level 33 mmol/L (21-32) Anion Gap 8 (6-14) Blood Urea Nitrogen 5 mg/dL (7-20) Creatinine 0.7 mg/dL (0.6-1.0) Estimated GFR (Cockcroft-Gault) 90.1 BUN/Creatinine Ratio 7 (6-20) Glucose Level 101 mg/dL (70-99) Calcium Level 9.0 mg/dL (8.5-10.1) Total Bilirubin 0.5 mg/dL (0.2-1.0) Aspartate Amino Transf (AST/SGOT) 25 U/L (15-37) Alanine Aminotransferase (ALT/SGPT) 50 U/L (14-59) Alkaline Phosphatase 55 U/L (46-116) Total Protein 6.7 g/dL (6.4-8.2) Albumin 3.7 g/dL (3.4-5.0) Albumin/Globulin Ratio 1.2 (1.0-1.7) HAWA DAVID MD Jul 17, 2016 14:42
[2016-07-17] MEDS ORDERED: SCOPOLAMINE 1.5MG PATCH. TD ONE (15:00)
[2016-07-17] MEDS ORDERED: DEXAMETHASONE SOD PHOS 4 MG/ML VIAL IV ONE (15:15)
[2016-07-17] MEDS ORDERED: fentaNYL PF VIAL 100 MCG/2 ML VIAL ONE (16:34)
[2016-07-17] MEDS ORDERED: LIDOCAINE 2% PF Vial for OR 5 ML VIAL. ONE (16:34)
[2016-07-17] MEDS ORDERED: DEXAMETHASONE SOD PHOS 20 MG/5 ML VIAL. ONE ×2 (16:34→18:17)
[2016-07-17] MEDS ORDERED: ONDANSETRON PF 4 MG/2 ML VIAL. ONE (16:34)
[2016-07-17] MEDS ORDERED: PROPOFOL 20 ML IV ONE (16:34)
[2016-07-17] MEDS ORDERED: MORPHINE SULFATE 10 MG/ML VIAL. ONE (17:27)
[2016-07-17] MEDS ORDERED: diphenhydrAMINE 50 MG/ML VIAL ONE (18:17)
--- NOTE | 2016-07-17 18:21 | PDOC ---
Provider Note Provider Note Urology: Discussed cystoscopy right retrograde possible stent placement with patient she appears to understand and agreeable, states that she has had retrograde pyelograms by Dr Stinson previously without problems. ROB HOWARD DO Jul 17, 2016 18:21
--- NOTE | 2016-07-17 18:59 | PDOC ---
BRIEF OPERATIVE NOTE Date: Jul 17, 2016 Pre-Op Diagnosis Right flank pain Post-Op Diagnosis Normal retrograde pyelogram, no ureteral calculus Procedure Performed Cystoscopy right retrograde pyelogram Surgeon Иван Anesthesia Type: General Specimens Obtained None Findings Normal right retrograde pyelogram Complications none Additional Remarks normal study, will follow-up with her urologist, ROB Cortes DO Jul 17, 2016 18:59
[2016-07-17] MEDS ORDERED: SEVOFLURANE 16 TO 30 MINUTES. IH ONE (19:07)
[2016-07-17] MEDS: MORPHINE SULFATE 2 MG/ML DISP.SYRIN. IV PRN ×3 (19:18→19:40)
--- NOTE | 2016-07-17 19:33 | PDOC2 ---
CONSULT Date of Consult Date of Consult DATE: 07/17/16 TIME: 19:19 Reason for Consult Reason for Consult: right shoulder pain Identification/Chief Complaint Chief Complaint right shoulder pain, weakness, numbness Source Source: Chart review, Patient History of Present Illness Reason for Visit: The patient is a 46 year old right-hand dominant female who presented to the ER with a chief complaint of right flank pain. While being admitted for pyelonephritis and kidney stones she reported that she has been having neck and right arm pain and weakness for a few months. She has a previous history of an ACDF, and she follows with Dr. Higginbotham for neurosurgery. I am consulted for her right shoulder pain. She describes the pain as starting on the right side of her neck and radiating down her back medial to the shoulder blade. She also has pain and tightness anteriorly that radiates down the arm and into her hand. She says it feels like there is a blood pressure cuff on her upper arm, and that her hand will get numb and tingling and go cold. She says that her neurosurgeon ordered a bunch of tests for her neck, but has not told her the results. She also says that since she is allergic to contrast, the studies have not been as useful as she would've hoped. She does not report any bowel or bladder issues, no lower back pain. 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), pancreatitis) Heme/Onc: B12 deficiency, Cancer ( thyroid) Psych: Anxiety, Depression Musculoskeletal: low back pain Rheumatologic: Rheumatoid arthritis Renal/: Other ( kidney stones) Endocrine: Hypothyroidism Past Surgical History Past Surgical History: Cholecystectomy, Hysterectomy, Other ( lithotripsy, left tibia, thyroidectomy) Family History Family History: Cancer, Coronary Artery Disease, Diabetes, Hypertension, Stroke Social History ALCOHOL: none Drugs: None Current Problem List Problem List Problems Medical Problems: (1) Pyelonephritis Status: Acute (2) Ureteral stone Status: Acute Current Medications Current Medications Current Medications Ketorolac Tromethamine (Toradol) 30 mg 1X ONCE IV Last administered on 00:10; Start 07/14/16 at 00:00; Stop 07/14/16 at 00:01; Status DC Morphine Sulfate 4 mg 1X ONCE IV Last administered on 07/14/16 00:10; Start at 00:00; Stop 07/14/16 at 00:01; Status DC Ondansetron HCl (Zofran) 4 mg 1X ONCE IV Last administered on 07/14/16 00:09; Start 07/14/16 at 00:00; Stop 07/14/16 at 00:01; Status DC Sodium Chloride 1,000 ml @ 1,000 mls/hr 1X ONCE IV Last administered on 00:10; Start 07/14/16 at 00:00; Stop 07/14/16 at 00:59; Status DC Hydromorphone HCl (Dilaudid) 1 mg 1X ONCE IV Last administered on 07/14/16 01: 20; Start 07/14/16 at 01:00; Stop 07/14/16 at 01:01; Status DC Ceftriaxone Sodium 50 ml @ 100 mls/hr 1X ONCE IV ; Start 07/14/16 at 01:00; Stop 07/14/16 at 01:29; Status UNV Levofloxacin/ Dextrose 150 ml @ 100 mls/hr 1X ONCE IV Last administered on 01:19; Start 07/14/16 at 01:30; Stop 07/14/16 at 02:59; Status DC Ceftriaxone Sodium 0 ml @ As Directed STK-MED ONCE IV ; Start 07/14/16 at 01:05; Stop 07/14/16 at 01:06; Status DC Ondansetron HCl (Zofran) 4 mg 1X ONCE IV Last administered on 07/14/16 01:20; Start 07/14/16 at 01:30; Stop 07/14/16 at 01:31; Status DC Diphenhydramine HCl (Benadryl) 50 mg 1X ONCE IVP ; Start 07/14/16 at 01:30; Stop 07/14/16 at 01:31; Status DC Ondansetron HCl (Zofran) 4 mg PRN Q8HRS PRN IV NAUSEA/VOMITING Last administered on 07/14/16 08:54; Start 07/14/16 at 03:00; Stop 07/14/16 at 15:21; Status DC Sodium Chloride 1,000 ml @ 125 mls/hr Q8H IV Last administered on 07/14/16 17: 44; Start 07/14/16 at 03:00; Stop 07/15/16 at 02:59; Status DC Acetaminophen (Tylenol) 650 mg PRN Q4HRS PRN PO FEVER; Start 07/14/16 at 02:45; Stop 07/15/16 at 02:44; Status DC Hydromorphone HCl (Dilaudid) 1 mg 1X ONCE IV Last administered on 07/14/16 03: 27; Start 07/14/16 at 03:00; Stop 07/14/16 at 03:01; Status DC Hydromorphone HCl (Dilaudid) 1 mg PRN Q2HR PRN IV PAIN Last administered on 07/16 10:54; Start 07/14/16 at 03:00; Stop 07/16/16 at 12:45; Status DC Ketorolac Tromethamine (Toradol) 15 mg PRN Q6HRS PRN IV PAIN Last administered on 07/15/16 10:20; Start 07/14/16 at 13:00; Stop 07/19/16 at 12:59 Prochlorperazine Edisylate (Compazine) 10 mg PRN Q6HRS PRN IV NAUSEA/VOMITING; Start 07/14/16 at 13:00; Stop 07/14/16 at 17:42; Status DC Tamsulosin HCl (Flomax) 0.4 mg DAILY PO Last administered on 07/16/16 08:31; Start 07/14/16 at 14:30 EZETIMIBE (Zetia) 10 mg DAILY PO Last administered on 07/16/16 08:30; Start 07/14/16 at 15:00 Levothyroxine Sodium (Synthroid) 100 mcg DAILY07 PO Last administered on 07:12; Start 07/14/16 at 15:00 Metoprolol Succinate (Toprol Xl) 25 mg DAILY PO Last administered on 07/17/16 08:25; Start 07/14/16 at 15:00 Atorvastatin Calcium (Lipitor) 10 mg QHS PO Last administered on 07/16/16 20:58 ; Start 07/14/16 at 21:00 Ondansetron HCl (Zofran) 4 mg PRN Q6HRS PRN IV NAUSEA/VOMITING Last administered on 07/17/16 11:06; Start 07/14/16 at 15:20 Lactobacillus Acidophilus (Bacid, Colleen-Bid) 1 tab TIDWMEALS PO Last administered on 07/16/16 16:23; Start 07/15/16 at 12:00 Sodium Chloride 1,000 ml @ 50 mls/hr Q20H IV Last administered on 07/17/16 06: 02; Start 07/15/16 at 16:00 Vancomycin HCl 250 mg [id number] PO Last administered on 07/16/16 08:30; Start 07/15/16 at 18:00; Stop 07/16/16 at 09:08; Status DC Vancomycin HCl 250 mg BID PO Last administered on 07/16/16 20:58; Start at 21:00; Stop 07/17/16 at 07:57; Status DC Ondansetron HCl (Zofran) 4 mg PRN Q6HRS PRN IV NAUSEA/VOMITING; Start 07/17/16 at 07:00; Stop 07/17/16 at 23:00 Fentanyl Citrate (Fentanyl 2ml Vial) 25 mcg PRN Q5MIN PRN IV MILD PAIN; Start 07/17/16 at 07:00; Stop 07/17/16 at 23:00 Fentanyl Citrate (Fentanyl 2ml Vial) 50 mcg PRN Q5MIN PRN IV MODERATE PAIN; Start 07/17/16 at 07:00; Stop 07/17/16 at 23:00 Morphine Sulfate 1 mg PRN Q10MIN PRN IV SEVERE PAIN; Start 07/17/16 at 07:00; Stop 07/17/16 at 23:00 Ringer's Solution 1,000 ml @ 0 mls/hr Q0M IV ; Start 07/17/16 at 07:00; Stop 07/17/16 at 18:59; Status DC Lidocaine HCl 2 ml PRN 1X PRN ID PRIOR TO IV START; Start 07/17/16 at 07:00; Stop 07/17/16 at 23:00 Hydromorphone HCl (Dilaudid) 0.5 mg PRN Q10MIN PRN IV SEV PAIN, Second choice; Start 07/17/16 at 07:00; Stop 07/17/16 at 23:00 Prochlorperazine Edisylate (Compazine) 5 mg PACU PRN PRN IV NAUSEA, MRX1; Start 07/17/16 at 07:00; Stop 07/17/16 at 23:00 Hydromorphone HCl (Dilaudid) 1 mg PRN Q2HR PRN IV PAIN; Start 07/16/16 at 12:45 Hydromorphone HCl (Dilaudid) 2 mg PRN Q2HR PRN IV PAIN Last administered on 07/17 14:34; Start 07/16/16 at 13:00 Phenyleph/Shark Oil/Min Oil/Petrol (Preparation H) 1 jackie PRN Q2HRS PRN RC RECTAL PAIN; Start 07/16/16 at 13:00 Colestipol HCl (Colestid) 1 gm BID PO Last administered on 07/16/16 20:58; Start 07/16/16 at 14:00; Stop 07/17/16 at 15:34; Status DC Gadobutrol (Gadavist) 5 mmol 1X ONCE IV Last administered on 07/16/16 16:00; Start 07/16/16 at 15:45; Stop 07/16/16 at 15:46; Status DC Iohexol (Omnipaque 300 Mg/ml) 50 ml STK-MED ONCE .ROUTE Last administered on 18:39; Start 07/17/16 at 07:05; Stop 07/17/16 at 07:06; Status DC Vancomycin HCl 125 mg BID PO Last administered on 07/17/16 08:24; Start at 09:00 Dexamethasone Sodium Phosphate (Decadron) 8 mg 1X ONCE IV Last administered on 07/17/16 15:34; Start 07/17/16 at 15:15; Stop 07/17/16 at 15:16; Status DC Scopolamine (Transderm-Scop) 1 patch 1X ONCE TD Last administered on 07/17/16 15:34; Start 07/17/16 at 15:00; Stop 07/17/16 at 15:16; Status DC Colestipol HCl (Colestid) 1 gm BID@1000,2200 PO ; Start 07/17/16 at 22:00 Dexamethasone Sodium Phosphate (Decadron) 20 mg STK-MED ONCE .ROUTE ; Start 07/17 at 16:34; Stop 07/17/16 at 16:35; Status DC Lidocaine HCl (Lidocaine Pf 2% Vial) 5 ml STK-MED ONCE .ROUTE ; Start 07/17/16 at 16:34; Stop 07/17/16 at 16:35; Status DC Ondansetron HCl (Zofran) 4 mg STK-MED ONCE .ROUTE ; Start 07/17/16 at 16:34; Stop 07/17/16 at 16:35; Status DC Propofol 20 ml @ As Directed STK-MED ONCE IV ; Start 07/17/16 at 16:34; Stop 07/17 at 16:35; Status DC Fentanyl Citrate (Fentanyl 2ml Vial) 100 mcg STK-MED ONCE .ROUTE ; Start at 16:34; Stop 07/17/16 at 16:35; Status DC Morphine Sulfate 10 mg STK-MED ONCE .ROUTE ; Start 07/17/16 at 17:27; Stop at 17:28; Status DC Diphenhydramine HCl (Benadryl) 50 mg STK-MED ONCE .ROUTE ; Start 07/17/16 at 18: 17; Stop 07/17/16 at 18:18; Status DC Dexamethasone Sodium Phosphate (Decadron) 20 mg STK-MED ONCE .ROUTE ; Start 07/17 at 18:17; Stop 07/17/16 at 18:18; Status DC Sevoflurane (Ultane) 15 ml STK-MED ONCE IH ; Start 07/17/16 at 19:07; Stop at 19:08; Status DC Active Scripts Active Zofran (Ondansetron Hcl) 4 Mg Tablet 4 Mg PO BID PRN Percocet 5-325 Mg Tablet (Oxycodone/Acetaminophen) 1 Each Tablet 1 Tab PO PRN Q6HRS PRN Prednisone 20 Mg Tablet 20 Mg PO DAILY Toprol Xl (Metoprolol Succinate) 25 Mg Tab.er.24h 25 Mg PO DAILY Synthroid (Levothyroxine Sodium) 50 Mcg Tablet 100 Mcg PO DAILY07 Reported Albuterol Sulfate Conc Neb Soln (Albuterol Sulfate) 2.5 Mg/0.5 Ml Vial.neb 1 Vial NEB Q6HRS Ventolin Hfa Inhaler (Albuterol Sulfate) 18 Gm Hfa.aer.ad 2 Puff INH QID Symbicort 160-4.5 Mcg Inhaler (Budesonide/Formoterol Fumarate) 10.2 Gm Hfa.aer.ad 2 Puff IH BID Pravastatin Sodium 40 Mg Tablet 40 Mg PO DAILY Zetia (Ezetimibe) 10 Mg Tablet 10 Mg PO DAILY Allergies Allergies: Coded Allergies: Iodinated Contrast Media - Oral and (Verified Allergy, Severe, Anaphylaxis , 05/26/15) cefdinir (Verified Allergy, Severe, anaphylaxis, 03/19/16) ceftriaxone (Verified Allergy, Severe, anaphylaxis, 03/19/16) shellfish derived (Verified Allergy, Severe, 05/26/15) cefazolin (Verified Allergy, Intermediate, 05/26/15) ciprofloxacin (Verified Allergy, Intermediate, RASH ONLY, 07/14/16) codeine (Verified Allergy, Intermediate, MORPHINE OK, HYDROCODONE AT HOME , 03/19/16) erythromycin base (Verified Allergy, Intermediate, 12/01/14) latex (Verified Allergy, Intermediate, Rash, 05/26/15) strawberry (Verified Allergy, Unknown, 03/19/16) ROS General: YES: Chills, Fatigue Musculoskeletal: Yes Joint Pain, Yes Joint Stiffness, Yes Pain In: (neck, shoulder, arm) Physical Exam General: Alert, Oriented X3, Cooperative, No acute distress MUSCULOSKELETAL: Other (decreased range of motion in the neck, lack of rotation to the right, decreased lateral bending to the left. midline cspine tenderness to palpation, paraspinal tenderness to palpation. tenderness to palpation over the acromioclavicular joint and the bicipital groove. FE 120 with pain terminally. ER to 30 degrees. 5/5 strength in FE/ ER. 50% decreased sensation to light touch over the C5 nerve distribution. neurovascularly intact c6-T1. hyperreflexic right upper extremity compared to the left. negative cagle's. ) Vitals VITALS Vital Signs Date Time Temp Pulse Resp B/P (MAP) Pulse Ox O2 Delivery O2 Flow Rate FiO2 07/17/16 19:10 102 18 133/78 98 Nasal Cannula 3 07/17/16 18:55 98.3 98.3 Labs Labs Laboratory Tests Test 07/16/16 08:30 07/17/16 05:50 Clostridium difficile Toxin (PCR) Negative (Negative) White Blood Count 11.8 x10^3/uL (4.0-11.0) Red Blood Count 4.27 x10^6/uL (3.50-5.40) Hemoglobin 12.8 g/dL (12.0-15.5) Hematocrit 38.8 % (36.0-47.0) Mean Corpuscular Volume 91 fL (79-100) Mean Corpuscular Hemoglobin 30 pg (25-35) Mean Corpuscular Hemoglobin Concent 33 g/dL (31-37) Red Cell Distribution Width 14.1 % (11.5-14.5) Platelet Count 285 x10^3/uL (140-400) Neutrophils (%) (Auto) 65 % (31-73) Lymphocytes (%) (Auto) 26 % (24-48) Monocytes (%) (Auto) 6 % (0-9) Eosinophils (%) (Auto) 3 % (0-3) Basophils (%) (Auto) 0 % (0-3) Neutrophils # (Auto) 7.7 x10^3uL (1.8-7.7) Lymphocytes # (Auto) 3.1 x10^3/uL (1.0-4.8) Monocytes # (Auto) 0.7 x10^3/uL (0.0-1.1) Eosinophils # (Auto) 0.3 x10^3/uL (0.0-0.7) Basophils # (Auto) 0.0 x10^3/uL (0.0-0.2) Sodium Level 142 mmol/L (136-145) Potassium Level 4.1 mmol/L (3.5-5.1) Chloride Level 101 mmol/L (98-107) Carbon Dioxide Level 33 mmol/L (21-32) Anion Gap 8 (6-14) Blood Urea Nitrogen 5 mg/dL (7-20) Creatinine 0.7 mg/dL (0.6-1.0) Estimated GFR (Cockcroft-Gault) 90.1 BUN/Creatinine Ratio 7 (6-20) Glucose Level 101 mg/dL (70-99) Calcium Level 9.0 mg/dL (8.5-10.1) Total Bilirubin 0.5 mg/dL (0.2-1.0) Aspartate Amino Transf (AST/SGOT) 25 U/L (15-37) Alanine Aminotransferase (ALT/SGPT) 50 U/L (14-59) Alkaline Phosphatase 55 U/L (46-116) Total Protein 6.7 g/dL (6.4-8.2) Albumin 3.7 g/dL (3.4-5.0) Albumin/Globulin Ratio 1.2 (1.0-1.7) Laboratory Tests Test 07/17/16 05:50 White Blood Count 11.8 x10^3/uL (4.0-11.0) Red Blood Count 4.27 x10^6/uL (3.50-5.40) Hemoglobin 12.8 g/dL (12.0-15.5) Hematocrit 38.8 % (36.0-47.0) Mean Corpuscular Volume 91 fL (79-100) Mean Corpuscular Hemoglobin 30 pg (25-35) Mean Corpuscular Hemoglobin Concent 33 g/dL (31-37) Red Cell Distribution Width 14.1 % (11.5-14.5) Platelet Count 285 x10^3/uL (140-400) Neutrophils (%) (Auto) 65 % (31-73) Lymphocytes (%) (Auto) 26 % (24-48) Monocytes (%) (Auto) 6 % (0-9) Eosinophils (%) (Auto) 3 % (0-3) Basophils (%) (Auto) 0 % (0-3) Neutrophils # (Auto) 7.7 x10^3uL (1.8-7.7) Lymphocytes # (Auto) 3.1 x10^3/uL (1.0-4.8) Monocytes # (Auto) 0.7 x10^3/uL (0.0-1.1) Eosinophils # (Auto) 0.3 x10^3/uL (0.0-0.7) Basophils # (Auto) 0.0 x10^3/uL (0.0-0.2) Sodium Level 142 mmol/L (136-145) Potassium Level 4.1 mmol/L (3.5-5.1) Chloride Level 101 mmol/L (98-107) Carbon Dioxide Level 33 mmol/L (21-32) Anion Gap 8 (6-14) Blood Urea Nitrogen 5 mg/dL (7-20) Creatinine 0.7 mg/dL (0.6-1.0) Estimated GFR (Cockcroft-Gault) 90.1 BUN/Creatinine Ratio 7 (6-20) Glucose Level 101 mg/dL (70-99) Calcium Level 9.0 mg/dL (8.5-10.1) Total Bilirubin 0.5 mg/dL (0.2-1.0) Aspartate Amino Transf (AST/SGOT) 25 U/L (15-37) Alanine Aminotransferase (ALT/SGPT) 50 U/L (14-59) Alkaline Phosphatase 55 U/L (46-116) Total Protein 6.7 g/dL (6.4-8.2) Albumin 3.7 g/dL (3.4-5.0) Albumin/Globulin Ratio 1.2 (1.0-1.7) Images Images xrays of the right shoulder are normal, do not reveal any osteoarthritis, fractures, dislocations, or any acute process. MRI of the R shoulder was reviewed, some motion artifact, but rotator cuff is intact. no acute processes. Assessment/Plan Assessment/Plan The patient is a 46 year old right-hand dominant female who has had several months of pain and decreased range of motion in her neck and right arm. After reviewing her images and performing her exam, I do believe she has some acromioclavicular joint irritation as well as bicipital tendonitis. However, I am concerned about her numbness, tingling, and hyperreflexia. I would recommend follow-up with her neurosurgeon. She is able to see me in the office for her shoulder pain, after the neurosurgeon has addressed her other issues. BISHOP WILLIAM MD Jul 17, 2016 19:33
[2016-07-17] MEDS: ATORVASTATIN CALCIUM 10 MG TABLET. PO SCH (21:17)
--- NOTE | 2016-07-17 22:51 | OP ---
DATE OF SURGERY: 07/17/2016 PREOPERATIVE DIAGNOSIS: Right flank pain, possible right ureteral calculus. POSTOPERATIVE DIAGNOSIS: Normal right retrograde pyelogram. PROCEDURE: Cystoscopy, right retrograde pyelogram. SURGEON: Rob Howard DO. ANESTHESIA: General. INDICATIONS AND JUDGMENT: This is a 46-year-old female who was admitted to the hospital with acute right flank pain. Noncontrast CT scan suggested the possibility of a calculus in the distal right ureter. Therefore, she was placed on IV fluids and analgesia to see she can pass the stone spontaneously. The patient stated she continued to have flank pain which required narcotics; therefore, it was felt that she should undergo cystoscopy, retrograde pyelogram, and possible stent placement. The procedure was explained to the patient, she appeared to understand and was agreeable. DESCRIPTION OF PROCEDURE: The patient was currently on vancomycin, so, she did not receive any additional antibiotics. She was taken to the operating room and placed on the operating room table in supine position, given a general anesthetic and then placed in a dorsolithotomy position. Perineum prepped and draped in sterile fashion. A C-arm was moved into position. Rigid cystoscopy was performed. The bladder was examined. It was completely normal. There was no evidence of tumor or stones within the bladder. The right ureteral orifice was then cannulated with an 8-Khmer cone tip ureteral catheter. Contrast was injected. No filling defects were identified within the distal ureter or the entire ureter. The drainage film was immediate. There were no filling defects and the ureter drained without any signs of obstruction or filling defects. It is felt that this was a normal retrograde pyelogram. I did advance a 0.035 Glidewire up the right ureteral orifice. I met no resistance and it passed up into the renal pelvis without difficulty resistance. I then removed the wire. This was a normal study, normal retrograde pyelogram. There were no calculi identified within the right ureter. The patient was sent to recovery room in satisfactory condition. The patient will be discharged tomorrow. She will be following up with her normal urologist, Dr. Stinson. ROB HOWARD DO DR: KUMAR/sarah JOB#: [id number] / [id number]
[2016-07-18] MEDS: HYDROmorphone 2 MG/ML VIAL IV PRN ×7 (00:07→15:24)
[2016-07-18] MEDS: IV NORMAL SALINE 1000ML BAG 1,000 ML IV SCH ×2 (02:04→17:35)
[2016-07-18 03:23] VITALS: BP 114/67
[2016-07-18] MEDS: ONDANSETRON PF 4 MG/2 ML VIAL. IV PRN ×3 (04:44→17:22)
[2016-07-18 07:00] VITALS: BP 138/80
--- NOTE | 2016-07-18 08:10 | PDOC ---
Infectious Disease Note Subjective Subjective pt feeling ok, still rt flank pain, cysto with pylogram neg for stone ROS ROS GEN: Denies fevers, chills, sweats HEENT: Denies blurred vision, sore throat CV: Denies chest pain RESP: Denies shortness of air, cough GI: Denies n/v/d NEURO: Denies confusion, dizziness MSK: Denies weakness, joint pain/swelling Vital Sign Vital Signs Vital Signs Date Time Temp Pulse Resp B/P (MAP) Pulse Ox O2 Delivery O2 Flow Rate FiO2 07/18/16 07:00 98.5 116 20 138/80 (99) 95 Room Air 98.5 07/17/16 20:30 2.0 Physical Exam PHYSICAL EXAM GENERAL: NAD, Alert HEENT: PERRL, OC/OP NECK: Supple, no JVD, no LN LUNGS: Clear HEART: S1S2, no gallop, no murmur ABD: Soft, NT, no organomegaly, no rebound EXT: No edema, no cyanosis [employer]: Alert, oriented x 3, no focal neurologic deficit SKIN: No rash IV: ok Objective Assessment Recurrent C diff,, now neg No ureteral stone found Kidney stone UTI ? culture neg so far Leukocytosis and fever improved Plan Plan of Care cont po vanc bid ok, chronic suppressive for the time being soon to d/c on po vanc bid f/u with us in 3 wks CHE CHILDRESS MD Jul 18, 2016 08:10
[2016-07-18] MEDS: LEVOTHYROXINE 100 MCG TABLET PO SCH (08:19)
[2016-07-18] MEDS: LACTOBACILLUS ACIDOPH & BULGAR 1 TABLET. PO SCH ×3 (08:20→17:21)
[2016-07-18] MEDS: TAMSULOSIN 0.4 MG CAP.ER.24H. PO SCH (08:20)
[2016-07-18] MEDS: EZETIMIBE 10 MG TABLET. PO SCH (08:20)
[2016-07-18] MEDS: METOPROLOL SUCC 24HR ER 25 MG TAB.ER.24H. PO SCH (08:21)
[2016-07-18] MEDS: VANCOMYCIN 125 MG/2.5 ML ORAL SOLUTION. PO SCH (08:22)
--- NOTE | 2016-07-18 10:06 | PDOC ---
PROGRESS NOTES Assessment Problems Medical Problems: (1) Pyelonephritis Status: Acute (2) Ureteral stone Status: Acute Right shoulder pain, arm and shoulder numbnessH Has had negative EMG studies, cervical MRI, cervical CT, cervical MRA, and right brachial plexus MRIs MRI right shoulder is abnormal, according to radiologist, but Dr. Padron is not impressed. Plan Defer to neurosurgery Defer to orthopedics Consider repeat EMG although I doubt it would be helpful. Rehabilitation modalities Pain clinic modalities Subjective No complaints Objective Vital Signs Date Time Temp Pulse Resp B/P (MAP) Pulse Ox O2 Delivery O2 Flow Rate FiO2 07/18/16 09:08 Room Air 07/18/16 08:21 116 138/80 07/18/16 07:00 98.5 20 95 98.5 07/17/16 20:30 2.0 Intake and Output 07/18/16 07:00 Intake Total 2888 ml Output Total 275 ml Balance 2613 ml Intake Oral 1580 ml IV Total 1308 ml Output Urine Total 275 ml Estimated Blood Loss 0 ml # Voids 8 # Bowel Movements 1 PHYSICAL EXAM Alert. Oriented to time, place and person. PERRL. EOMI. CN: no focal findings. Muscle tone: normal. Muscle strength: 5/5, with splinting of the right shoulder DTR: 2+ Plantar reflex: flexor Gait: not examined in bed. Sensory: pinprick loss in the entire right shoulder extending down to the elbow. No cerebellar signs elicited. Review of Relevant I have reviewed the following items kristen (where applicable) has been applied. Labs Laboratory Tests Test 07/17/16 05:50 White Blood Count 11.8 x10^3/uL (4.0-11.0) Red Blood Count 4.27 x10^6/uL (3.50-5.40) Hemoglobin 12.8 g/dL (12.0-15.5) Hematocrit 38.8 % (36.0-47.0) Mean Corpuscular Volume 91 fL (79-100) Mean Corpuscular Hemoglobin 30 pg (25-35) Mean Corpuscular Hemoglobin Concent 33 g/dL (31-37) Red Cell Distribution Width 14.1 % (11.5-14.5) Platelet Count 285 x10^3/uL (140-400) Neutrophils (%) (Auto) 65 % (31-73) Lymphocytes (%) (Auto) 26 % (24-48) Monocytes (%) (Auto) 6 % (0-9) Eosinophils (%) (Auto) 3 % (0-3) Basophils (%) (Auto) 0 % (0-3) Neutrophils # (Auto) 7.7 x10^3uL (1.8-7.7) Lymphocytes # (Auto) 3.1 x10^3/uL (1.0-4.8) Monocytes # (Auto) 0.7 x10^3/uL (0.0-1.1) Eosinophils # (Auto) 0.3 x10^3/uL (0.0-0.7) Basophils # (Auto) 0.0 x10^3/uL (0.0-0.2) Sodium Level 142 mmol/L (136-145) Potassium Level 4.1 mmol/L (3.5-5.1) Chloride Level 101 mmol/L (98-107) Carbon Dioxide Level 33 mmol/L (21-32) Anion Gap 8 (6-14) Blood Urea Nitrogen 5 mg/dL (7-20) Creatinine 0.7 mg/dL (0.6-1.0) Estimated GFR (Cockcroft-Gault) 90.1 BUN/Creatinine Ratio 7 (6-20) Glucose Level 101 mg/dL (70-99) Calcium Level 9.0 mg/dL (8.5-10.1) Total Bilirubin 0.5 mg/dL (0.2-1.0) Aspartate Amino Transf (AST/SGOT) 25 U/L (15-37) Alanine Aminotransferase (ALT/SGPT) 50 U/L (14-59) Alkaline Phosphatase 55 U/L (46-116) Total Protein 6.7 g/dL (6.4-8.2) Albumin 3.7 g/dL (3.4-5.0) Albumin/Globulin Ratio 1.2 (1.0-1.7) Microbiology 07/14/16 Urine Culture - Final, Complete 07/14/16 Urine Culture Result 1 (ALEJANDRO) - Final, Complete Medications Current Medications Ketorolac Tromethamine (Toradol) 30 mg 1X ONCE IV Last administered on t 00:10; Start 07/14/16 at 00:00; Stop 07/14/16 at 00:01; Status DC Morphine Sulfate 4 mg 1X ONCE IV Last administered on 07/14/16 00:10; Start at 00:00; Stop 07/14/16 at 00:01; Status DC Ondansetron HCl (Zofran) 4 mg 1X ONCE IV Last administered on 07/14/16 00:09; Start 07/14/16 at 00:00; Stop 07/14/16 at 00:01; Status DC Sodium Chloride 1,000 ml @ 1,000 mls/hr 1X ONCE IV Last administered on 00:10; Start 07/14/16 at 00:00; Stop 07/14/16 at 00:59; Status DC Hydromorphone HCl (Dilaudid) 1 mg 1X ONCE IV Last administered on 07/14/16 01: 20; Start 07/14/16 at 01:00; Stop 07/14/16 at 01:01; Status DC Ceftriaxone Sodium 50 ml @ 100 mls/hr 1X ONCE IV ; Start 07/14/16 at 01:00; Stop 07/14/16 at 01:29; Status UNV Levofloxacin/ Dextrose 150 ml @ 100 mls/hr 1X ONCE IV Last administered on 01:19; Start 07/14/16 at 01:30; Stop 07/14/16 at 02:59; Status DC Ceftriaxone Sodium 0 ml @ As Directed STK-MED ONCE IV ; Start 07/14/16 at 01:05; Stop 07/14/16 at 01:06; Status DC Ondansetron HCl (Zofran) 4 mg 1X ONCE IV Last administered on 07/14/16 01:20; Start 07/14/16 at 01:30; Stop 07/14/16 at 01:31; Status DC Diphenhydramine HCl (Benadryl) 50 mg 1X ONCE IVP ; Start 07/14/16 at 01:30; Stop 07/14/16 at 01:31; Status DC Ondansetron HCl (Zofran) 4 mg PRN Q8HRS PRN IV NAUSEA/VOMITING Last administered on 07/14/16 08:54; Start 07/14/16 at 03:00; Stop 07/14/16 at 15:21; Status DC Sodium Chloride 1,000 ml @ 125 mls/hr Q8H IV Last administered on 07/14/16 17: 44; Start 07/14/16 at 03:00; Stop 07/15/16 at 02:59; Status DC Acetaminophen (Tylenol) 650 mg PRN Q4HRS PRN PO FEVER; Start 07/14/16 at 02:45; Stop 07/15/16 at 02:44; Status DC Hydromorphone HCl (Dilaudid) 1 mg 1X ONCE IV Last administered on 07/14/16 03: 27; Start 07/14/16 at 03:00; Stop 07/14/16 at 03:01; Status DC Hydromorphone HCl (Dilaudid) 1 mg PRN Q2HR PRN IV PAIN Last administered on 07/16 10:54; Start 07/14/16 at 03:00; Stop 07/16/16 at 12:45; Status DC Ketorolac Tromethamine (Toradol) 15 mg PRN Q6HRS PRN IV PAIN Last administered on 07/15/16 10:20; Start 07/14/16 at 13:00; Stop 07/19/16 at 12:59 Prochlorperazine Edisylate (Compazine) 10 mg PRN Q6HRS PRN IV NAUSEA/VOMITING; Start 07/14/16 at 13:00; Stop 07/14/16 at 17:42; Status DC Tamsulosin HCl (Flomax) 0.4 mg DAILY PO Last administered on 07/18/16 08:20; Start 07/14/16 at 14:30 EZETIMIBE (Zetia) 10 mg DAILY PO Last administered on 07/18/16 08:20; Start 07/14/16 at 15:00 Levothyroxine Sodium (Synthroid) 100 mcg DAILY07 PO Last administered on 08:19; Start 07/14/16 at 15:00 Metoprolol Succinate (Toprol Xl) 25 mg DAILY PO Last administered on 07/18/16 08:21; Start 07/14/16 at 15:00 Atorvastatin Calcium (Lipitor) 10 mg QHS PO Last administered on 07/17/16 21:17 ; Start 07/14/16 at 21:00 Ondansetron HCl (Zofran) 4 mg PRN Q6HRS PRN IV NAUSEA/VOMITING Last administered on 07/18/16 04:44; Start 07/14/16 at 15:20 Lactobacillus Acidophilus (Bacid, Colleen-Bid) 1 tab TIDWMEALS PO Last administered on 07/18/16 08:20; Start 07/15/16 at 12:00 Sodium Chloride 1,000 ml @ 50 mls/hr Q20H IV Last administered on 07/17/16 06: 02; Start 07/15/16 at 16:00 Vancomycin HCl 250 mg [id number] PO Last administered on 07/16/16 08:30; Start 07/15/16 at 18:00; Stop 07/16/16 at 09:08; Status DC Vancomycin HCl 250 mg BID PO Last administered on 07/16/16 20:58; Start at 21:00; Stop 07/17/16 at 07:57; Status DC Ondansetron HCl (Zofran) 4 mg PRN Q6HRS PRN IV NAUSEA/VOMITING; Start 07/17/16 at 07:00; Stop 07/17/16 at 23:00; Status DC Fentanyl Citrate (Fentanyl 2ml Vial) 25 mcg PRN Q5MIN PRN IV MILD PAIN; Start 07/17/16 at 07:00; Stop 07/17/16 at 23:00; Status DC Fentanyl Citrate (Fentanyl 2ml Vial) 50 mcg PRN Q5MIN PRN IV MODERATE PAIN; Start 07/17/16 at 07:00; Stop 07/17/16 at 23:00; Status DC Morphine Sulfate 1 mg PRN Q10MIN PRN IV SEVERE PAIN Last administered on 19:40; Start 07/17/16 at 07:00; Stop 07/17/16 at 23:00; Status DC Ringer's Solution 1,000 ml @ 0 mls/hr Q0M IV ; Start 07/17/16 at 07:00; Stop 07/17/16 at 18:59; Status DC Lidocaine HCl 2 ml PRN 1X PRN ID PRIOR TO IV START; Start 07/17/16 at 07:00; Stop 07/17/16 at 23:00; Status DC Hydromorphone HCl (Dilaudid) 0.5 mg PRN Q10MIN PRN IV SEV PAIN, Second choice; Start 07/17/16 at 07:00; Stop 07/17/16 at 23:00; Status DC Prochlorperazine Edisylate (Compazine) 5 mg PACU PRN PRN IV NAUSEA, MRX1; Start 07/17/16 at 07:00; Stop 07/17/16 at 23:00; Status DC Hydromorphone HCl (Dilaudid) 1 mg PRN Q2HR PRN IV PAIN; Start 07/16/16 at 12:45 Hydromorphone HCl (Dilaudid) 2 mg PRN Q2HR PRN IV PAIN Last administered on 07/18 08:30; Start 07/16/16 at 13:00 Phenyleph/Shark Oil/Min Oil/Petrol (Preparation H) 1 jackie PRN Q2HRS PRN RC RECTAL PAIN; Start 07/16/16 at 13:00 Colestipol HCl (Colestid) 1 gm BID PO Last administered on 07/16/16 20:58; Start 07/16/16 at 14:00; Stop 07/17/16 at 15:34; Status DC Gadobutrol (Gadavist) 5 mmol 1X ONCE IV Last administered on 07/16/16 16:00; Start 07/16/16 at 15:45; Stop 07/16/16 at 15:46; Status DC Iohexol (Omnipaque 300 Mg/ml) 50 ml STK-MED ONCE .ROUTE Last administered on 18:39; Start 07/17/16 at 07:05; Stop 07/17/16 at 07:06; Status DC Vancomycin HCl 125 mg BID PO Last administered on 07/18/16 08:22; Start at 09:00 Dexamethasone Sodium Phosphate (Decadron) 8 mg 1X ONCE IV Last administered on 07/17/16 15:34; Start 07/17/16 at 15:15; Stop 07/17/16 at 15:16; Status DC Scopolamine (Transderm-Scop) 1 patch 1X ONCE TD Last administered on 07/17/16 15:34; Start 07/17/16 at 15:00; Stop 07/17/16 at 15:16; Status DC Colestipol HCl (Colestid) 1 gm BID@1000,2200 PO Last administered on 6/7/17at 21:17; Start 07/17/16 at 22:00 Dexamethasone Sodium Phosphate (Decadron) 20 mg STK-MED ONCE .ROUTE ; Start 07/17 at 16:34; Stop 07/17/16 at 16:35; Status DC Lidocaine HCl (Lidocaine Pf 2% Vial) 5 ml STK-MED ONCE .ROUTE ; Start 07/17/16 at 16:34; Stop 07/17/16 at 16:35; Status DC Ondansetron HCl (Zofran) 4 mg STK-MED ONCE .ROUTE ; Start 07/17/16 at 16:34; Stop 07/17/16 at 16:35; Status DC Propofol 20 ml @ As Directed STK-MED ONCE IV ; Start 07/17/16 at 16:34; Stop 07/17 at 16:35; Status DC Fentanyl Citrate (Fentanyl 2ml Vial) 100 mcg STK-MED ONCE .ROUTE ; Start at 16:34; Stop 07/17/16 at 16:35; Status DC Morphine Sulfate 10 mg STK-MED ONCE .ROUTE ; Start 07/17/16 at 17:27; Stop at 17:28; Status DC Diphenhydramine HCl (Benadryl) 50 mg STK-MED ONCE .ROUTE ; Start 07/17/16 at 18: 17; Stop 07/17/16 at 18:18; Status DC Dexamethasone Sodium Phosphate (Decadron) 20 mg STK-MED ONCE .ROUTE ; Start 07/17 at 18:17; Stop 07/17/16 at 18:18; Status DC Sevoflurane (Ultane) 15 ml STK-MED ONCE IH ; Start 07/17/16 at 19:07; Stop at 19:08; Status DC Active Scripts Active Zofran (Ondansetron Hcl) 4 Mg Tablet 4 Mg PO BID PRN Percocet 5-325 Mg Tablet (Oxycodone/Acetaminophen) 1 Each Tablet 1 Tab PO PRN Q6HRS PRN Prednisone 20 Mg Tablet 20 Mg PO DAILY Toprol Xl (Metoprolol Succinate) 25 Mg Tab.er.24h 25 Mg PO DAILY Synthroid (Levothyroxine Sodium) 50 Mcg Tablet 100 Mcg PO DAILY07 Reported Albuterol Sulfate Conc Neb Soln (Albuterol Sulfate) 2.5 Mg/0.5 Ml Vial.neb 1 Vial NEB Q6HRS Ventolin Hfa Inhaler (Albuterol Sulfate) 18 Gm Hfa.aer.ad 2 Puff INH QID Symbicort 160-4.5 Mcg Inhaler (Budesonide/Formoterol Fumarate) 10.2 Gm Hfa.aer.ad 2 Puff IH BID Pravastatin Sodium 40 Mg Tablet 40 Mg PO DAILY Zetia (Ezetimibe) 10 Mg Tablet 10 Mg PO DAILY Vitals/I & O Vital Sign - Last 24 Hours 07/17/16 07/17/16 07/17/16 07/17/16 11:00 12:28 14:34 14:50 Temp 98.7 97.4 98.7 97.4 Pulse 87 93 Resp 18 16 B/P (MAP) 128/83 (98) 138/89 Pulse Ox 93 95 O2 Delivery Room Air Room Air Room Air Room Air 07/17/16 07/17/16 07/17/16 07/17/16 18:55 18:55 19:10 19:18 Temp 98.3 98.3 Pulse 97 102 Resp 16 18 18 B/P (MAP) 126/67 133/78 Pulse Ox 99 98 98 O2 Delivery Nasal Cannula Nasal Cannula Nasal Cannula Nasal Cannula O2 Flow Rate 3 3 3 3.0 07/17/16 07/17/16 07/17/16 07/17/16 19:25 19:30 19:40 19:40 Temp 97.5 97.5 Pulse 95 100 Resp 18 18 18 18 B/P (MAP) 144/78 134/76 Pulse Ox 97 91 91 93 O2 Delivery Nasal Cannula Room Air Room Air Room Air O2 Flow Rate 3 07/17/16 07/17/16 07/17/16 07/17/16 20:00 20:00 20:15 20:30 Temp 98.6 98.6 Pulse 93 95 80 Resp 16 16 18 B/P (MAP) 135/82 (99) 134/75 (94) 134/82 (99) Pulse Ox 96 97 97 O2 Delivery Room Air Nasal Cannula Nasal Cannula Nasal Cannula O2 Flow Rate 2.0 2.0 2.0 07/17/16 07/17/16 07/17/16 07/17/16 20:45 21:00 21:18 23:00 Temp 97.9 97.9 Pulse 104 94 100 Resp 20 18 18 18 B/P (MAP) 119/98 (105) 131/90 (104) 137/85 (102) Pulse Ox 93 94 96 96 O2 Delivery Room Air Room Air Room Air Room Air 07/18/16 07/18/16 07/18/16 07/18/16 00:07 02:19 03:23 04:44 Temp 97.9 97.9 Pulse 85 Resp 18 18 18 18 B/P (MAP) 114/67 (83) Pulse Ox 96 96 95 95 O2 Delivery Room Air Room Air Room Air Room Air 07/18/16 07/18/16 07/18/16 07/18/16 05:15 07:00 08:00 08:21 Temp 98.5 98.5 Pulse 116 116 Resp 18 20 B/P (MAP) 138/80 (99) 138/80 Pulse Ox 95 95 O2 Delivery Room Air Room Air 07/18/16 07/18/16 08:30 09:08 O2 Delivery Room Air Room Air Intake and Output 07/17/16 07/17/16 07/18/16 15:00 23:00 07:00 Intake Total 1420 ml 1468 ml Output Total 275 ml Balance 1145 ml 1468 ml CICI LAO MD Jul 18, 2016 10:06
[2016-07-18] MEDS: COLESTIPOL HCL 1 GM TABLET PO SCH (10:55)
[2016-07-18 11:00] VITALS: BP 133/62
--- NOTE | 2016-07-18 12:05 | PDOC ---
Subjective: Subjective: Pain the same. Vomited after breakfast. 8-9 "stringy" stools today. Asks for Bentyl. Objective: Objective: Per RN - upset about cystoscopy because no stone found, still reports diarrhea and pain. Vital Signs: Vital Signs Date Time Temp Pulse Resp B/P (MAP) Pulse Ox O2 Delivery O2 Flow Rate FiO2 07/18/16 11:51 Room Air 07/18/16 08:21 116 138/80 07/18/16 07:00 98.5 20 95 98.5 07/17/16 20:30 2.0 PE: GEN: NAD, standing in doorway of restroom ABD: [employer] RUQ to right flank, some RLQ NEURO/PSYCH: A & O 3 A/P: Recurrent C Diff -neg this admission x 2 -on oral vanco per ID, also on Colestid on probiotics -reports frequent stools and ongoing abd pain along w/ n/v -- Other per Dr. Villagran. MYRONT, will add Bentyl. MICHELLE LUBIN Jul 18, 2016 12:05
[2016-07-18] MEDS ORDERED: DICYCLOMINE HCL 10 MG CAPSULE PO PRN (12:15)
[2016-07-18 15:10] VITALS: BP 112/77
[2016-07-18] MEDS ORDERED: oxyCODONE IR 5 MG TABLET PO PRN (17:00)
[2016-07-18] MEDS ORDERED: HYDROmorphone 2 MG/ML VIAL IV PRN (17:00)
--- NOTE | 2016-07-18 17:10 | PDOC ---
PROGRESS NOTES Chief Complaint Chief Complaint Ureterolithiasis ASSESSMENT AND PLAN: 1. Renal colic R: ongoing. 3.7 mm stone in distal ureter. cystoscopy w/Dr Oates today: no stone. pain persisting 2. Pain control: switch dilaudid to PO oxy PRN, toradol. 3. UTI: culture with low count mixed urogenital shekhar. no Abx indicated. 4. Diarrhea: hx of recurrent C.diff, but PCR negative! appreciate Dr Palma's input: keep prophylactic PO vanco for now 5. HTN, HLD: well controlled. continue home meds 6. Cervical radiculopathy: MRA neg. MRI shoulder abn, but not impressive to ortho. PT eval, pain clinic on O/P basis. F/U with Dr Palma, Dr Padron 7. Dispo: pt requests d/c today History of Present Illness History of Present Illness pain persisting in R flank to upper abd. sore anus from BM and frequent urination Vitals Vitals Vital Signs Date Time Temp Pulse Resp B/P (MAP) Pulse Ox O2 Delivery O2 Flow Rate FiO2 07/18/16 15:50 Room Air 07/18/16 15:10 99.1 84 18 112/77 (89) 95 99.1 07/17/16 20:30 2.0 Physical Exam General: Alert, Oriented X3, Cooperative, No acute distress Heart: Regular rate Lungs: Clear, Other Abdomen: Normal bowel sounds, Other Extremities: No edema Skin: No rashes HAWA DAVID MD Jul 18, 2016 17:10
[2016-07-18] MEDS ORDERED: BENZOCAINE/MENTHOL LOZENGE. PO PRN (17:15)
[2016-07-18] MEDS: KETOROLAC 15 MG/ML VIAL. IV PRN (17:22)
[2016-07-18] MEDS ORDERED: OXYC-328 PO (18:20)
[2016-07-18] MEDS ORDERED: ACID1TAB14 PO (18:20)
[2016-07-18] MEDS ORDERED: DICY10CA53 PO (18:20)
[2016-07-18] MEDS ORDERED: TAMS0.4C97 PO (18:20)
[2016-07-18] MEDS ORDERED: VANC500V PO (18:20)
[2016-07-18] MEDS ORDERED: FLUC150T PO (18:28)
--- NOTE | 2016-07-19 01:25 | DS ---
DATE OF DISCHARGE: 07/18/2016 CHIEF COMPLAINT: Urolithiasis. HOSPITAL COURSE: The patient is a 46-year-old woman, who presented to the Emergency Room with right flank and right upper quadrant abdominal pain consistent with renal colic. She had a longstanding history of similar presentations in the past with multiple cystoscopies and ureteral stent placement in the past. On CT, she was indeed shown to have a 3.7-mm stone in the distal right ureter. Urology was consulted and she was ultimately taken for cystoscopy by Dr. Oates, which ultimately did not happen as Dr. Oates felt that the stone had passed. Pain however was persisting. Medications were switched from IV Dilaudid to oxy p.r.n. as well as Toradol with good results. A second issue was a suspected UTI by UA. She had been placed on empiric ceftriaxone at admission for this. However, urine culture later showed this to be a mixed urogenital shekhar of low count and antibiotics were stopped. Third issue was recurrent diarrhea. Her Infectious Disease physician, Dr. 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 Because of her suspected UTI, she was started on vancomycin, which was continued even when C. Diff was proven to be negative. Prophylactic p.o. vancomycin b.i.d. was advised by Dr. Palma for continued prevention with plans for further fecal transplant by the end of the month. Last issue was cervical radiculopathy for which she has seen Dr. Belcher on an outpatient basis. An outpatient MRA was obtained here in the hospital, which did not show any significant findings. Neurology was consulted. MRI of the shoulder showed a labrum tear, for which Orthopedic Surgery was consulted. Followup on an outpatient basis was advised. DISCHARGE PHYSICAL EXAMINATION: Please refer to note from same day. DISCHARGE DISPOSITION: To home. DISCHARGE CONDITION: Improved. DISCHARGE DIAGNOSES: Right ureterolithiasis, urinary tract infection, and cervical radiculopathy. DISCHARGE DISPOSITION: Home. DISCHARGE CONDITION: Improved. DISCHARGE MEDICATIONS: Please refer to MAR. DISCHARGE INSTRUCTIONS: The patient will follow up with PCP in 1-2 weeks. She will also see Dr. Palma in 3 weeks and make an appointment to follow up with Dr. Padron in 3-4 weeks as well. HAWA DAVID MD DR: BLAIR/sarah JOB#: [id number] / [id number] EVELIA Abraham
== END 2016-07-18 19:00 | disposition home or self-care (01) | DRG 690 ==
LOC: ER 23:23 → 4 NORTH 07-14 02:36
PROVIDERS: ADMIT Internal Medicine; ATTEND Internal Medicine
PROC: BT1D1ZZ Fluoroscopy of Right Kidney, Ureter and Bladder using Low Osmolar Contrast (ICD-10-PCS; principal; 2016-07-17 16:45)
DX: N39.0 Urinary tract infection, site not specified (principal); R65.10 Systemic inflammatory response syndrome (SIRS) of non-infectious origin without acute organ dysfunction; N13.2 Hydronephrosis with renal and ureteral calculous obstruction; K57.10 Diverticulosis of small intestine without perforation or abscess without bleeding; M06.9 Rheumatoid arthritis, unspecified; M47.9 Spondylosis, unspecified; F32.9 Major depressive disorder, single episode, unspecified; F41.9 Anxiety disorder, unspecified; M48.02 Spinal stenosis, cervical region; M50.11 Cervical disc disorder with radiculopathy, high cervical region; M75.20 Bicipital tendinitis, unspecified shoulder; Z82.3 Family history of stroke; Z82.49 Family history of ischemic heart disease and other diseases of the circulatory system; Z83.3 Family history of diabetes mellitus; Z85.850 Personal history of malignant neoplasm of thyroid; Z87.442 Personal history of urinary calculi; Z90.710 Acquired absence of both cervix and uterus; Z92.3 Personal history of irradiation; Z88.1 Allergy status to other antibiotic agents; Z91.041 Radiographic dye allergy status; Z91.040 Latex allergy status; Z88.5 Allergy status to narcotic agent; Z91.013 Allergy to seafood; Z91.018 Allergy to other foods; Z88.8 Allergy status to other drugs, medicaments and biological substances
CPT/HCPCS: 36415; 70547; 71552; 73030; 73221; 74000; 74176; 74420; 80048; 80053; 81001; 85027; 87086; 87324; 96365; 96366; 96375; 96376; C1769; J1100; J1170; J1200; J1885; J1956; J2270; J2405; J2704; J3010; J7030; Q9967; 99285-25; A9585

== ENCOUNTER 2016-10-03 10:06 | Emergency (ER) | payer OTHER ==
[~2016-10-03] VITALS: Ht 162.6 cm; Wt 59.0 kg
[~2016-10-03 10:06] MED LIST changes: +DICY10CA53 PO; +FLUC150T PO; +OXYC-328 PO; +TAMS0.4C97 PO; +VANC500V PO
[2016-10-03 10:29] VITALS: BP 134/84
--- NOTE | 2016-10-03 10:35 | RAD ---
Left wrist, 3 views, 10/03/2016: History: Pain, previous injury No previous wrist radiograph is available at this time for comparison purposes. There is a transverse band of sclerosis in the distal radius compatible with a healing nondisplaced fracture. No other fracture or dislocation is identified. The carpal bones appear intact. There is mild diffuse soft tissue swelling about the wrist. IMPRESSION: Healing nondisplaced distal radial fracture.
--- NOTE | 2016-10-03 11:36 | PHYS DOC ---
Past Medical History Past Medical History: Kidney Stone Additional Past Medical Histor: pancreatitis, C-diff, thyroid cancer, rheumatoid arthritis Past Surgical History: Hysterectomy, Other Additional Past Surgical Histo: thyroidectomy Alcohol Use: None Drug Use: None Adult General Chief Complaint Chief Complaint: WRIST PAIN [facility] HPI Patient is a 46 year old female presents to the emergency department stating that she has having left wrist pain and discomfort. Patient states that she fractured this wrist approximately one month ago. Patient states that she had a cast in place in which they removed the cast in place her in a splint. She states however this point was causing her to break out and have increased pain and discomfort. The patient is to remove the splint completely. Patient states that she has not been wearing anything for support around the wrist. She states she is having increased wrist pain and discomfort. She denies any new injury or trauma to the wrist area. She states that sometimes the wrist feels very very warm. She states that she has pain that radiates up into the elbow. She denies any fever, chills or any nausea vomiting at this time. Patient is able to move her fingers and wrist with minimal difficulty. Peripheral pulses 2+ cap refill brisk less than 2 seconds. Patient is right-hand dominant. Review of Systems Review of Systems Constitutional: Denies fever or chills [] Eyes: Denies change in visual acuity, redness, or eye pain [] HENT: Denies nasal congestion or sore throat [] Respiratory: Denies cough or shortness of breath [] Cardiovascular: No additional information not addressed in HPI [] GI: Denies abdominal pain, nausea, vomiting, bloody stools or diarrhea [] : Denies dysuria or hematuria [] Musculoskeletal: Denies back pain. Complaint of left wrist pain and discomfort. Integument: Denies rash or skin lesions [] Neurologic: Denies headache, focal weakness or sensory changes [] Endocrine: Denies polyuria or polydipsia [] Allergies Allergies Allergies Coded Allergies Type Severity Reaction Last Updated Verified Iodinated Contrast- Oral and IV Dye Allergy Severe Anaphylaxis 05/26/15 Yes cefdinir Allergy Severe anaphylaxis 03/19/16 Yes ceftriaxone Allergy Severe anaphylaxis 03/19/16 Yes shellfish derived Allergy Severe 05/26/15 Yes strawberry Allergy Severe 07/18/16 Yes cefazolin Allergy Intermediate 05/26/15 Yes ciprofloxacin Allergy Intermediate RASH ONLY 07/14/16 Yes codeine Allergy Intermediate MORPHINE OK, HYDROCODONE AT HOME 03/19/16 Yes erythromycin base Allergy Intermediate 12/01/14 Yes latex Allergy Intermediate Rash 05/26/15 Yes Physical Exam Physical Exam Constitutional: Well developed, well nourished, no acute distress, non-toxic appearance. [] HENT: Normocephalic, atraumatic, bilateral external ears normal, oropharynx moist, no oral exudates, nose normal. [] Eyes: PERRLA, EOMI, conjunctiva normal, no discharge. [] Neck: Normal range of motion, no tenderness, supple, no stridor. [] Cardiovascular:Heart rate regular rhythm, no murmur [] Lungs & Thorax: Bilateral breath sounds clear to auscultation [] Skin: Warm, dry, no erythema, no rash. [] Back: No tenderness Extremities: Left wrist tenderness, no cyanosis, no clubbing, ROM intact, no edema. Patient with slightly decreased range of motion. Peripheral pulses 2+ cap refill brisk less than 2 seconds. No bruising or discoloration noted around the area. Neurologic: Alert and oriented X 3, normal motor function, normal sensory function, no focal deficits noted. [] Psychologic: Affect normal, judgement normal, mood normal. [] Current Patient Data Vital Signs Vital Signs Date Time Temp Pulse Resp B/P (MAP) Pulse Ox O2 Delivery O2 Flow Rate FiO2 10/03/16 10:29 98.4 88 16 100 Room Air 98.4 EKG EKG [] Radiology/Procedures Radiology/Procedures [facility] [address] [place] [address] IMAGING REPORT Signed PATIENT: ALICJA ALVARADO ACCOUNT: [id number] : 1970 LOCATION: ER AGE: 46 SEX: F EXAM STATUS: REG ER ORD. PHYSICIAN: CORY JIANG APRN REASON: pain and discomfort from old fracture in August/no known new injury PROCEDURE: WRIST 3V LEFT Left wrist, 3 views, 10/03/2016: History: Pain, previous injury No previous wrist radiograph is available at this time for comparison purposes. There is a transverse band of sclerosis in the distal radius compatible with a healing nondisplaced fracture. No other fracture or dislocation is identified. The carpal bones appear intact. There is mild diffuse soft tissue swelling about the wrist. IMPRESSION: Healing nondisplaced distal radial fracture. DICTATED and SIGNED BY: AUBREY ARMIJO MD DATE: 10/03/16 1031 CC: CORY JINAG APRN; NON,STAFF; EVELIA CORBETT ~ [] Course & Med Decision Making Course & Med Decision Making Pertinent Labs and Imaging studies reviewed. (See chart for details) X-rays were negative for acute fracture. There does appear to be a healing nondisplaced fracture of the left radial. Patient will be placed in a Velcro splint with recommendations to follow-up with orthopedic in which patient states she a follow-up appointment with orthopedic in approximately 2 weeks. Also recommended Tylenol or ibuprofen for pain and discomfort elevation as much as possible. Patient will be discharged home in stable condition. Signs and symptoms to return back to emergency department as been provided. All questions and concerns been answered at patient's bedside. [] Dragon Disclaimer Dragon Disclaimer This electronic medical record was generated, in whole or in part, using a voice recognition dictation system. Departure Departure Impression: Primary Impression: Left wrist pain Disposition: 01 HOME, SELF-CARE Condition: STABLE Referrals: EVELIA CORBETT (PCP) Patient Instructions: Wrist Pain, [id number] Additional Instructions: Activity as tolerated. Tylenol or ibuprofen for pain and discomfort. Ice packs on 20 minutes off 20 minutes several times a day. Elevation as much as possible. Wear the splint for the next week. Follow-up with orthopedic within the next week. Return back to emergency prior signs symptoms of become worse. CORY JIANG APRN Oct 03, 2016 11:36
== END 2016-10-03 11:51 | disposition home or self-care (01) ==
LOC: ER 10:06
DX: M25.532 Pain in left wrist (principal); M06.9 Rheumatoid arthritis, unspecified; Z87.442 Personal history of urinary calculi; Z90.710 Acquired absence of both cervix and uterus; Z85.850 Personal history of malignant neoplasm of thyroid
CPT/HCPCS: 29125; 73110; 99284-25

== ENCOUNTER 2016-10-14 09:49 | Emergency (ER) | payer OTHER ==
[~2016-10-14] VITALS: Ht 162.6 cm; Wt 59.0 kg
[2016-10-14 10:22] LABS: BASO # 0.1 x10^3/uL (0.0-0.2); BASO % 1 % (0-3); EOS % 1 % (0-3); HEMATOCRIT 41.8 % (36.0-47.0); HEMOGLOBIN 13.6 g/dL (12.0-15.5); LYMPH # 1.7 x10^3/uL (1.0-4.8); LYMPH % 17 % (24-48); MEAN CORPUSCULAR HEMOGLOBIN 28 pg (25-35); MEAN CORPUSCULAR HGB CONC 33 g/dL (31-37); MEAN CORPUSCULAR VOLUME 87 fL (79-100); MONO % 5 % (0-9); NEUT % 77 % (31-73); PLATELET COUNT 322 x10^3/uL (140-400); RED CELL DISTRIBUTION WIDTH 15.4 % (11.5-14.5); WHITE BLOOD COUNT 10.1 x10^3/uL (4.0-11.0)
[2016-10-14 10:28] LABS: CALCIUM 9.4 mg/dL (8.5-10.1); CREATININE 0.8 mg/dL (0.6-1.0); GFR 77.2; POTASSIUM 3.5 mmol/L (3.5-5.1)
[2016-10-14 10:32] LABS: BILIRUBIN,URINE NEGATIVE (NEG); GLUCOSE,URINE NEGATIVE (NEG); NITRITE,URINE NEGATIVE (NEG); PROTEIN,URINE NEGATIVE (NEG-TRACE); UROBILINOGEN,URINE 0.2 mg/dL (0.2 mg/dL)
[2016-10-14 10:35] LABS: ALBUMIN 3.8 g/dL (3.4-5.0); ALBUMIN/GLOBULIN RATIO 1.1 (1.0-1.7); TOTAL BILIRUBIN 0.3 mg/dL (0.2-1.0); TOTAL PROTEIN 7.3 g/dL (6.4-8.2)
[2016-10-14] MEDS ORDERED: IV NORMAL SALINE 1000ML BAG 1,000 ML IV SCH (10:43)
[2016-10-14] MEDS ORDERED: ONDANSETRON PF 4 MG/2 ML VIAL. IV ONE (10:45)
--- NOTE | 2016-10-14 10:46 | PHYS DOC ---
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 The patient's pain is mild to moderate intermittent and without alleviating factors. Not associated with vomiting or diarrhea. Patient has a history of pancreatitis. She has a history of cholecystectomy. She also has a history of nephrolithiasis. Review of systems is negative for nausea vomiting fevers chills polyuria dysuria. All other review of systems is negative unless otherwise noted in history of present illness. ED course: 46-year-old female presenting to the emergency department today with right-sided flank pain. Triage vital signs show her to be mild tachycardic likely secondary to pain. Otherwise unremarkable. Pertinent physical examination findings show mild right CVA tenderness. Negative McBurney's point. Nontender abdomen. Otherwise remainder the examination is unremarkable. IV fluids nausea and pain medication ordered for the patient. Blood work and urinalysis sent along with CT of the abdomen pelvis being obtained. CT shows intrarenal stones. Commented on increased esophageal thickness. I communicated the patient the need for EGD to evaluate the esophagus for possible esophageal carcinoma. She demonstrates verbal understanding. Otherwise blood work and urinalysis obtained which were unremarkable. Patient is feeling much better on reexamination. Repeat abdominal exam continues to be nontender. The patient was then discharged home in stable condition to follow up with their primary care physician over the next 2-3 days. They were to return if their symptoms worsened or if they were concerned for any reason. [id number] discharge instructions and return precautions were given. Patient's questions were answered to their satisfaction. Patient is comfortable plan. Review of Systems Review of Systems SEE ABOVE. Current Medications Current Medications Current Medications Medications (Trade) Dose Ordered Sig/Adia Start Time Stop Time Status Last Admin Dose Admin Hydromorphone HCl (Dilaudid) 0.5 mg PRN Q15MIN PRN 10/14/16 10:45 10/15/16 10:44 10/14/16 12:05 0.5 MG Ondansetron HCl (Zofran) 4 mg 1X ONCE 10/14/16 10:45 10/14/16 10:47 DC 10/14/16 11:03 4 MG Sodium Chloride 1,000 ml @ 1,000 mls/hr Q1H 10/14/16 10:43 10/14/16 11:42 DC 10/14/16 11:03 1,000 MLS/HR Allergies Allergies Allergies Coded Allergies Type Severity Reaction Last Updated Verified Iodinated Contrast- Oral and IV Dye Allergy Severe Anaphylaxis 05/26/15 Yes cefdinir Allergy Severe anaphylaxis 03/19/16 Yes ceftriaxone Allergy Severe anaphylaxis 03/19/16 Yes shellfish derived Allergy Severe 05/26/15 Yes strawberry Allergy Severe 07/18/16 Yes cefazolin Allergy Intermediate 05/26/15 Yes ciprofloxacin Allergy Intermediate RASH ONLY 07/14/16 Yes codeine Allergy Intermediate MORPHINE OK, HYDROCODONE AT HOME 03/19/16 Yes erythromycin base Allergy Intermediate 12/01/14 Yes latex Allergy Intermediate Rash 05/26/15 Yes Physical Exam Physical Exam SEE ABOVE Constitutional: Well developed, well nourished, no acute distress, non-toxic appearance. HENT: Normocephalic, atraumatic, bilateral external ears normal, oropharynx moist, no oral exudates, nose normal. [] Eyes: PERRLA, EOMI, conjunctiva normal, no discharge. Neck: Normal range of motion, no tenderness, supple, no stridor. [] Cardiovascular:Heart rate regular rhythm, no murmur Lungs & Thorax: Bilateral breath sounds clear to auscultation [] Abdomen: Bowel sounds normal, soft, no tenderness, no masses, no pulsatile masses. [] Skin: Warm, dry, no erythema, no rash. [] Back: see above. No erythema ecchymosis. Extremities: No tenderness, no cyanosis, no clubbing, ROM intact, no edema. [] Neurologic: Alert and oriented X 3, normal motor function, normal sensory function, no focal deficits noted. [] Psychologic: Affect normal, judgement normal, mood normal. [] Current Patient Data Vital Signs Vital Signs Date Time Temp Pulse Resp B/P (MAP) Pulse Ox O2 Delivery O2 Flow Rate FiO2 10/14/16 12:05 18 99 Room Air 10/14/16 10:00 99.1 108 139/86 (103) 99.1 Lab Values Laboratory Tests Test 10/14/16 09:53 10/14/16 10:10 Urine Collection Type Unknown Urine Color Yellow Urine Clarity Clear Urine pH 6.0 Urine Specific Only 1.025 Urine Protein Negative mg/dL (NEG-TRACE) Urine Glucose (UA) Negative mg/dL (NEG) Urine Ketones (Stick) Negative mg/dL (NEG) Urine Blood Negative (NEG) Urine Nitrite Negative (NEG) Urine Bilirubin Negative (NEG) Urine Urobilinogen Dipstick 0.2 mg/dL (0.2 mg/dL) Urine Leukocyte Esterase Negative (NEG) Urine RBC 0 /HPF (0-2) Urine WBC 0 /HPF (0-4) Urine Squamous Epithelial Cells Few /LPF Urine Bacteria 0 /HPF (0-FEW) White Blood Count 10.1 x10^3/uL (4.0-11.0) Red Blood Count 4.80 x10^6/uL (3.50-5.40) Hemoglobin 13.6 g/dL (12.0-15.5) Hematocrit 41.8 % (36.0-47.0) Mean Corpuscular Volume 87 fL (79-100) Mean Corpuscular Hemoglobin 28 pg (25-35) Mean Corpuscular Hemoglobin Concent 33 g/dL (31-37) Red Cell Distribution Width 15.4 % (11.5-14.5) H Platelet Count 322 x10^3/uL (140-400) Neutrophils (%) (Auto) 77 % (31-73) H Lymphocytes (%) (Auto) 17 % (24-48) L Monocytes (%) (Auto) 5 % (0-9) Eosinophils (%) (Auto) 1 % (0-3) Basophils (%) (Auto) 1 % (0-3) Neutrophils # (Auto) 7.8 x10^3uL (1.8-7.7) H Lymphocytes # (Auto) 1.7 x10^3/uL (1.0-4.8) Monocytes # (Auto) 0.5 x10^3/uL (0.0-1.1) Eosinophils # (Auto) 0.1 x10^3/uL (0.0-0.7) Basophils # (Auto) 0.1 x10^3/uL (0.0-0.2) Sodium Level 141 mmol/L (136-145) Potassium Level 3.5 mmol/L (3.5-5.1) Chloride Level 102 mmol/L (98-107) Carbon Dioxide Level 29 mmol/L (21-32) Anion Gap 10 (6-14) Blood Urea Nitrogen 5 mg/dL (7-20) L Creatinine 0.8 mg/dL (0.6-1.0) Estimated GFR (Cockcroft-Gault) 77.2 BUN/Creatinine Ratio 6 (6-20) Glucose Level 147 mg/dL (70-99) H Calcium Level 9.4 mg/dL (8.5-10.1) Total Bilirubin 0.3 mg/dL (0.2-1.0) Aspartate Amino Transferase (AST) 25 U/L (15-37) Alanine Aminotransferase (ALT) 39 U/L (14-59) Alkaline Phosphatase 67 U/L (46-116) Total Protein 7.3 g/dL (6.4-8.2) Albumin 3.8 g/dL (3.4-5.0) Albumin/Globulin Ratio 1.1 (1.0-1.7) Lipase 137 U/L (73-393) Laboratory Tests 10/14/16 10:10 Laboratory Tests 10/14/16 10:10 EKG EKG [] Radiology/Procedures Radiology/Procedures [] Course & Med Decision Making Course & Med Decision Making Pertinent Labs and Imaging studies reviewed. (See chart for details) [] Dragon Disclaimer Dragon Disclaimer This electronic medical record was generated, in whole or in part, using a voice recognition dictation system. Departure Departure Impression: Primary Impression: Right flank pain Disposition: 01 HOME, SELF-CARE Condition: STABLE Referrals: EVELIA CORBETT (PCP) Patient Instructions: Flank Pain Additional Instructions: Thank you for allowing us to participate in your care today. Followup with your primary care physician in 3 days if your symptoms do not improve. Call your Primary Doctor tomorrow and inform them of your visit today. If you do not have a primary care provider you can ask for a list of our primary care providers. Return to the emergency department you have any new or concerning findings. This should be evaluated by the primary care physician and any necessary consulting services for continued management within a few days after discharge. Return to emergency room if you have any new or concerning symptoms including but not limited to fever, chills, nausea, vomiting, intractable pain, any new rashes, chest pain, shortness of air, uncontrolled bleeding, difficulty breathing, and/or vision loss. You may have been prescribed medication that can change in your level of thinking and ability to operate machinery. These medications include hydrocodone and Ativan. Also, Benadryl has been known to do this as well. Be sure to check with your pharmacist and ask if the medications you've prescribed can affect your level of consciousness. I recommend not operating heavy machinery or driving while on medication such as these. RIMA GU MD Oct 14, 2016 10:46
[2016-10-14 10:52] LABS: BACTERIA,URINE 0 /HPF (0-FEW); RBC,URINE 0 /HPF (0-2); SQUAMOUS EPITHELIAL CELL,UR FEW /LPF; WBC,URINE 0 /HPF (0-4)
[2016-10-14] MEDS: HYDROmorphone 2 MG/ML VIAL IV/SQ PRN ×2 (11:03→12:05)
--- NOTE | 2016-10-14 11:55 | RAD ---
Examination: CT of the abdomen pelvis without contrast History: History of right flank pain Comparison: 07/14/2016 Technique: Axial CT images of the abdomen pelvis were performed without contrast. Coronal and sagittal reformats were performed PQRS Compliance Statement: One or more of the following individualized dose reduction techniques were utilized for this examination: 1. Automated exposure control 2. Adjustment of the mA and/or kV according to patient size 3. Use of iterative reconstruction technique. Findings: The visualized bibasal lungs grossly appears unremarkable. No evidence of free air identified and in the abdomen. Minimal amount of air identified in the intrahepatic bile ducts on the left likely pneumobilia appears less prominent compared to prior exam. Changes of cholecystectomy. The visualized spleen, adrenals grossly appears unremarkable. The visualized pancreas grossly appears unremarkable. The stomach is mildly distended. The small bowel is nondilated. The appendix is normal. Feces and gas noted in the colon. There is mild thickened appearance of the distal esophagus. Multiple bilateral intrarenal collecting system calculi identified in the kidneys with the largest measuring 4 mm on the right and 5 mm in the left. No obvious hydronephrosis identified. Urinary bladder is mildly distended. Few sigmoid colon diverticulosis identified. Impression: 1. Multiple bilateral intrarenal collecting system calculi without hydronephrosis. 2. Decreased pneumobilia. 3. Mild nonspecific thickening of the distal esophagus.
[2016-10-14 12:29] VITALS: BP 126/65
[2016-10-14] MEDS ORDERED: METOCLOPRAMIDE HCL 10 MG/2 ML VIAL. IV ONE (12:30)
== END 2016-10-14 13:06 | disposition home or self-care (01) ==
LOC: ER 09:49
DX: R10.9 Unspecified abdominal pain (principal); Z90.710 Acquired absence of both cervix and uterus; Z90.49 Acquired absence of other specified parts of digestive tract; Z87.442 Personal history of urinary calculi; Z88.1 Allergy status to other antibiotic agents; Z88.5 Allergy status to narcotic agent; Z91.041 Radiographic dye allergy status; Z91.040 Latex allergy status; Z91.013 Allergy to seafood; Z91.018 Allergy to other foods
CPT/HCPCS: 36415; 74176; 80053; 81001; 83690; 85025; 96361; 96374; 96375; 96376; 99285; J1170; J2405; J2765; J7030

== ENCOUNTER → 2016-10-31 | Outpatient (CLI) | payer OTHER ==
[2016-10-14 12:29] VITALS: BP 126/65
--- NOTE | 2016-10-31 13:24 | KCIC ---
Examination: MRI of the left wrist without contrast HISTORY: History of fracture of the distal left radius, pain COMPARISON: None available TECHNIQUE: Multiplanar, multisequence MR imaging of the left wrist were performed without contrast FINDINGS: There is nondisplaced transverse fracture of the distal radius metadiaphysis with mild increased T2 signal along the fracture line. The fracture line involves the distal radioulnar joint. Examination is somewhat limited due to motion artifact. The alignment of the carpal bones grossly appears unremarkable. Visualized scapholunate ligament, lunotriquetral ligament grossly appears intact. A small amount of fluid identified in the distal radioulnar joint. Mild amount of fluid identified in the radiocarpal joint. The evaluation of triangular fibrocartilage is limited on this examination due to significant motion. The ulna slightly dorsally subluxed in relation to the distal radius. The evaluation of the flexor tendons, extensor compartment tendons limited due to significant motion. However the visualized flexor and extensor compartment tendons grossly appears unremarkable. The visualized median nerve within the carpal tunnel and ulna nerve in the Guyon's canal grossly appears unremarkable. IMPRESSION: 1. Nondisplaced transverse fracture of the distal radius metadiaphysis with the fracture line involving the distal radioulnar joint. There is T2 signal identified on the fracture line suggesting ongoing healing changes. 2. A small amount of fluid identified in the distal radioulnar joint, underlying tear of the triangular fibrocartilage is not excluded. Examination is limited due to significant motion artifact. MR arthrogram may be useful for further evaluation. 3. Dorsal subluxed appearance of the distal ulna in relation to the radius. Correlate clinically. Electronically signed by: Doe Mccord MD (10/31/2016 1:20 PM) [id number]
== END | disposition home or self-care (01) ==
LOC: KCIC MRI 11:59
PROVIDERS: ATTEND Orthopaedic Surgery
DX: S52.502A Unspecified fracture of the lower end of left radius, initial encounter for closed fracture (principal); X58.XXXA Exposure to other specified factors, initial encounter; Y93.89 Activity, other specified; Y92.89 Other specified places as the place of occurrence of the external cause; Y99.8 Other external cause status
CPT/HCPCS: 73221

== ENCOUNTER 2016-12-31 23:41 | Emergency (ER) | payer OTHER ==
[~2016-12-31] VITALS: Ht 160 cm; Wt 56.7 kg
[2017-01-01] MEDS ORDERED: ONDANSETRON PF 4 MG/2 ML VIAL. IV ONE (00:30)
[2017-01-01] MEDS ORDERED: IV RINGERS,LACTATED 1000ML 1,000 ML IV SCH (00:30)
[2017-01-01] MEDS ORDERED: fentaNYL PF VIAL 100 MCG/2 ML VIAL IV PRN (00:30)
--- NOTE | 2017-01-01 00:54 | PHYS DOC ---
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 She states the pain started on Friday. It did increase today. She's had 3 episodes of vomiting and 5 episodes of diarrhea today. No blood in her stool or vomit. No fever. No recent travel. She's not had any known sick contacts. Pain is mid abdomen and cramping. No fever or chills. No urinary complaints. She has history kidney stones but this is different. Review of Systems Review of Systems Constitutional: Denies fever or chills Eyes: Denies change in visual acuity, redness, or eye pain HENT: Denies nasal congestion or sore throat Respiratory: Denies cough or shortness of breath Cardiovascular: No chest pain GI: POS abdominal pain, nausea, vomiting, NO bloody stools but POS diarrhea : Denies dysuria or hematuria Musculoskeletal: Denies back pain or joint pain Integument: Denies rash or skin lesions Neurologic: Denies headache, focal weakness or sensory changes All other systems were reviewed and found to be within normal limits, except as documented in this note. Current Medications Current Medications Current Medications Medications (Trade) Dose Ordered Sig/Adia Start Time Stop Time Status Last Admin Dose Admin Fentanyl Citrate (Fentanyl 2ml Vial) 25 mcg PRN Q15MIN PRN 01/01/17 00:30 01/02/17 00:29 01/01/17 01:05 25 MCG Ondansetron HCl (Zofran) 4 mg 1X ONCE 01/01/17 00:30 01/01/17 00:40 DC 01/01/17 01:05 4 MG Ringer's Solution 1,000 ml @ 1,000 mls/hr Q1H 01/01/17 00:30 01/01/17 01:29 Sodium Chloride 1,000 ml @ 1,000 mls/hr 1X ONCE 01/01/17 01:15 01/01/17 02:14 01/01/17 01:06 1,000 MLS/HR Allergies Allergies Allergies Coded Allergies Type Severity Reaction Last Updated Verified Iodinated Contrast- Oral and IV Dye Allergy Severe Anaphylaxis 05/26/15 Yes cefdinir Allergy Severe anaphylaxis 03/19/16 Yes ceftriaxone Allergy Severe anaphylaxis 03/19/16 Yes shellfish derived Allergy Severe 05/26/15 Yes strawberry Allergy Severe 07/18/16 Yes cefazolin Allergy Intermediate 05/26/15 Yes ciprofloxacin Allergy Intermediate RASH ONLY 07/14/16 Yes codeine Allergy Intermediate MORPHINE OK, HYDROCODONE AT HOME 03/19/16 Yes erythromycin base Allergy Intermediate 12/01/14 Yes latex Allergy Intermediate Rash 05/26/15 Yes Physical Exam Physical Exam Constitutional: Well developed, well nourished, no acute distress, non-toxic appearance. HENT: Normocephalic, atraumatic, bilateral external ears normal, oropharynx moist, no oral exudates, nose normal. Eyes: PERRLA, EOMI, conjunctiva normal, no discharge. Neck: Normal range of motion, no tenderness, supple, no stridor. Cardiovascular:Heart rate regular rhythm, no murmur Lungs & Thorax: Bilateral breath sounds clear to auscultation Abdomen: Bowel sounds normal, soft, mild tenderness, no masses, no pulsatile masses. No rebound or guarding Skin: Warm, dry, no erythema, no rash. Back: No tenderness, no CVA tenderness. Extremities: No tenderness, no cyanosis, no clubbing, ROM intact, no edema. Neurologic: Alert and oriented X 3, normal motor function, normal sensory function, no focal deficits noted. Psychologic: Affect normal, judgement normal, mood normal. Current Patient Data Vital Signs Vital Signs Date Time Temp Pulse Resp B/P (MAP) Pulse Ox O2 Delivery O2 Flow Rate FiO2 01/01/17 01:05 16 100 Room Air 01/01/17 00:10 98.6 104 131/77 (95) 98.6 Lab Values Laboratory Tests Test 01/01/17 00:10 01/01/17 00:45 Urine Collection Type Unknown Urine Color Yellow Urine Clarity Clear Urine pH 6.5 Urine Specific [place] 1.010 Urine Protein Negative mg/dL (NEG-TRACE) Urine Glucose (UA) Negative mg/dL (NEG) Urine Ketones (Stick) Negative mg/dL (NEG) Urine Blood Negative (NEG) Urine Nitrite Negative (NEG) Urine Bilirubin Negative (NEG) Urine Urobilinogen Dipstick 0.2 mg/dL (0.2 mg/dL) Urine Leukocyte Esterase Negative (NEG) Urine RBC Occ /HPF (0-2) Urine WBC Occ /HPF (0-4) Urine Squamous Epithelial Cells Occ /LPF Urine Bacteria 0 /HPF (0-FEW) Urine Mucus Slight /LPF White Blood Count 5.2 x10^3/uL (4.0-11.0) Red Blood Count 4.10 x10^6/uL (3.50-5.40) Hemoglobin 11.6 g/dL (12.0-15.5) L Hematocrit 35.7 % (36.0-47.0) L Mean Corpuscular Volume 87 fL (79-100) Mean Corpuscular Hemoglobin 28 pg (25-35) Mean Corpuscular Hemoglobin Concent 33 g/dL (31-37) Red Cell Distribution Width 14.4 % (11.5-14.5) Platelet Count 224 x10^3/uL (140-400) Neutrophils (%) (Auto) 58 % (31-73) Lymphocytes (%) (Auto) 30 % (24-48) Monocytes (%) (Auto) 9 % (0-9) Eosinophils (%) (Auto) 2 % (0-3) Basophils (%) (Auto) 1 % (0-3) Neutrophils # (Auto) 3.0 x10^3uL (1.8-7.7) Lymphocytes # (Auto) 1.5 x10^3/uL (1.0-4.8) Monocytes # (Auto) 0.5 x10^3/uL (0.0-1.1) Eosinophils # (Auto) 0.1 x10^3/uL (0.0-0.7) Basophils # (Auto) 0.0 x10^3/uL (0.0-0.2) Sodium Level 142 mmol/L (136-145) Potassium Level 3.1 mmol/L (3.5-5.1) L Chloride Level 106 mmol/L (98-107) Carbon Dioxide Level 30 mmol/L (21-32) Anion Gap 6 (6-14) Blood Urea Nitrogen 9 mg/dL (7-20) Creatinine 0.8 mg/dL (0.6-1.0) Estimated GFR (Cockcroft-Gault) 77.2 BUN/Creatinine Ratio 11 (6-20) Glucose Level 118 mg/dL (70-99) H Calcium Level 8.7 mg/dL (8.5-10.1) Total Bilirubin 0.2 mg/dL (0.2-1.0) Aspartate Amino Transferase (AST) 28 U/L (15-37) Alanine Aminotransferase (ALT) 32 U/L (14-59) Alkaline Phosphatase 53 U/L (46-116) Total Protein 6.4 g/dL (6.4-8.2) Albumin 3.5 g/dL (3.4-5.0) Albumin/Globulin Ratio 1.2 (1.0-1.7) Lipase 296 U/L (73-393) Laboratory Tests 01/01/17 00:45 Laboratory Tests 01/01/17 00:45 Course & Med Decision Making Course & Med Decision Making Evaluated patient. IV NS, IV Zofran and fentanyl (she did not drive). At 0130 AM : lab unremarkable. No vomiting or diarrhea here. No work note, prescription for Bentyl and Zofran. Abdominal pain precautions were given. Repeat exam: abdomen soft with no evidence of acute surgical abdomen. My differential for abdominal pain includes but is not limited to appendicitis; renal stones; ureterolithiasis; pancreatitis; urinary tract infection; bowel obstruction; irritable bowel. I have spoken with the patient and/or caregivers. I have explained the patient' s condition, diagnosis and treatment plan based on the information available to me at this time. I have answered the patient's and/or caregiver's questions and addressed any concerns. The patient and/or caregivers have as good an understanding of the patient's diagnosis, condition and treatment plan as can be expected at this point. The patient's condition is stable and appropriate for discharge from the emergency department. The patient will pursue further outpatient evaluation with the primary care physician or other designated or consulting physician as outlined in the discharge instructions. The patient and/or caregivers are agreeable to this plan of care and follow-up instructions have been explained in detail. The patient and/or caregivers have received these instructions in written format and have expressed an understanding of the discharge instructions. The patient and/or caregivers are aware that any significant change in condition or worsening of symptoms should prompt an immediate return to this or the closest emergency department or [facility] Dis[facility] Dragon Disclaimer This electronic medical record was generated, in whole or in part, using a voice recognition dictation system. Departure Departure Impression: Primary Impression: Gastroenteritis Additional Impression: Viral syndrome Disposition: 01 HOME, SELF-CARE Condition: STABLE Referrals: EVELIA CORBETT (PCP) Patient Instructions: Viral Gastroenteritis Scripts Ondansetron (ZOFRAN ODT) 4 Mg Tab.rapdis 4 MG PO BID Y for NAUSEA/VOMITING, #10 TAB Prov: KATHARINE DOUGLAS MD 01/01/17 Dicyclomine Hcl (BENTYL) 10 Mg Capsule 10 MG PO QID, #30 TAB Prov: KATHARINE DOUGLAS MD 01/01/17 Problem Qualifiers KATHARINE DOUGLAS MD Jan 01, 2017 00:54
[2017-01-01 00:59] LABS: BASO % 1 % (0-3); EOS % 2 % (0-3); HEMATOCRIT 35.7 % (36.0-47.0); HEMOGLOBIN 11.6 g/dL (12.0-15.5); LYMPH # 1.5 x10^3/uL (1.0-4.8); LYMPH % 30 % (24-48); MEAN CORPUSCULAR HEMOGLOBIN 28 pg (25-35); MEAN CORPUSCULAR HGB CONC 33 g/dL (31-37); MEAN CORPUSCULAR VOLUME 87 fL (79-100); MONO % 9 % (0-9); NEUT % 58 % (31-73); PLATELET COUNT 224 x10^3/uL (140-400); RED CELL DISTRIBUTION WIDTH 14.4 % (11.5-14.5); WHITE BLOOD COUNT 5.2 x10^3/uL (4.0-11.0)
[2017-01-01 01:03] LABS: BILIRUBIN,URINE NEGATIVE (NEG); GLUCOSE,URINE NEGATIVE (NEG); NITRITE,URINE NEGATIVE (NEG); PH,URINE 6.5; PROTEIN,URINE NEGATIVE (NEG-TRACE); UROBILINOGEN,URINE 0.2 mg/dL (0.2 mg/dL)
[2017-01-01 01:10] LABS: CALCIUM 8.7 mg/dL (8.5-10.1); CREATININE 0.8 mg/dL (0.6-1.0); GFR 77.2; POTASSIUM 3.1 mmol/L (3.5-5.1)
[2017-01-01 01:15] LABS: BACTERIA,URINE 0 /HPF (0-FEW); RBC,URINE OCC /HPF (0-2); SQUAMOUS EPITHELIAL CELL,UR OCC /LPF; WBC,URINE OCC /HPF (0-4)
[2017-01-01] MEDS ORDERED: IV NORMAL SALINE 1000ML BAG 1,000 ML IV ONE (01:15)
[2017-01-01 01:17] LABS: ALBUMIN 3.5 g/dL (3.4-5.0); ALBUMIN/GLOBULIN RATIO 1.2 (1.0-1.7); TOTAL BILIRUBIN 0.2 mg/dL (0.2-1.0); TOTAL PROTEIN 6.4 g/dL (6.4-8.2)
[2017-01-01 01:30] VITALS: BP 108/62
[2017-01-01] MEDS ORDERED: ONDA4TAB10 PO (01:35)
[2017-01-01] MEDS ORDERED: DICY10CA53 PO (01:35)
== END 2017-01-01 01:42 | disposition home or self-care (01) ==
LOC: ER 23:41
DX: A08.4 Viral intestinal infection, unspecified (principal); M06.9 Rheumatoid arthritis, unspecified; E89.0 Postprocedural hypothyroidism; Z87.442 Personal history of urinary calculi; Z88.1 Allergy status to other antibiotic agents; Z90.49 Acquired absence of other specified parts of digestive tract; Z90.710 Acquired absence of both cervix and uterus; Z91.041 Radiographic dye allergy status; Z88.8 Allergy status to other drugs, medicaments and biological substances; Z91.040 Latex allergy status; Z91.013 Allergy to seafood; Z88.5 Allergy status to narcotic agent; Z91.018 Allergy to other foods
CPT/HCPCS: 36415; 80053; 81001; 83690; 85025; 96361; 96374; 96375; 99284; J2405; J3010; J7030